=== PATIENT | male | born 1995 | race Caucasian/White ===

== ENCOUNTER 2024-06-07 16:07 | Inpatient (IN) ==
--- OUTSIDE RECORDS SUMMARY | 2024-06-07 16:14 | External Medical Summary ---
Author Name Unknown Address Unknown Organization [id number]:[facility] [place] [address] [place] [address] Laboratory Report Ordering Provider Test Date Status DMITRY GALVANN 06/02/2024 15:17:20 Final Observation Date Value Abnormality Reference (Units ) Status Chlamydia trachomatis rRNA [Presence] in Specimen by FLORENCE with probe detection 06/02/2024 15:17:20 Negative Negative Final No Chlamydia trachomatis det ected by inner layer scrubber tender-mediated nucleic acid amplification. Neisseria gonorrhoeae rRNA [ Presence] in Specimen by FLORENCE with probe detection 06/02/2024 15:17:20 Negative Negative Final No Neisseria gonorrhoeae det ected by inner layer scrubber tender-mediated nucleic acid amplification. Performing Location [facility] [place] [address] [place] [address]
--- OUTSIDE RECORDS SUMMARY | 2024-06-07 16:14 | External Medical Summary | Summary of Care ---
Author Name Unknown Organization [facility] Address [address] [place] [address] Phone [phone] Care Team Providers Care Cylinder Head Assembler Name Role Phone Andrea Romero Primary Care Provider [phone] Reason for Visit * Reason Onset Date Comments Advice 06/04/202406/06 Encounter Details Date Type Department Care Team ([facility] st Contact Info) Description 06/04/2024 Telephone [facility] [address] [place] [address] Andrea Romero CRNP [address] [place] [address] Advice (06/06) Allergies No known active allergiesdocumented as of this encounter (statuses as of 06/06/2024) Medications Albuterol Sulfate HFA 108 (90 Base) MCG/ACT Inhalation Aerosol SolutionIndicati ons:Acute cough Inhale 2 Puffs by mouth every 6 hours as needed for Wheezing. 18 g 3 Active Additional Information Patient not taking.Reported on 03/29/2024 Benzonatate 100 MG Oral Capsule (Tessalon Perlever)Indicatio ns:Upper respiratory tract infection, unspecified type Take 1 Capsule by mouth 3 times a day as needed for Cough. 20 Capsule 1 4 Active Cyclobenzaprine HCl 10 MG Oral Tablet (Flexeril) Take 1 Tablet by mouth 3 times a day as needed for Pain. 30 Tablet 4 Active Albuterol Sulfate HFA 108 (90 Base) MCG/ACT Inhalation Aerosol Solution Inhale 2 Puffs by mouth every 4 hours as needed for Cough. 18 g 5 Active Amoxicillin-Pot Clavulanate 875-125 MG Oral Tablet (Augmentin)Indic ations:Acute serous otitis media of left ear, recurrence not specified Take 1 Tablet by mouth in the morning and 1 Tablet before bedtime. Do all this for 10 days. 20 Tablet 5 06/13/19 25 Active Mupirocin 2 % External Ointment (Bactroban)Indic ations:Impetigo Apply topically to affected area 3 times a day for 10 days. 22 g 1 5 06/13/19 25 Active documented as of this encounter (statuses as of 06/06/2024) Active Problems Problem Noted Date Diagnosed Date Tobacco use disorder 05/10/2015 Respiratory symptoms 02/16/2006 Overview (12/12/2018): ICD-10 update of inactive term Chronic sinusitis 07/07/2005 Allergic rhinitis 07/07/2005 Undiagnosed cardiac murmurs documented as of this encounter (statuses as of 06/06/2024) Resolved Problems Problem Noted Date Diagnosed Date Resolved Date Paranoia 08/31/2021 07/27/2023 Obesity, pediatric, BMI 95th to 98th percentile for age 0306/03/2009 02/23/2022 Overview (06/03/2009): Per Obesity Taxonomy OBESITY, UNSPECIFIED 02/16/2006 010 Overview (06/03/2009): Per Obesity Taxonomy ADVANCE DIRECTIVE INFORMATION 01/05/2005 01/14/2024 Overview (01/05/2005): Not applicable (under age of 18) documented as of this encounter (statuses as of 06/06/2024) Immunizations Name Administration Dates Next Due DTP/HIB (Tetramune) 02/20/1996 DTaP Dipth/Tet/Acell Pertussis (Infanrix), Peds 02/12/2001,08/13/1997,06/26/1996,04/24,02/20/1996 HEP A - Hepatitis A (Ped/Ado le, 2-18 Yrs) 02/16/2006 HIB PRP-T, 4 Dose, PF, IM (H iberix, ActHib) 04/09/1997,06/26/1996,04/24/1996,02/19 Hepatitis A, Ped/Adol., 18 y ear and below, 2-Dose 08/19/2008 Hepatitis B, 0-19 yrs 09/23/1996,02/20/1996,12/10 IPV - Polio Virus Vaccine (Inact) 02/12/2001 MMR - Measles/Mumps/Rubella Vaccine 02/12/2001,0 04/09/1997 Meningococcal Conjugate Vacc ine (Menactra/Menveo) 07/03/2013,08/19/2008 OPV - Polio Virus Vaccine (Oral) 08/17/1997,04/12,02/20/1996 Pneumococcal Polysaccharide PPV23 (Pneumovax) 11/19/2015 Seasonal Influenza Vac., MDV , IM, 0.5 mL (Fluzone) 12/21/2013,12/04/2012,11/28/2011,02/16 Seasonal Influenza, PF, 6 M & above, IM , (FluLaval or Fluzone) 01/19/2022,12/31/2019 TB Melia Test 12/23/1996 TDAP (age 10 and older)(Boostrix) 02/16/2006 Varicella Vaccine (Chicken Pox) 08/19/2008,04/09 documented as of this encounter Social History Tobacco Use Types Packs/Day Years Used Date Smoking Tobacco: Every Day Cigarettes 1 9 Started: 06/23/2015 Smokeless Tobacco: Never Alcohol Use Standard Drinks/Week Comments No 0 (1 standard drink = 0.6 oz pur e alcohol) PHQ-2 Answer Date Recorded PHQ Adult Total Score 0 07/27/2023 Hunger Vital Sign Answer Date Recorded Within the past 12 months, y ou worried that your food would run out before you got the money to buy more. Never true 07/27/19 24 Within the past 12 months, t he food you bought just didn't last and you didn't have money to get more. Never true 07/27/2023 Childcare Answer Date Recorded Do you feel overwhelmed with taking care of a child, family member or friend? No 07/27/2023 Does your family need help f inding childcare? (Household - for ages 0-17 years) Not on file 07/27/2023 Clothing Answer Date Recorded Have you been unable to get clothing when it was really needed? No 07/27/2023 Is your family able to get c lothes or diapers when needed? (Household - for ages 0-17 years) Not on file 07/27/2023 Personal Safety Answer Date Recorded Do you feel unsafe or have concerns for your saf ety? No 07/27/2023 Do you have concerns for you r family's safety? (Household - for ages 0-17 years) Not on file 07/27/2023 Utilities Answer Date Recorded Do you have trouble paying y our heating, water, or electric bill? No 07/27/2023 Is your family able to pay t he heat, water, or electric bill? (Household - for ages 0-17 years) Not on file 07/27/2023 Does your family have access to good internet? (Household - for ages 0-17 years) Not on file 07/27/2023 Employment Status Answer Date Recorded Are you unemployed or without regular income? No 07/27/2023 Does the household have a re lar source of income? (Household - for ages 0-17 years) Not on file 07/27/2023 Social Connections Answer Date Recorded How often do you feel lonely or isolated from th ose around you? Never 07/27/2023 Financial Resource Strain Answer Date R ecorded Do you have any trouble payi ng for your medications, or do you think you might in the future? No 07/27/2023 Does your family have troubl e paying for medicine? (Household - for ages 0-17 years) Not on file 07/27/2023 Transportation Needs Answer Date Record ed READ ONLY Do you have troubl e getting a ride to medical visits or work? Never True 07/27/2023 Does your family have a hard time getting a ride to doctors visits? (Household - for ages 0-17 years) Not on file 07/27/2023 Has lack of transportation k ept you from medical appointments, meetings, work, or from getting things needed for daily living? Check all that apply. (Adult - for ages 18 years and over) Not on file 07/27/2023 Do you (or your family) have trouble finding or paying for a ride (transportation)? (Household - for ages 0-17 years) Not on file 07/27/2023 Housing Stability Answer Date Recorded Do you currently live in a s helter or have no steady place to sleep at night? No 07/27/2023 READ ONLY Do you think you a re at risk of becoming homeless? No 07/27/2023 Does your family worry about paying for your home or becoming homeless? (Household - for ages 0-17 years) Not on file 0 07/27/2023 Are you homeless or worried that you might be in the future? (Adult - for ages 18 years and over) Not on file Are you (or your family) leticia eless or worried that you might be in the future? (Household - for ages 0-17 years) Not on file Food Insecurity Answer Date Recorded Do you need food for this week? No 07/27/2023 Are you able to get enough f ood for your family? (Household - for ages 0-17 years) Not on file 07/27/2023 Does your family need food t his week? (Household - for ages 0-17 years) Not on file 07/27/2023 Do you always have enough fo od for your family? (Household - for ages 0-17 years) Not on file 07/27/2023 Food Insecurity Answer Date Recorded Within the past 12 months, y ou worried that your food would run out before you got the money to buy more. Never true 07/27/19 24 Within the past 12 months, t he food you bought just didn't last and you didn't have money to get more. Never true 07/27/2023 Do you need food for this week? No 07/27/2023 Sex and Gender Information Value Date Recorded Sex Assigned at Male 01/16/2023 12:42 PM EST Legal Sex Male 6:11 AM EST Gender Identity Male 01/16/2023 12:42 PM EST Sexual Orientation Choose not to disclose 2018 11:54 AM EDT documented as of this encounter Miscellaneous Notes * Telephone Encounter - Tammy Zamudio LPN - 06/06/2024 10:36 AM EDT T/C to pt at this time LVM to call clinic back at earliest convenience at [phone] * Telephone Encounter - Andrea Romero CRNP - 06/06/2024 9:31 AM EDT Needs appointment. If none available can go to CC. * Telephone Encounter - Erlinad Matias OSA - 06/04/2024 5:11 PM EDT Patient called and asked to talk to Andrea Romero. NEW. States that he is sweating from his nipple area on the right side. And he is having a very dry mouth even though he is drinking a lot of water.Also tooth pain. Please advise, thank you. documented in this encounter Plan of Treatment Health Maintenance Due Date Last Done Comments HIV Screening 12/19/2010 Hepatitis C Screening 12/19/2013 DTap/Tdap Vaccines (7 - Td or Tdap) 02/17/2016 02/16/2006, 02/12/2001, 08/13/1997, Additional history exists Pneumococcal Vaccine: Pediatrics (0 to 5 Years) and At-Risk Patients (6 to 18 Years and 19+ Years) (2 of 2 - PCV) 11/18/2016 11/19/2015 COVID-19 Vaccine (1 - season) 2023 Influenza Vaccine (FLU shot) (#1) 2023 01/19/2022, 12/31/2019, 12/21/2013, Additional history exists Depression Screening 07/26/2024 07/27/2023 Hepatitis B Vaccine Completed 09/23/1996, 02/20/1996, 1995 MENINGOCOCCAL (MENACTRA/MENVEO) Completed 07/03/2013, 08/19/2008 HPV (Gardasil) Vaccine Aged Out No lo nger eligible based on patient's age to complete this topic Meningitis B Vaccine (Bexsero/Trumemba) Aged Out No longer eligible based on patient's age to complete this topic documented as of this encounter Medical Devices Not on filedocumented as of this encounter Care Teams Cylinder Head Assembler Relationship Specialty Start Date End Date Andrea Romero CRNP [address] [place] [phone] PCP - General Nurse Practitioner 01/01/24 documented as of this encounter
--- OUTSIDE RECORDS SUMMARY | 2024-06-07 16:14 | External Medical Summary | Summary of Care ---
Author Name Unknown Organization [facility] Address [address] [place] [address] Phone [phone] Care Team Providers Care Seeing Eye Dog Trainer Name Role Phone Nick Andreage WOLFF Primary Care Provider Reason for Visit * Reason Onset Date Comments No Show 04/19/2024 [facility] No Show Auto mation Encounter Details Date Type Department Care Team ([facility] st Contact Info) Description 04/19/2024 Telephone [facility] [address] [place] [phone] Shelli Tello PA-C [address] [place] [phone] No Show ([place] No Show Automation) Allergies No known active allergiesdocumented as of this encounter (statuses as of 04/19/2024) Medications Albuterol Sulfate HFA 108 (90 Base) MCG/ACT Inhalation Aerosol SolutionIndicati ons:Acute cough Inhale 2 Puffs by mouth every 6 hours as needed for Wheezing. 18 g 3 Active Additional Information Patient not taking.Reported on 03/29/2024 Benzonatate 100 MG Oral Capsule (Tesdejuan Egan)Indicatio ns:Upper respiratory tract infection, unspecified type Take [...] needed for Cough. 18 g 5 Active documented as of this encounter (statuses as of 04/19/2024) Active Problems Problem Noted Date Diagnosed Date Tobacco use disorder 05/10/2015 Respiratory symptoms 02/16/2006 Overview (12/12/2018): ICD-10 update of inactive term Chronic sinusitis 07/07/2005 Allergic rhinitis 07/07/2005 Undiagnosed cardiac murmurs documented as of this encounter (statuses as of 04/19/2024) Resolved Problems Problem Noted Date Diagnosed Date Resolved Date Paranoia 08/31/2021 07/27/2023 Obesity, pediatric, BMI 95th to 98th percentile for age 0306/03/2009 02/23/2022 Overview (06/03/2009): Per Obesity Taxonomy OBESITY, UNSPECIFIED 02/16/2006 010 Overview (06/03/2009): Per Obesity Taxonomy ADVANCE DIRECTIVE INFORMATION 01/05/2005 01/14/2024 Overview (01/05/2005): Not applicable (under age of 18) documented as of this encounter (statuses as of 04/19/2024) Immunizations Name Administration Dates Next Due HEP A - Hepatitis A (Ped/Ado le, 2-18 Yrs) 02/16/2006 Hepatitis A, Ped/Adol., 18 y ear and below, 2-Dose 08/19/2008 Meningococcal Conjugate Vacc ine (Menactra/Menveo) 07/03/2013,08/19/2008 Pneumococcal Polysaccharide PPV23 (Pneumovax) 11/19/2015 Seasonal Influenza Vac., MDV , IM, 0.5 mL (Fluzone) 12/21/2013,12/04/2012,11/28/2011,02/16 Seasonal Influenza, PF, 6 M & above, IM , (FluLaval or Fluzone) 01/19/2022,12/31/2019 TDAP (age 10 and older)(Boostrix) 02/16/2006 Varicella Vaccine (Chicken Pox) 08/19/2008 documented as of this encounter Social History Tobacco Use Types Packs/Day Years Used Date Smoking Tobacco: Every Day Cigarettes 1 8.8 Started: 06/23/2015 Smokeless Tobacco: Never Alcohol Use [...] 07/27/2023 Does the household have a re gular source of income? (Household - for ages [...] encounter Miscellaneous Notes * Telephone Encounter - [facility], No Show - 04/19/2024 6:25 AM EST Dear Kadeem Vargas, Looks like you missed an appointment with SHELLI TELLO on 04/16/2024 at 02:20 PM. If you haven't already rescheduled, you have a couple of options: Reschedule in [employer] Community/scheduling Call us at [phone] Can't make a future appointment? Cancel and let someone else have your spot! It's easy to do via legalPAD or by calling us. Thanks for trusting [facility] with your care. We hope to see you back in our office soon. Sincerely, SHELLI TELLO documented in this encounter Plan of Treatment Health Maintenance Due Date Last Done Comments HIV Screening 12/19/2010 Hepatitis C Screening 12/19/2013 DTap/Tdap Vaccines (7 - Td or Tdap) 02/17/2016 02/16/2006, 02/12/2001, 08/13/1997, Additional history exists Pneumococcal Vaccine: Pediatrics (0 to 5 Years) and At-Risk Patients (6 to 18 Years and 19+ Years) (2 of 2 - PCV) 11/18/2016 11/19/2015 COVID-19 Vaccine (2023- season) 2023 Influenza Vaccine (FLU shot) (#1) 2023 01/19/2022, 12/31/2019, 12/21/2013, Additional history exists Depression Screening 07/26/2024 07/27/2023 Hepatitis B Vaccine Completed 09/23/1996, 02/20/1996, 1995 MENINGOCOCCAL (MENACTRA/MENVEO) Completed 07/03/2013, 08/19/2008 HPV (Gardasil) Vaccine Aged Out No lo nger eligible based on patient's age to complete this topic documented as of this encounter Medical Devices Not on filedocumented as of this encounter Additional Health Concerns Infection Onset Date Last Indicated Resolved Time Influenza (seasonal) 04/12/2024 04/12/2024 documented as of this encounter Care Teams Seeing Eye Dog Trainer Relationship Specialty Start Date End Date Andrea Romero CRNP [address] [place] [id number] PCP - General Nurse Practitioner 01/01/24 documented as of this encounter
--- OUTSIDE RECORDS SUMMARY | 2024-06-07 16:14 | External Medical Summary | Summary of Care ---
Author Name Unknown Organization [facility] Address [address] [place] [address] Phone [phone] Care Team Providers Care Computer Numerical Control Programmer Name Role Phone Andrea Romero Primary Care Provider [phone] Reason for Visit * Reason Onset Date Comments Advice 06/04/2024 Encounter Details Date Type Department Care Team ([facility] st Contact Info) Description 06/04/2024 Telephone [facility] [address] [place] [address] Andrea Romero CRNP [address] [place] [address] Advice Allergies No known active allergiesdocumented as of [...] No 07/27/2023 Does the [facility] have a [facility]? (Household - for ages [...] call clinic back at earliest convenience at [phone] * Telephone Encounter - Andrea Romero CRNP - 06/06/2024 9:31 AM EDT Needs appointment. If none available can go to CC. * Telephone Encounter - Erlinda Matias OSA - 06/04/2024 5:11 PM EDT [...] 2 - PCV) 11/18/2016 11/19/2015 COVID-19 Vaccine ( - season) 2023 Influenza Vaccine (FLU shot) [...] filedocumented as of this encounter Care Teams Computer Numerical Control Programmer Relationship Specialty Start Date End Date Andrea Romero CRNP [address] [place] [address] PCP - General Nurse Practitioner 01/01/24 documented as of this encounter
--- OUTSIDE RECORDS SUMMARY | 2024-06-07 16:14 | External Medical Summary ---
Author Name Unknown Address Unknown Organization K01:[facility] [place] [address] [place] [address] Laboratory Report Ordering Provider Test Date Status DMITRY GALVANN 06/02/2024 15:17:20 Final Observation Date Value Abnormality Reference (Units ) Status Trichomonas vaginalis rRNA [Presence] in Specimen by FLORENCE with probe detection 06/02/2024 15:17:20 Negative Negative Final No Trichomonas vaginalis det ected by excelsior machine tender mediated nucleic acid amplification. Performing Location [facility] [place] [address] [place] [address]
--- OUTSIDE RECORDS SUMMARY | 2024-06-07 16:14 | External Medical Summary ---
Author Name Unknown Address Unknown Organization K01:[facility] [place] - [address] [address] Laboratory Report Ordering Provider Test Date Status YUDELKA GALVAN 06/02/2024 15:17:20 Final Observation Date Value Abnormality Reference (Units ) Status Color of Urine by Auto 06/02/2024 15:17:20 Colorless Colorless, Light Yellow, Yellow, Dark Yellow Final Clarity, Urine 06/02/2024 15:17:20 Clear Clear Final Glucose [Mass/volume] in Urine by Automated test strip 06/02/2024 15:17:20 Negative Negative (mg/dL) Final Bilirubin.total [Presence] in Urine by Automated test strip 06/02/2024 15:17:20 Negative Negative Final Ketones [Mass/volume] in Urine by Automated test strip 06/02/2024 15:17:20 Negative Negative (mg/dL) Final Specific gravity, Urine 06/02/2024 15:17:20 1.003 1.003-1.030 Final Hemoglobin [Presence] in Urine by Automated test strip 06/02/2024 15:17:20 Negative Negative Final pH, Urine 06/02/2024 15:17:20 6.5 5.0-7.5 (Units) Final Protein [Mass/volume] in Urine by Automated test strip 06/02/2024 15:17:20 Negative Negative (mg/dL) Final Urobilinogen [Mass/volume] in Urine by Automated test strip 06/02/2024 15:17:20 Normal Normal (mg/dL) Final Nitrite [Presence] in Urine by Automated test strip 06/02/2024 15:17:20 Negative Negative Final Leukocyte esterase [Presence] in Urine by Automated test strip 06/02/2024 15:17:20 Negative Negative Final RBC, Urine 06/02/2024 15:17:20 0-2 0-2 (/HPF) Final WBC, Urine 06/02/2024 15:17:20 0-2 0-2 (/HPF) Final Bacteria [#/area] in Urine sediment by Microscopy high power field 06/02/2024 15:17:20 0-25 0-25 (/HPF) Final CULTURE, URINE - GUERO 06/02/2024 15:17:20 Final Culture not indicated by uri nalysis results\[id number]\ Performing Location [facility] [place] - [facility] [address] [facility] [address]
--- OUTSIDE RECORDS SUMMARY | 2024-06-07 16:14 | External Medical Summary | Summary of Care ---
Author Name Unknown Organization [facility] Address [address] [place] [address] Phone [phone] Care Team Providers Care Content Writer Name Role Phone Nick Andreage WOLFF Primary Care Provider [phone] Reason for Visit * Reason Onset Date Comments Test Results 06/03/2024 Encounter Details Date Type Department Care Team ([facility] Contact Info) Description 06/03/2024 Telephone [facility] [address] [place] [address] Jason Caputo PA-C [address] [place] [phone] Test Results Allergies No known active allergiesdocumented as of this encounter (statuses as of 06/04/2024) Medications Albuterol Sulfate HFA 108 (90 Base) [...] as of this encounter (statuses as of 06/04/2024) Active Problems Problem Noted Date Diagnosed Date Tobacco use disorder 05/10/2015 Respiratory symptoms 02/16/2006 Overview (12/12/2018): ICD-10 update of inactive term Chronic sinusitis 07/07/2005 Allergic rhinitis 07/07/2005 Undiagnosed cardiac murmurs documented as of this encounter (statuses as of 06/04/2024) Resolved Problems Problem Noted Date Diagnosed Date Resolved Date Paranoia 08/31/2021 07/27/2023 Obesity, pediatric, BMI 95th to 98th percentile for age 0306/03/2009 02/23/2022 Overview (06/03/2009): Per Obesity Taxonomy OBESITY, UNSPECIFIED 02/16/2006 010 Overview (06/03/2009): Per Obesity Taxonomy ADVANCE DIRECTIVE INFORMATION 01/05/2005 01/14/2024 Overview (01/05/2005): Not applicable (under age of 18) documented as of this encounter (statuses as of 06/04/2024) Immunizations Name Administration Dates Next Due HEP [...] encounter Miscellaneous Notes * Telephone Encounter - Yvonne Lozano LPN - 06/03/2024 5:09 PM EDT I identified pt by name and , verified by patient. Pt has been informed of below message and verbalized understanding. * Telephone Encounter - Jason Caputo PA-C - 06/03/2024 3:31 PM EDT Urine and STD tests came back negative. I advise follow up w/ PCP if symptoms continue documented in this encounter Plan of Treatment Health Maintenance Due Date Last Done Comments HIV Screening 12/19/2010 Hepatitis C Screening 12/19/2013 DTap/Tdap Vaccines (7 - Td or Tdap) 02/17/2016 02/16/2006, 02/12/2001, 08/13/1997, Additional history exists Pneumococcal Vaccine: Pediatrics (0 to 5 Years) and At-Risk Patients (6 to 18 Years and 19+ Years) (2 of 2 - PCV) 11/18/2016 11/19/2015 COVID-19 Vaccine (1 - 2023- season) 2023 Influenza Vaccine (FLU shot) (#1) [...] filedocumented as of this encounter Care Teams Content Writer Relationship Specialty Start Date End Date Andrea Romero CRNP [address] [place] [address] PCP - General Nurse Practitioner 01/01/24 documented as of this encounter
--- OUTSIDE RECORDS SUMMARY | 2024-06-07 16:14 | External Medical Summary | Summary of Care ---
Author Name Unknown Organization [facility] Address [address] [place] [address] Phone [phone] Care Team Providers Care Client Architect Name Role Phone Andrea Romero Primary Care Provider [phone] Reason for Visit * Reason Onset Date Comments Advice 06/04/202406/06 Encounter Details Date Type Department Care Team ([facility] st Contact Info) Description 06/04/2024 Telephone [facility] [address] [place] [address] Andrea Romero CRNP [address] [place] [address] Advice (06/06) Allergies No [...] call clinic back at earliest convenience at [phone] * Telephone Encounter - Andrea Romero CRNP [...] filedocumented as of this encounter Care Teams Client Architect Relationship Specialty Start Date End Date Andrea Romero CRNP [address] [place] [phone] PCP - General Nurse Practitioner 01/01/24 documented as of this encounter
--- OUTSIDE RECORDS SUMMARY | 2024-06-07 16:14 | External Medical Summary | Summary of Care ---
Author Name Unknown Organization [facility] Address [address] [place] [address] Phone [phone] Care Team Providers Care Monitoring Coordinator Name Role Phone Andrea Romero Primary Care Provider Reason for Visit * Reason Comments Ear Pain Bilateral ear pain Urinary Tract Infection Symptoms Pain in genital area Other Bump on head Headache Encounter Details Date Type Department Care Team (Latest Contact Info) Description 06/02/2024 3:00 PM EDT Convenient Care Visit [facility] [address] [place] [address] Jason Caputo PA-C [address] [place] [id number] UTI symptoms*; Impetigo; Acute serous otitis media of left ear, recurrence not specified; Dysuria Allergies No known active allergiesdocumented as of this encounter (statuses as of 06/03/2024) Medications Albuterol Sulfate HFA 108 (90 Base) MCG/ACT Inhalation Aerosol SolutionIndicati ons:Acute cough Inhale 2 Puffs by mouth every 6 hours as needed for Wheezing. 18 g 3 Active Additional Information Patient not taking.Reported on 03/29/2024 Benzonatate 100 MG Oral Capsule (Katey Egan)Indicatio ns:Upper respiratory tract infection, unspecified type [...] as of this encounter (statuses as of 06/03/2024) Active Problems Problem Noted Date Diagnosed Date Tobacco use disorder 05/10/2015 Respiratory symptoms 02/16/2006 Overview (12/12/2018): ICD-10 update of inactive term Chronic sinusitis 07/07/2005 Allergic rhinitis 07/07/2005 Undiagnosed cardiac murmurs documented as of this encounter (statuses as of 06/03/2024) Resolved Problems Problem Noted Date Diagnosed Date Resolved Date Paranoia 08/31/2021 07/27/2023 Obesity, pediatric, 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 to 98th percentile for age 0306/03/2009 02/23/2022 Overview (06/03/2009): Per Obesity Taxonomy OBESITY, UNSPECIFIED 02/16/2006 010 Overview (06/03/2009): Per Obesity Taxonomy ADVANCE DIRECTIVE INFORMATION 01/05/2005 01/14/2024 Overview (01/05/2005): Not applicable (under age of 18) documented as of this encounter (statuses as of 06/03/2024) Immunizations Name Administration Dates Next Due HEP [...] Date Smoking Tobacco: Every Day Cigarettes 1 8.9 Started: 06/23/2015 Smokeless Tobacco: Never Tobacco Cessation:Ready to Q uit: Not Asked; Counseling Given: Not Answered Alcohol Use Standard Drinks/Week Comments No 0 [...] money to buy more. Never true 07/27/19 Within the past 12 months, t he [...] AM EDT documented as of this encounter Last Filed Vital Signs Vital Sign Reading Time Taken Comments Blood Pressure 112/68 06/02/2024 3:01 PM EDT Pulse 97 06/02/2024 3:01 PM EDT Temperature 37.7 °C (99.9 °F) 06/02/2024 3:01 PM ED T Respiratory Rate 16 06/02/2024 3:01 PM EDT Oxygen Saturation 97% 06/02/2024 3:01 PM EDT Inhaled Oxygen Concentration - - Weight 83.6 kg (184 lb 6.4 oz) 06/02/2024 3:01 P M EDT Height 177.8 cm (5' 10") 06/02/2024 3:01 PM EDT Body Mass Index 26.46 06/02/2024 3:01 PM EDT documented in this encounter Patient Instructions * Patient Instructions* Jason Caputo PA-C - 06/02/2024 3:23 PM EDT Left ear infection, mild impetigo on scalp- augmentin should cover both Use bactroban on scalp Pain on urination has unclear cause- could be dehydration- will order testing and reach out w// results documented in this encounter Progress Notes * Jason Caputo PA-C - 06/02/2024 3:16 PM EDT Images from the original note were not included. History of Present Illness Kadeem Vargas is a 28 year old male that presents for Ear Pain (Bilateral ear pain), Urinary Tract Infection Symptoms (Pain in genital area), Other (Bump on head), and Headache 1 week of congestion, cough, ear pain- slight rash on top of head- NKI- been there a few dys- itchy. Also dysuria past few dys, no genital swellign or lesions- unsure of STI exp Ear Pain There is pain in both ears. This is a new problem. The current episode started in the past 7 days. The problem occurs constantly. The problem has been unchanged. There has been no fever. The pain is moderate. Associated symptoms include coughing, headaches and rhinorrhea. He has tried nothing for the symptoms. Urinary Tract Infection Symptoms Headache Physical Exam Vitals: 06/02/24 1501 Temp: 37.7 °C (99.9 °F) Pulse: 97 Resp: 16 SpO2: 97% BP: 112/68 BMI: 26.46 Physical Exam HENT: Head: Normocephalic and atraumatic. Right Ear: Ear canal normal. Left Ear: Ear canal normal. Ears: Comments: Effusions B TMS, injection L TM Nose: Congestion and rhinorrhea present. Mouth/Throat: Mouth: Mucous membranes are moist. Pharynx: Oropharynx is clear. No posterior oropharyngeal erythema. Eyes: Conjunctiva/sclera: Conjunctivae normal. Cardiovascular: Rate and Rhythm: Normal rate and regular rhythm. Heart sounds: Normal heart sounds. Pulmonary: Effort: Pulmonary effort is normal. Breath sounds: Normal breath sounds. Abdominal: General: Abdomen is flat. Bowel sounds are normal. There is no distension. Palpations: Abdomen is soft. Tenderness: There is no abdominal tenderness. There is no right CVA tenderness or left CVA tenderness. Genitourinary: Penis: Normal. Testes: Normal. Comments: Testes descended- no rashes lesions externally Lymphadenopathy: Cervical: No cervical adenopathy. Skin: Comments: Top of head has a nickel size area of erythema, crusting- mild ttp- midline- single lesion- not dermatomal I have reviewed the following results: UA neg here Assessment and Plan UTI symptoms (Primary) - URINALYSIS, POINT OF CARE (ENTER/EDIT) - URINALYSIS, REFLEX TO CULTURE (NOT FOR NEUTROPENIC PATIENTS); Future; Expected date: 06/03/2024 - CHLAMYDIA TRACHOMATIS AND NEISSERIA GONORRHOEAE, AMPLIFIED PROBE; Future; Expected date: 06/03/2024 - TRICHOMONAS VAGINALIS, AMPLIFIED PROBE; Future; Expected date: 06/03/2024 - URINALYSIS, REFLEX TO CULTURE (NOT FOR NEUTROPENIC PATIENTS) - CHLAMYDIA TRACHOMATIS AND NEISSERIA GONORRHOEAE, AMPLIFIED PROBE - TRICHOMONAS VAGINALIS, AMPLIFIED PROBE Impetigo - Mupirocin 2 % External Ointment (Bactroban); Apply topically to affected area 3 times a day for 10 days. Acute serous otitis media of left ear, recurrence not specified - Amoxicillin-Pot Clavulanate 875-125 MG Oral Tablet (Augmentin); Take 1 Tablet by mouth in the morning and 1 Tablet before bedtime. Do all this for 10 days. Dysuria Follow Up: Return if symptoms worsen or fail to improve. Left ear infection, mild impetigo on scalp- augmentin should cover both Use bactroban on scalp Pain on urination has unclear cause- could be dehydration- will order testing and reach out w// results Wrap-Up Follow Up: Return if symptoms worsen or fail to improve. Time: I spent a total of 10-19 minutes (exact time 15 mins) on the date of service in preparation, delivery, and documentation of the care provided to Kadeem Vargas excluding any time spent in the performance of separately billed services. documented in this encounter Nursing Notes * Thomas Miles CMA - 06/02/2024 3:04 PM EDT Kadeem Vargas is a 28 year old male who presents to walk-in clinic today complaining of Chief Complaint Patient presents with Ear Pain Bilateral ear pain Urinary Tract Infection Symptoms Pain in genital area Other Bump on head Headache Onset/duration: X1 week. OTC treatments tried:Tylenol Effectiveness: NONE Patient is accompanied by no one for today's visit. documented in this encounter Plan of Treatment Pending Results Name Type Priority Associated Diagnoses Date /Time CHLAMYDIA TRACHOMATIS AND NEISSERIA GONORRHOEAE, AMPLIFIED PROBE Lab Routine UTI symptoms 06/02/2024 3:17 PM EDT TRICHOMONAS VAGINALIS, AMPLIFIED PROBE Lab Routine UTI symptoms 06/02/2024 3:17 PM EDT Scheduled Orders Name Type Priority Associated Diagnoses Orde r Schedule CHLAMYDIA TRACHOMATIS AND NEISSERIA GONORRHOEAE, AMPLIFIED PROBE Lab Routine UTI symptoms Expected: 06/03/2024, Expires: 06/02/2025 TRICHOMONAS VAGINALIS, AMPLIFIED PROBE Lab Routine UTI symptoms Expected: 06/03/2024, Expires: 06/02/2025 Health Maintenance Due Date Last Done Comments [...] Not on filedocumented as of this encounter Procedures Procedure Name Priority Date/Time Associated Diagnosis Comments URINALYSIS, REFLEX TO CULTURE Routine 06/02/2024 3:17 PM EDT UTI symptoms URINALYSIS, REFLEX TO CULTURE (CUP ONLY) Routine 06/02/2024 3:17 PM EDT UTI symptoms URINALYSIS, REFLEX TO CULTURE (NOT FOR NEUTROPENIC PATIENTS) Routine 06/02/2024 3:17 PM EDT UTI symptoms URINALYSIS, POINT OF CARE (ENTER/EDIT) Routine 06/02/2024 3:09 PM EDT UTI symptoms documented in this encounter Results * URINALYSIS, REFLEX TO CULTURE (06/02/2024 3:17 PM EDT) Color, Urine Colorless Colorless, Light Yellow, Yellow, Dark Yellow 06/03/2024 12:28 AM EDT [facility] Clarity, Urine Clear Clear 06/03/2024 12:28 AM EDT [facility] Glucose, Urine Negative Negative mg/dL 06/03/2024 12:28 AM EDT [facility] Bilirubin, Urine Negative Negative 06/03/2024 12:28 AM EDT [facility] Ketone, Urine Negative Negative mg/dL 06/03/2024 12:28 AM EDT [facility] Specific [place], Urine 1.003 1.003 - 1.030 06/03/2024 12:28 AM EDT LABORATORY C Blood, Urine Negative Negative 06/03/2024 12:28 AM EDT LABORATORY C pH, Urine 6.5 5.0 - 7.5 Units 06/03/2024 12:28 AM EDT [facility] Protein, Urine Negative Negative mg/dL 06/03/2024 12:28 AM EDT LABORATORY C Urobilinogen, Urine Normal Normal mg/dL 06/03/2024 12:28 AM EDT [facility] Nitrite, Urine Negative Negative 06/03/2024 12:28 AM EDT [facility] Esterase, Urine Negative Negative 06/03/2024 12:28 AM EDT [facility] RBC, Urine 0-2 0 - 2 /HPF 06/03/2024 12:28 AM EDT [facility] WBC, Urine 0-2 0 - 2 /HPF 06/03/2024 12:28 AM EDT [facility] Bacteria, Urine 0-25 0 - 25 /HPF 06/03/2024 12:28 AM EDT [facility] Culture, Urine 06/03/2024 12:28 AM EDT [facility] Comment:Culture not indicate d by urinalysis results Urine Urine specimen obtained by clean catch procedure / Unknown Non-blood Collection / Unknown 06/02/2024 3:17 PM EDT 06/02/2024 3:17 PM EDT Jason Caputo PA-C LAB URINE ORDERABLES Fin al Result Performing Organization Address City/[facility]/ZIP Co de Phone Number LABORATORY [place] [address] [place] [address] * URINALYSIS, REFLEX TO CULTURE (CUP ONLY) (06/02/2024 3:17 PM EDT) Urinalysis, Reflex to Culture Specimen Specimen collected and received 06/02/2024 5:02 PM EDT [facility] Urine Urine specimen obtained by clean catch procedure / Unknown Non-blood Collection / Unknown 06/02/2024 3:17 PM EDT 06/02/2024 3:17 PM EDT Jason Caputo PA-C LAB URINE ORDERABLES Fin al Result Performing Organization Address City/[facility]/ZIP Co de Phone Number LABORATORY [facility] [address] [place] [address] * URINALYSIS, POINT OF CARE (ENTER/EDIT) (06/02/2024 3:09 PM EDT) Color, Urine Light Yellow Yellow or Light Yellow Clarity, Urine Clear Clear Glucose, Urine Negative Negative mg/dL Bilirubin, Urine Negative Negative Ketone, Urine Negative Negative mg/dL Specific [place], Urine 1.005 1.003 - 1.030 Blood, Urine Negative Negative pH, Urine 6.5 5.0 - 7.5 units Protein, Urine Negative Negative mg/dL Urobilinogen, Urine 0.2 0.2 - 1.0 mg/dL Nitrite, Urine Negative Negative Esterase, Urine Negative Negative Urine 06/02/2024 3:09 PM EDT Jason Caputo PA-C LAB POINT OF CARE TEST E NTER/EDIT ORDERABLES Final Result documented in this encounter Visit Diagnoses Diagnosis UTI symptoms- Primary Other symptoms involving urinary system Impetigo Acute serous otitis media of left ear, recurrence not specified Dysuria documented in this encounter Care Teams Monitoring Coordinator Relationship Specialty Start Date End Date Andrea Romero CRNP [address] [place] [address] PCP - General Nurse Practitioner 01/01/24 documented as of this encounter
--- OUTSIDE RECORDS SUMMARY | 2024-06-07 16:15 | External Medical Summary | Summary of Care ---
Author Name Unknown Organization [facility] Address [address] [place] [address] Phone [phone] Care Team Providers Care Tutor Coordinator Name Role Phone Andrea Romero Primary Care Provider [phone] Reason for Visit * Reason Comments Cough Cold Symptoms Congestion Short of Breath Encounter Details Date Type Department Care Team (Latest Contact Info) Description 03/29/2024 7:30 PM EST [facility] [address] [place] [address] Suyapa Hart CRNP [address] [place] [address] Acute bilateral otitis media* Allergies No known active allergiesdocumented as of this encounter (statuses as of 03/29/2024) Medications Albuterol Sulfate HFA 108 (90 Base) MCG/ACT Inhalation Aerosol SolutionIndicati ons:Acute cough Inhale 2 Puffs by mouth every 6 hours as needed for Wheezing. 18 g 3 Active Additional Information Patient not taking.Reported on 03/29/2024 Benzonatate 100 MG Oral Capsule (Tessalabelardo Egan)Indicatio ns:Upper respiratory tract infection, unspecified type Take 1 Capsule by mouth 3 times a day as needed for Cough. 20 Capsule 1 4 Active Cyclobenzaprine HCl 10 MG Oral Tablet (Flexeril) Take 1 Tablet by mouth 3 times a day as needed for Pain. 30 Tablet 4 Active Amoxicillin-Pot Clavulanate 875-125 MG Oral Tablet (Augmentin)Indic ations:Acute bilateral otitis media Take 1 Tablet by mouth in the morning and 1 Tablet before bedtime. Do all this for 10 days. 20 Tablet 5 04/08/19 25 Active documented as of this encounter (statuses as of 03/29/2024) Active Problems Problem Noted Date Diagnosed Date Tobacco use disorder 05/10/2015 Respiratory symptoms 02/16/2006 Overview (12/12/2018): ICD-10 update of inactive term Chronic sinusitis 07/07/2005 Allergic rhinitis 07/07/2005 Undiagnosed cardiac murmurs documented as of this encounter (statuses as of 03/29/2024) Resolved Problems Problem Noted Date Diagnosed Date Resolved Date Paranoia 08/31/2021 07/27/2023 Obesity, pediatric, BMI 95th to 98th percentile for age 0306/03/2009 02/23/2022 Overview (06/03/2009): Per Obesity Taxonomy OBESITY, UNSPECIFIED 02/16/2006 010 Overview (06/03/2009): Per Obesity Taxonomy ADVANCE DIRECTIVE INFORMATION 01/05/2005 01/14/2024 Overview (01/05/2005): Not applicable (under age of 18) documented as of this encounter (statuses as of 03/29/2024) Immunizations Name Administration Dates Next Due HEP [...] 1 8.8 Started: 06/23/2015 Smokeless Tobacco: Never Tobacco Cessation:Ready to Q uit: No; Counseling Given: No Alcohol Use Standard Drinks/Week Comments No 0 [...] ages 0-17 years) Not on file 07/27/2023 Sex and Gender Information Value Date Recorded Sex Assigned at Male 01/16/2023 12:42 PM EST Legal Sex Male 6:11 AM EST Gender Identity Male 01/16/2023 12:42 PM EST Sexual Orientation Choose not to disclose 2018 11:54 AM EDT documented as of this encounter Last Filed Vital Signs Vital Sign Reading Time Taken Comments Blood Pressure 120/66 03/29/2024 4:42 PM EST Pulse 87 03/29/2024 4:42 PM EST Temperature 36.8 °C (98.3 °F) 03/29/2024 4:42 PM ES T Respiratory Rate 16 03/29/2024 4:42 PM EST Oxygen Saturation 97% 03/29/2024 4:42 PM EST Inhaled Oxygen Concentration - - Weight 87.5 kg (193 lb) 03/29/2024 4:42 PM EST Height 167.6 cm (5' 6") 03/29/2024 4:42 PM EST Body Mass Index 31.15 03/29/2024 4:42 PM EST documented in this encounter Patient Instructions * Patient Instructions* Suyapa Hart CRNP - 03/29/2024 4:57 PM EST Reassurance given. Viral illnesses can last 10-14 days before the symptoms resolve. Treatment is supportive. Rest Increase fluids. OK to take Tylenol or ibuprofen for any aches, pains, fever. Follow directions on package. OK to take over the counter pseudophedrine as needed for congestion. Advised patient this will needto be picked up at the pharmacy counter. OK to use nasal saline 2 spray in each nostril 3-4 times daily as needed. OK to use over the counter Claritin (loratidine) for allergies. Follow directions on package. OK to use over the counter Mucinex DM to help with cough. Follow directions on package. To ER if symptoms worsen including productive cough, or shortness of breath. Rest Increase fluids. Warm compresses x 10 min as needed. OK to take over the counter Tylenol or ibuprofen as needed. Take the antibiotic twice a day for 10 days documented in this encounter Progress Notes * Suyapa Hart CRNP - 03/29/2024 4:45 PM EST Convenient Care Basic Exam Kadeem Vargas is a 28 year old year old male who presents for evaluation of: ear pain, for a week, sore throat, dry cough, NOT SOB, no other complaints Associated Symptoms: Admits to: no other complaints Denies: no other complaints REVIEW OF SYSTEMS: See HPI for pertinent positives and negatives. Patient denies addtional complaints. PAST MEDICAL HISTORY: Past Medical History: Diagnosis Date Other symptoms involving respiratory system and chest Undiagnosed cardiac murmurs Past Surgical History: Procedure Laterality Date DENTAL SURGERY PROCEDURE NEC Dental Surgery Procedure Social History Tobacco Use Smoking status: Every Day Current packs/day: 1.00 Average packs/day: 1 pack/day for 8.8 years (8.8 ttl pk-yrs) Types: Cigarettes Start date: 06/23/2015 Smokeless tobacco: Never Substance Use Topics Alcohol use: No Vaping/E-Cigarette Use Vaping/E-Cigarette Use Never User Vaping/E-Cigarette Substances Vaping/E-Cigarette Devices Patient Active Problem List Diagnosis Undiagnosed cardiac murmurs Chronic sinusitis Allergic rhinitis Respiratory symptoms Tobacco use disorder Review of patient's allergies indicates: No Known Allergies Current Outpatient Medications Medication Sig Dispense Refill Benzonatate 100 MG Oral Capsule (Tessalon Perles) Take 1 Capsule by mouth 3 times a day as needed for Cough. 20 Capsule 1 Cyclobenzaprine HCl 10 MG Oral Tablet (Flexeril) Take 1 Tablet by mouth 3 times a day as needed forPain. 30 Tablet 0 Albuterol Sulfate HFA 108 (90 Base) MCG/ACT Inhalation Aerosol Solution Inhale 2 Puffs by mouth every 6 hours as needed for Wheezing. (Patient not taking: Reported on 07/27/2023) 18 g 0 No current facility-administered medications for this visit. Nursing Notes and Vital Signs reviewed. PHYSICAL EXAM: VITALS: BP 120/66 | Pulse 87 | Temp 36.8 °C (98.3 °F) (Tympanic) | Resp 16 | Ht 1.676 m (5' 6") |Wt 87.5 kg (193 lb) | SpO2 97% | BMI 31.15 kg/m² | BSA 2.02 m² GENERAL: alert, healthy, no distress, well nourished, and well developed HEAD: Normocephalic, No masses, lesions, tenderness or abnormalities EARS: External ears normal, Canals clear, loss of landmarks in both ears, no change in hearing. No draiange NOSE: no mucosal erythema, no mucosal edema, no purulent discharge OROPHARYNX: no exudate, no erythema, lips, buccal mucosa, and tongue normal, and mucous membranes are moist NECK: supple, small benign anterior cervical nodes bilaterally HEART: regular rate & rhythm LUNGS: normal respiratory rate and rhythm, lungs clear to auscultation Assessment: Acute bilateral otitis media (Primary) - Amoxicillin-Pot Clavulanate 875-125 MG Oral Tablet (Augmentin); Take 1 Tablet by mouth in the morning and 1 Tablet before bedtime. Do all this for 10 days. [place] [address] [facility] [id number] documented in this encounter Nursing Notes * Zoë Davidson CMA - 03/29/2024 4:44 PM EST Kadeem Vargas is a 28 year old male who presents to walk-in clinic today complaining of Chief Complaint Patient presents with Cough Cold Symptoms Congestion Short of Breath Brief history:Has sinus pressure, BL ears feel blocked, unproductive cough, chest congestion and increased shortness of breath Onset/duration: over 1 week . OTC treatments tried:cough drops Flonase Tylenol Effectiveness: No relief Patient is accompanied by self for today's visit. documented in this encounter [...] Not on filedocumented as of this encounter Visit Diagnoses Diagnosis Acute bilateral otitis media- Primary Unspecified otitis media documented in this encounter Care Teams Tutor Coordinator Relationship Specialty Start Date End Date Andrea Romero CRNP [address] [place] [id number] PCP - General Nurse Practitioner 01/01/24 documented as of this encounter
--- OUTSIDE RECORDS SUMMARY | 2024-06-07 16:15 | External Medical Summary | Summary of Care ---
Author Name Unknown Organization [facility] Address [address] [place] [address] Phone [phone] Care Team Providers Care Clinical Material Handler Name Role Phone Andrea Romero Primary Care Provider [phone] Reason for Visit * Reason Comments Acute Pt c/o headache and sinus issues. X 1 week. Flonase OTC with some relief. Encounter Details Date Type Department Care Team ([facility] st Contact Info) Description 01/08/2024 5:40 PM EDT Office Visit [facility] [address] [place] [address] Margaret Whitmore CRNP [address] [place] [address] Upper respiratory tract infection, unspecified type*; Acute serous otitis media, recurrence not specified, unspecified laterality; Pain, dental Allergies No known active allergiesdocumented as of this encounter (statuses as of 01/08/2024) Medications Medication Sig Dispensed Refills Start Date End Date Status Lurasidone HCl 60 MG Oral Tablet (Latuda) TAKE 1 TABLET BY MOUTH ONCE A DAY AFTER A MEAL 07/23/2022 Active Fluticasone Propionate 50 MCG/ACT Nasal Suspension (Flonase)Indication s:Acute rhinosinusitis Administer 2 Sprays into each nostril in the morning. 18 mL 08/01/2022 Active Additional Information Patient not taking.Reported on 07/27/2023 Albuterol Sulfate HFA 108 (90 Base) MCG/ACT Inhalation Aerosol SolutionIndications :Acute cough Inhale 2 Puffs by mouth every 6 hours as needed for Wheezing. 18 g 01/16/2023 Active Additional Information Patient not taking.Reported on 07/27/2023 Azithromycin 250 MG Oral Tablet (Zithromax Z-Benton)Indications:B ronchitis, complicated Take two tablets by mouth on first day, then 1 tablet daily until gone 6 Tablet 11/01/2023 Active Additional Information Patient not taking.Reported on 01/08/2024 Benzonatate 100 MG Oral Capsule (Tessalon Perles)Indications: Upper respiratory tract infection, unspecified type Take 1 Capsule by mouth 3 times a day as needed for Cough. 20 Capsule 1 01/08/2024 Active Amoxicillin 500 MG Oral Capsule (Amoxil)Indications :Acute serous otitis media, recurrence not specified, unspecified laterality Take 1 Capsule by mouth in the morning and 1 Capsule before bedtime. Do all this for 10 days. 20 Capsule 01/08/2024 Active Chlorhexidine Gluconate 0.12 % Mouth/Throat Solution (Periogard)Indicati ons:Pain, dental Swish and spit 15 mL in the morning and 15 mL before bedtime. 473 mL 01/08/2024 Active Benzonatate 100 MG Oral Capsule (Tessalon Perles)Indications: Bronchitis, complicated Take 1 Capsule by mouth 3 times a day as needed for Cough. 20 Capsule 1 11/01/2023 Discontinu ed(Refill) documented as of this encounter (statuses as of 01/08/2024) Active Problems Problem Noted Date Diagnosed Date Tobacco use disorder 05/10/2015 Respiratory symptoms 02/16/2006 Overview: ICD-10 update of inactive term Chronic sinusitis 07/07/2005 Allergic rhinitis 07/07/2005 ADVANCE DIRECTIVE INFORMATION 01/05/2005 Overview: Not applicable (under age of 18) Undiagnosed cardiac murmurs documented as of this encounter (statuses as of 01/08/2024) Resolved Problems Problem Noted Date Diagnosed Date Resolved Date Paranoia 08/31/2021 07/27/2023 Obesity, pediatric, BMI 95th to 98th percentile for age 0306/03/2009 02/23/2022 Overview: Per Obesity Taxonomy OBESITY, UNSPECIFIED 02/16/2006 010 Overview: Per Obesity Taxonomy documented as of this encounter (statuses as of 01/08/2024) Immunizations Name Administration Dates Next Due HEP [...] Date Smoking Tobacco: Every Day Cigarettes 1 8.5 Started: 06/23/2015 Smokeless Tobacco: Never Alcohol Use [...] Assigned at Male 01/16/2023 12:42 PM EST Gender Identity Male 01/16/2023 12:42 PM EST Sexual Orientation Choose not to disclose 2018 11:54 AM EDT Job Start Date Occupation Industry Not on file Not on file Not on file documented as of this encounter Last Filed Vital Signs Vital Sign Reading Time Taken Comments Blood Pressure 126/56 01/08/2024 5:39 PM EDT Pulse 88 01/08/2024 5:39 PM EDT Temperature 37.4 °C (99.3 °F) 01/08/2024 5:39 PM ED T Respiratory Rate 16 01/08/2024 5:39 PM EDT Oxygen Saturation 98% 01/08/2024 5:39 PM EDT Inhaled Oxygen Concentration - - Weight 82.8 kg (182 lb 9.6 oz) 01/08/2024 5:39 P M EDT Height - - Body Mass Index 26.2 11/01/2023 11:34 AM EDT documented in this encounter Progress Notes * Margaret Whitmore CRNP - 01/08/2024 5:50 PM EDT Images from the original note were not included. History of Present Illness Kadeem Vargas is a 28 year old male that presents for Acute (Pt c/o headache and sinus issues. X 1 week. Flonase OTC with some relief. ) Kadeem presents to the clinic for one week of cough, headache and bilateral ear pain. He has been using nasal spray and OTC medication without relief. He reports that his cough is nonproductive and he hasn't had a fever. Review of Systems Constitutional: Negative for appetite change, chills, fatigue and fever. HENT: Positive for ear pain. Respiratory: Positive for cough. Gastrointestinal: Negative for diarrhea, nausea and vomiting. Genitourinary: Negative for difficulty urinating. Neurological: Positive for headaches. Physical Exam BP 126/56 | Pulse 88 | Temp 37.4 °C (99.3 °F) (Tympanic) | Resp 16 | Wt 82.8 kg (182 lb 9.6 oz) |SpO2 98% | BMI 26.20 kg/m² | BSA 2.02 m² Physical Exam Vitals and nursing note reviewed. Constitutional: Appearance: Normal appearance. HENT: Head: Normocephalic and atraumatic. Right Ear: External ear normal. Left Ear: External ear normal. Tenderness present. A middle ear effusion is present. Nose: Nose normal. Mouth/Throat: Mouth: Mucous membranes are moist. Dentition: Dental tenderness and dental caries present. Pharynx: Oropharynx is clear. Uvula midline. Eyes: Pupils: Pupils are equal, round, and reactive to light. Cardiovascular: Rate and Rhythm: Normal rate and regular rhythm. Pulses: Normal pulses. Heart sounds: Normal heart sounds. Pulmonary: Effort: Pulmonary effort is normal. Breath sounds: Normal breath sounds. Skin: Capillary Refill: Capillary refill takes less than 2 seconds. Neurological: General: No focal deficit present. Mental Status: He is alert and oriented to person, place, and time. I have reviewed most recent labs None Assessment and Plan Upper respiratory tract infection, unspecified type (Primary) - Benzonatate 100 MG Oral Capsule (Tessalon Perles); Take 1 Capsule by mouth 3 times a day as needed for Cough. Acute serous otitis media, recurrence not specified, unspecified laterality - Amoxicillin 500 MG Oral Capsule (Amoxil); Take 1 Capsule by mouth in the morning and 1 Capsule before bedtime. Do all this for 10 days. Pain, dental - Chlorhexidine Gluconate 0.12 % Mouth/Throat Solution (Periogard); Swish and spit 15 mL in the morning and 15 mL before bedtime. Wrap-Up Time: I spent a total of 20-29 minutes (exact time 20 mins) on the date of service in preparation, delivery, and documentation of the care provided to Kadeem Vargas excluding any time spent in the performance of separately billed services. documented in this encounter Nursing Notes * Charline Romo LPN - 01/08/2024 5:38 PM EDT Chief Complaint Patient presents with Acute Pt c/o headache and sinus issues. X 1 week. Flonase OTC with some relief. documented in this encounter Plan of Treatment Health Maintenance Due Date Last Done Comments HIV Screening 12/19/2010 Hepatitis C Screening 12/19/2013 DTap/Tdap Vaccines (7 - Td or Tdap) 02/17/2016 02/16/2006, 02/12/2001, 08/13/1997, Additional history exists Pneumococcal Vaccine: Pediatrics (0 to 5 Years) and At-Risk Patients (6 to 64 Years) (2 of 2 - PCV) 11/18/2016 [...] as of this encounter Visit Diagnoses Diagnosis Upper respiratory tract infection, unspecified type- Primary Acute serous otitis media, recurrence not specified, unspecified laterality Pain, dental Unspecified disorder of the teeth and supporting structures documented in this encounter Care Teams Clinical Material Handler Relationship Specialty Start Date End Date Andrea Romero CRNP [address] [place] [address] PCP - General Nurse Practitioner 01/01/24 documented as of this encounter"
--- OUTSIDE RECORDS SUMMARY | 2024-06-07 16:15 | External Medical Summary | Summary of Care ---
Author Name Unknown Organization [facility] Address [address] [place] [address] Phone [phone] Care Team Providers Care Materials Intern Name Role Phone Andrea Romero Primary Care Provider [phone] Reason for Visit * Reason Comments Emergency Department Follow-Up [facility] 5 Encounter Details Date Type Department Care Team ([facility] st Contact Info) Description 04/18/2024 11:00 AM EST Office Visit [facility] [address] [place] [address] Andrea Romero CRNP [address] [place] [id number] Nasal congestion* Allergies No known active allergiesdocumented as of this encounter (statuses as of 04/18/2024) Medications Albuterol Sulfate HFA 108 (90 Base) MCG/ACT Inhalation Aerosol SolutionIndicat ions:Acute cough Inhale 2 Puffs by mouth every 6 hours as needed for Wheezing. 18 g 01/17/20 23 Active Additional Information Patient not taking.Reported on 03/29/2024 Benzonatate 100 MG Oral Capsule (Tesdejuan Egan)Indicati ons:Upper respiratory tract infection, unspecified type Take 1 Capsule by mouth 3 times a day as needed for Cough. 20 Capsule 1 01/08/20 24 Active Cyclobenzaprine HCl 10 MG Oral Tablet (Flexeril) Take 1 Tablet by mouth 3 times a day as needed for Pain. 30 Tablet 02/12/20 24 Active Albuterol Sulfate HFA 108 (90 Base) MCG/ACT Inhalation Aerosol Solution Inhale 2 Puffs by mouth every 4 hours as needed for Cough. 18 g 04/12/19 25 Active Amoxicillin 500 MG Oral Capsule (Amoxil)Indicat ions:Acute serous otitis media, recurrence not specified, unspecified laterality Take 1 Capsule by mouth in the morning and 1 Capsule before bedtime. Do all this for 10 days. 20 Capsule 01/08/20 24 025 Discontinued Amoxicillin-Pot Clavulanate 875-125 MG Oral Tablet (Augmentin)Deanna cations:Acute bilateral otitis media Take 1 Tablet by mouth in the morning and 1 Tablet before bedtime. Do all this for 10 days. 20 Tablet 03/29/19 25 025 Discontinued documented as of this encounter (statuses as of 04/18/2024) Active Problems Problem Noted Date Diagnosed Date Tobacco use disorder 05/10/2015 Respiratory symptoms 02/16/2006 Overview (12/12/2018): ICD-10 update of inactive term Chronic sinusitis 07/07/2005 Allergic rhinitis 07/07/2005 Undiagnosed cardiac murmurs documented as of this encounter (statuses as of 04/18/2024) Resolved Problems Problem Noted Date Diagnosed Date Resolved Date Paranoia 08/31/2021 07/27/2023 Obesity, pediatric, BMI 95th to 98th percentile for age 0306/03/2009 02/23/2022 Overview (06/03/2009): Per Obesity Taxonomy OBESITY, UNSPECIFIED 02/16/2006 010 Overview (06/03/2009): Per Obesity Taxonomy ADVANCE DIRECTIVE INFORMATION 01/05/2005 01/14/2024 Overview (01/05/2005): Not applicable (under age of 18) documented as of this encounter (statuses as of 04/18/2024) Immunizations Name Administration Dates Next Due HEP [...] Sign Reading Time Taken Comments Blood Pressure 118/72 04/18/2024 11:02 AM EST Pulse 94 04/18/2024 11:02 AM EST Temperature 37.1 °C (98.8 °F) 04/18/2024 11:[address] Respiratory Rate 18 04/18/2024 11:02 AM EST Oxygen Saturation 98% 04/18/2024 11:02 AM EST Inhaled Oxygen Concentration - - Weight 85 kg (187 lb 8 oz) 04/18/2024 11:[address] Height 167.6 cm (5' 5.98") 04/18/2024 11:[address] Body Mass Index 30.28 04/18/2024 11:02 AM EST documented in this encounter Progress Notes * Andrea Romero CRNP - 04/18/2024 11:05 AM EST Images from the original note were not included. History of Present Illness Chief Complaint Patient presents with Emergency Department Follow-Up [facility] 04/12/24 Brief Clinical History Mr. Vargas is a 28 year old male last seen in [facility] on 02/14/2024 by Andrea Romero He has a h/o the following chronic conditions indicated on the problem list: Chronic Conditions None The patient presents today for an ER discharge follow up. On 03/29/2024 the patient was diagnosed with acute bilateral otitis media and prescribed Augmentin twice a day for 10 days. He did not take it as prescribed and discontinued it prior to finishing thedose. States he still has a few tablets at home. Discouraged him from finishing it since he did nottake it as prescribed On 04/12/2024 he was seen at the emergency department in [place] and diagnosed with influenza A. He still has some residual symptoms of cough and congestion but states his symptoms are improving. Reviewed last labs Latest Reference Range & Units 04/12/24 03:30 SARS-CoV-2 (COVID-19) Result Negative Negative Influenza A PCR Result Negative Positive ! Influenza B PCR Result Negative Negative INFLUENZA A/B RSV SARS-COV2,PCR Rpt ! RSV PCR Result Negative Negative Review of Systems Constitutional: Negative. Negative for chills and fever. HENT: Positive for congestion and rhinorrhea. Eyes: Negative. Respiratory: Positive for cough. Negative for shortness of breath and wheezing. Cardiovascular: Negative. Negative for chest pain and palpitations. Gastrointestinal: Negative. Negative for abdominal distention, nausea and vomiting. Genitourinary: Negative. Musculoskeletal: Negative. Skin: Negative. Neurological: Positive for headaches. Physical Exam BP 118/72 | Pulse 94 | Temp 98.8 °F (37.1 °C) (Tympanic) | Resp 18 | Ht 5' 5.98" (1.676 m) | Wt 187 lb 8 oz (85 kg) | SpO2 98% | BMI 30.28 kg/m² | BSA 1.99 m² Physical Exam Vitals reviewed. Constitutional: Appearance: Normal appearance. He is normal weight. HENT: Head: Normocephalic. Right Ear: Tympanic membrane, ear canal and external ear normal. Left Ear: Tympanic membrane, ear canal and external ear normal. Ears: Comments: Mild redness to ear canals. Nose: Congestion and rhinorrhea present. Mouth/Throat: Pharynx: Oropharynx is clear. Eyes: Conjunctiva/sclera: Conjunctivae normal. Pupils: Pupils are equal, round, and reactive to light. Cardiovascular: Rate and Rhythm: Normal rate and regular rhythm. Pulses: Normal pulses. Heart sounds: Normal heart sounds. Pulmonary: Effort: Pulmonary effort is normal. Breath sounds: Normal breath sounds. Abdominal: General: Bowel sounds are normal. Palpations: Abdomen is soft. Skin: General: Skin is warm and dry. Capillary Refill: Capillary refill takes less than 2 seconds. Neurological: Mental Status: He is alert and oriented to person, place, and time. Assessment and Plan Nasal congestion (Primary) - Can use honey with tea and cough lozenges for cough prn. Salt water gargles for sore throat. Guaifenesin and flonase for congestion. Excellent hydration. Ibuprofen and tylenol for fever and pain. Wrap-Up Pt is to follow up as needed. Pt is to notify us of any concerning or worsening symptoms. Pt expresses understanding and satisfaction with plan. Time: I spent a total of 10-19 minutes (exact time 18 mins) on the date of service in preparation, delivery, and documentation of the care provided to Kadeem Vargas excluding any time spent in the performance of separately billed services. [place] documented in this encounter Nursing Notes * Anita Araujo CCMA - 04/18/2024 10:59 AM EST Chief Complaint Patient presents with Emergency Department Follow-Up [facility] 04/12/24 Pt is here today for ED f/u. Pt went in due to cold sxs. He was on abx for ear infection but wasn'ttaking how prescribed. Pt d/c use of meds. Has not had to use inhaler either. Pt says he feels a little better, ear is still hurting and phlegm is yellow. Was using flonase, but d/c due to nose bleeds. Patient has been verbally educated on the need or importance of Flu Vaccine, Pneumococcal Vaccine, and Tdap Vaccine and has declined topic(s). documented in this encounter Plan of Treatment [...] as of this encounter Visit Diagnoses Diagnosis Nasal congestion- Primary Other diseases of nasal cavity and sinuses documented in this encounter Additional Health Concerns Infection Onset Date Last Indicated Resolved Time Influenza (seasonal) 04/12/2024 04/12/2024 documented as of this encounter Care Teams Materials Intern Relationship Specialty Start Date End Date Andrea Romero CRNP [address] [place] [address] [place] [id number] PCP - General Nurse Practitioner 01/01/24 documented as of this encounter
--- OUTSIDE RECORDS SUMMARY | 2024-06-07 16:15 | External Medical Summary | Summary of Care ---
Author Name Unknown Organization [facility] [address] [place] [address] Phone [phone] Care Team Providers Care Hedis Specialist Name Role Phone Andrea Romero Primary Care Provider [phone] Reason for Visit * Reason Comments Back Pain * Auth/Cert Specialty Diagnoses / Procedures Referred By Lindsay t Referred To Contact [facility] [address] [place] [address] Phone: tel:[phone] [facility] Emergency Department ([facility]) [address] [place] [address] Phone: tel: fax: Referral ID Status Reason Start Date Expiration Date Visits Re quested Visits Authorized [id number] Encounter Details Date Type Department Care Team ([facility] st Contact Info) Description 02/12/2024 6:07 PM EST - 02/12/2024 10:03 PM EST Emergency [facility] Emergency Department ([facility]) [address] [place] [address] Christopher Schwarz MD [address], [place] [id number] Acute low back pain, unspecified back pain laterality, unspecified whether sciatica present (Primary Dx); Bilateral leg pain Discharge Disposition: Home - Self Care Allergies No known active allergiesdocumented as of this encounter (statuses as of 02/13/2024) Medications Tereseidone HCl 60 MG Oral Tablet (Latuda) TAKE 1 TABLET BY MOUTH ONCE A DAY AFTER A MEAL 07/24/19 Active Fluticasone Propionate 50 MCG/ACT Nasal Suspension (Flonase)Indicatio ns:Acute rhinosinusitis Administer 2 Sprays into each nostril in the morning. 18 mL 08/02/19 Active Additional Information Patient not taking.Reported on 07/27/2023 Albuterol Sulfate HFA 108 (90 Base) MCG/ACT Inhalation Aerosol SolutionIndication s:Acute cough Inhale 2 Puffs by mouth every 6 hours as needed for Wheezing. 18 g 01/17/20 Active Additional Information Patient not taking.Reported on 07/27/2023 Azithromycin 250 MG Oral Tablet (Zithromax Z-Benton)Indications: Bronchitis, complicated Take two tablets by mouth on first day, then 1 tablet daily until gone 6 Tablet 11/01/2023 11:51 AM EDT 11/01/19 Active Additional Information Patient not taking.Reported on 01/08/2024 Benzonatate 100 MG Oral Capsule (Tessalon Perles)Indications :Upper respiratory tract infection, unspecified type Take 1 Capsule by mouth 3 times a day as needed for Cough. 20 Capsule 1 01/08/20 Active Chlorhexidine Gluconate 0.12 % Mouth/Throat Solution (Periogard)Indicat ions:Pain, dental Swish and spit 15 mL in the morning and 15 mL before bedtime. 473 mL 01/08/20 Active Cyclobenzaprine HCl 10 MG Oral Tablet (Flexeril) Take 1 Tablet by mouth 3 times a day as needed for Pain. 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 0306/03/2009 02/23/2022 Overview (06/03/2009): Per Obesity Taxonomy OBESITY, UNSPECIFIED 02/16/2006 010 Overview (06/03/2009): Per Obesity Taxonomy ADVANCE DIRECTIVE INFORMATION 01/05/2005 01/14/2024 Overview (01/05/2005): Not applicable (under age of 18) documented as of this encounter (statuses as of 02/13/2024) Immunizations Name Administration Dates Next Due HEP [...] Date Smoking Tobacco: Every Day Cigarettes 1 8.6 Started: 06/23/2015 Smokeless Tobacco: Never Alcohol Use [...] Sign Reading Time Taken Comments Blood Pressure 102/73 02/12/2024 9:00 PM EST Pulse 70 02/12/2024 9:00 PM EST Temperature 36.8 °C (98.2 °F) 02/12/2024 6:01 PM ES T Respiratory Rate 20 02/12/2024 9:00 PM EST Oxygen Saturation 100% 02/12/2024 6:01 PM EST Inhaled Oxygen Concentration - - Weight 81.6 kg (180 lb) 02/12/2024 6:01 PM EST Height 167.6 cm (5' 6") 02/12/2024 6:01 PM EST Body Mass Index 29.05 02/12/2024 6:01 PM EST documented in this encounter Discharge Instructions * Discharge Instructions* Christopher Schwarz MD - 02/12/2024 9:49 PM EST The ER doctor thinks that the pain in your legs is probably from your back. No driving, heavy lifting, using machines or alcohol if taking Flexeril/cyclobenzaprine To your medical provider this week to discuss referral to physical therapy, you may need MRI of your back if physical therapy fails. Back to the ER if any warning signs such as trouble controlling your urination or bowel movements, or if you have any symmetric problems in your legs or lower body, such as both sides being numb, both sides tingling, both sides having pain, or especially if both sides are weak at the same time, you need to come back to the ER right away to get rechecked to see if you need anything done sooner. documented in this encounter ED Notes * Christopher Schwarz MD - 02/12/2024 6:15 PM EST HISTORY OF PRESENT ILLNESS Kadeem Vargas is a 28 year old male who presents to the ED for evaluation of Back Pain. The patient was seen at 02/12/241814. Pt says that he is having L lower back pain that started today while he was at work. Says that he turned around quick and heard and felt a crack in his back. Says that he is now having increased pain. Denies pain/tingling in BLE. Denies taking anything for pain. Denies loss of bowel or bladder. 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 No difficulty with control of urination notes difficulty with control of bowel movements The pain is more of a tightness feeling on both legs to a degree variable in intensity. Back Pain Review of Systems Musculoskeletal: Positive for back pain. The patient's allergies, past history, and medications were reviewed. PHYSICAL EXAM Initial Vitals (see all): BP 125/69 | Pulse 93 | Resp 20 | Temp 98.2 | O2 100 %, Room Air, None | Weight 81.65 kg | Height 167.6 cm | BMI 29.05 kg/m2 Initial Pain Assessment (see all): 8 (severe pain)/10, Aching, location: L lower back ([facility] Adult Scale 0-10) Physical Exam Vitals and nursing note reviewed. HENT: Head: Normocephalic. Right Ear: External ear normal. Left Ear: External ear normal. Mouth/Throat: Pharynx: Oropharynx is clear. Eyes: Extraocular Movements: Extraocular movements intact. Neck: Trachea: No tracheal deviation. Cardiovascular: Rate and Rhythm: Normal rate. Pulmonary: Effort: Pulmonary effort is normal. Breath sounds: Normal breath sounds. Abdominal: Palpations: Abdomen is soft. Tenderness: There is no abdominal tenderness. Musculoskeletal: General: No deformity. Comments: Tenderness L4-L5 S1 midline and bilateral paraspinal muscles at that level. Skin: Findings: No rash. Neurological: Mental Status: He is alert. GCS: GCS eye subscore is 4. GCS verbal subscore is 5. GCS motor subscore is 6. Sensory: No sensory deficit. Motor: No weakness. Deep Tendon Reflexes: Reflex Scores: Patellar reflexes are 2+ on the right side and 2+ on the left side. Achilles reflexes are 2+ on the right side and 2+ on the left side. Comments: GCS 15 Normal motor Normal sensory Normal reflexes bilateral patella bilateral Achilles Psychiatric: Behavior: Behavior is cooperative. PROCEDURES AND TREATMENTS ED Orders | ED Results MEDICAL DECISION MAKING Nursing notes and vital signs were reviewed. ED Course as of 02/12/242342Feb 12, [id number] I reviewed EKG which was done because patient had a nonspecific mentioned of heart murmur in his past records which he said he was unaware of, I do not hear any heart murmur when I did my own auscultation, EKG done out of an abundance of caution regarding status of heart prior to starting cyclobenzaprine [RO] 2120 Lumbar x-ray IMPRESSION: No acute findings. [RO] 212 Patient reports he is feeling a lot better [RO] ED Course User Index [RO] Christopher Schwarz MD Young adult male with nontraumatic acute onset lumbar pain, having sensations in his legs however neurologic function below the waist is intact including control of urination and control bowel movements. No evidence of spinal cord compression at this time. He did get adequate control symptoms with Flexeril which is potentially going to give him over confidence and the thought to lift more than heshould, we did speak at length at bedside about the importance of not lifting heavy weights after Flexeril and preferably only taking Flexeril prior to resting. He will also pursue physical therapy order from his primary care. Unlikely to be pyelonephritis or appendicitis or epidural abscess or spine fracture Amount and/or Complexity of Data Reviewed Radiology: ordered. ECG/medicine tests: ordered. Risk OTC drugs. Prescription drug management. Clinical Impressions Acute low back pain, unspecified back pain laterality, unspecified whether sciatica present Bilateral leg pain Disposition Discharged. The patient's condition at disposition was: stable. Discharge Medications Disp Refills Start End Cyclobenzaprine HCl 10 MG Oral Tablet (Flexeril) 30 Tablet 0 02/12/2024 -- Sig - Route: Take 1 Tablet by mouth 3 times a day as needed for Pain. - Oral Class: ePrescribing Renewals Renewal requests to authorizing provider (Christopher Schwarz MD) <b>prohibited</b> Christopher Schwarz * Georgia Jones RN - 02/12/2024 6:02 PM EST Pt says that he is having L lower back pain that started today while he was at work. Says that he turned around quick and heard and felt a crack in his back. Says that he is now having increased pain. Denies pain/tingling in BLE. Denies taking anything for pain. Denies loss of bowel or bladder. Didambulate into triage room without difficulty. documented in this encounter Miscellaneous Notes * Pt Handout (on AVS) - Christopher Schwarz MD - 02/12/2024 9:50 PM EST Images from the original note were not included. [id number] General Neck and Back Pain Both neck and back pain are usually caused by injury to the muscles or ligaments of the spine. Sometimes the disks that separate each bone of the spine may cause pain by pressing on a nearby nerve. Back and neck pain may appear after a sudden twisting or bending force (such as in a car accident), or sometimes after a simple awkward movement. In either case, muscle spasm is often present and adds to the pain. Acute neck and back pain usually gets better in 1 to 2 weeks. Pain related to disk disease, arthritis in the spinal joints, or narrowing of the spinal canal (spinal stenosis) can become chronic and last for months or years. Back and neck pain are common problems. Most people feel better in 1 or 2 weeks, and most of the rest in 1 to 2 months. Most people can stay active. People have and describe pain differently. · Pain can be sharp, stabbing, shooting, aching, cramping, or burning. · Movement, standing, bending, lifting, sitting, or walking may worsen the pain. · Pain can be limited to 1 spot or area, or it can be more generalized. · Pain can spread upward, downward, to the front, or go down your arms or legs. · Muscle spasm may occur. Most of the time, mechanical problems with the muscles or spine cause the pain. It's usually causedby an injury, whether known or not, to the muscles or ligaments. Pain without an injury is not common. But it can sometimes be caused by a health problem such as kidney stones or an infection. Pain is usually related to physical activity such as sports, exercise, work, or normal activity. Sometimesit can occur without an identifiable cause. This can happen simply by stretching or moving wrong, without noting pain at the time. Other causes include: · Overexertion, lifting, pushing, pulling incorrectly or too aggressively. · Sudden twisting, bending or stretching from an accident (car or fall), or accidental movement. · Poor posture · Poor conditioning, lack of regular exercise · Spinal disc disease or arthritis · Stress · , or illness like appendicitis, bladder or kidney infection, pelvic infections Home care · For neck pain: Use a comfortable pillow that supports the head and keeps the spine in a neutral position. The position of the head should not be tilted forward or backward. · When in bed, try to find a comfortable position. A firm mattress is best. Try lying flat on yourback with pillows under your knees. You can also try lying on your side with your knees bent up toward your chest and a pillow between your knees. · At first, don't try to stretch out the sore spots. If there's a strain, it's not like the good soreness you get after exercising without an injury. In this case, stretching may make it worse. · Don't sit for long periods, as in long car rides or other travel. This puts more stress on the low back than standing or walking. · During the first 24 to 72 hours after an injury, apply an ice pack to the painful area for 20 minutes and then remove it for 20 minutes over a period of 60 to 90 minutes or several times a day. · You can alternate ice and heat therapies. Talk with your healthcare provider about the best treatment for your back or neck pain. As a safety measure, don't use a heating pad at bedtime. Sleeping with a heating pad can lead to skin cedeno or tissue damage. · Therapeutic massage can help relax the back and neck muscles without stretching them. · Be aware of safe lifting methods. Don't lift anything over 15 pounds until all the pain is gone. Medicines Talk to your healthcare provider before using medicine, especially if you have other health problems or are taking other medicines. · You may use wzwy-nue-jrzcptl medicine to control pain, unless another pain medicine was prescribed. Talk with your provider first if you have chronic conditions like diabetes, liver or kidney disease, stomach ulcers, gastrointestinal bleeding, or are taking blood thinner medicines. · Be careful if you're given pain medicines, narcotics, or medicine for muscle spasm. They can cause drowsiness. It can affect your coordination, reflexes, and judgment. Don't drive or operate heavymachiSpotMe Fitnessy. Follow-up care Follow up with your healthcare provider as advised. You may need physical therapy or more tests. If X-rays were taken, you'll be told of any new findings that may affect your care. Call 911 Call 911 if any of these occur: · Trouble breathing · Confusion · Very drowsy or trouble waking up · Fainting or loss of consciousness · Very fast or very slow heart rate · Loss of bowel or bladder control When to get medical advice Call your healthcare provider right away if any of these occur: · Pain gets worse or spreads into your arms or legs · Weakness, numbness, or pain in 1 or both arms or legs · You have changes in bowel or bladder function · Numbness in the groin area · Trouble walking · Fever of 100.4ºF (38ºC) or higher, or as advised by your provider Last Reviewed Date: 2021 00:00:00 © [employer]. All rights reserved. This information is not intended as a substitute for professional medical care. Always follow your healthcare professional's instructions. * ED Sheet Metal Engineer Note - Shea Cao RN - 02/12/2024 6:49 PM EST Patient presents to the ED with back pain. Patient states that he is having constant lower back pain that started while he was working. Patient reports that he was twisting and moving something at work when he felt a "pop". Patient states that pain got worse this evening. Patient states that movingand twisting makes pain worse. Patient denies pain radiating anywhere, any numbness/tingling, loss of bowel or bladder, or any trouble ambulating. Patient was able to ambulate from room to bathroom with a steady gait. Upon assessment patient has unlabored breathing and equal respirations. Patient is Aox4. Patient has +sensation, +5ROM, and +pulses in all extremities. EKG done at bedside reading NSR. Patient states that he has a ride home. documented in this encounter Plan of Treatment Health Maintenance Due Date Last Done Comments HIV Screening 12/19/2010 Hepatitis C Screening 12/19/2013 DTap/Tdap Vaccines (7 - Td or Tdap) 02/17/2016 02/16/2006, 02/12/2001, 08/13/1997, Additional history exists Pneumococcal Vaccine: Pediatrics (0 to 5 Years) and At-Risk Patients (6 to 64 Years) (2 of 2 - PCV) 11/18/2016 11/19/2015 COVID-19 Vaccine ( - 2023- season) 2023 Influenza Vaccine (FLU [...] Procedure Name Priority Date/Time Associated Diagnosis Comments XR L SPINE AP AND LATERAL STAT 02/12/2024 6:55 PM EST documented in this encounter Results * XR L SPINE 2-3 VIEWS (02/12/2024 6:55 PM EST) Anatomical Region Laterality Modality Vertebra, Lspine Digital Radiogr aphy 02/12/2024 6:48 PM EST Impressions 02/12/2024 8:27 PM EST IMPRESSION: No acute findings. THIS DOCUMENT HAS BEEN ELECTRONICALLY SIGNED BY JAMEEL BROCK MD Narrative 02/12/2024 8:27 PM EST PROCEDURE INFORMATION: Exam: XR Lumbosacral Spine Exam date and time: 02/12/2024 6:48 PM Age: 28 years old Clinical indication: Low back pain TECHNIQUE: Imaging protocol: Radiologic exam of the lumbosacral spine. Views: 2 or 3 views. COMPARISON: No relevant prior studies available. FINDINGS: Bones/joints: No acute fracture. Normal vertebral body heights and alignment. Disc spaces are maintained. Soft tissues: Unremarkable. Procedure Note Jameel Brock MD - 02/12/2024 PROCEDURE INFORMATION: Exam: XR Lumbosacral Spine Exam date and time: 02/12/2024 6:48 PM Age: 28 years old Clinical indication: Low back pain TECHNIQUE: Imaging protocol: Radiologic exam of the lumbosacral spine. Views: 2 or 3 views. COMPARISON: No relevant prior studies available. FINDINGS: Bones/joints: No acute fracture. Normal vertebral body heights andalignment. Disc spaces are maintained. Soft tissues: Unremarkable. IMPRESSION IMPRESSION: No acute findings. THIS DOCUMENT HAS BEEN ELECTRONICALLY SIGNED BY JAMEEL BROCK MD Christopher Schwarz MD RADIOLOGY ([facility]) Final Result documented in this encounter Visit Diagnoses Diagnosis Acute low back pain, unspecified back pain laterality, unspecified whether sciatica present- Primary Bilateral leg pain Pain in limb documented in this encounter Administered Medications Inactive Administered Medications - up to 3 most recent administrations Medication Order MAR Action Action Date Dose Rate Site Acetaminophen (Tylenol) tab 650 mg 650 mg, Oral, ONCE, On Sun02/12/24 at 1914, For 1 dose, Maximum of 4 grams (4000 mg) per day. Given 02/12/2024 6:43 PM EST 650 mg cyclobenzaprine (Flexeril) tab 10 mg 10 mg, Oral, ONCE, On Sun02/12/24 at 1914, For 1 dose Given 02/12/2024 6:43 PM EST 10 mg oxyCODONE (Oxy IR) tab 5 mg 5 mg, Oral, ONCE, On Sun02/12/24 at 1914, For 1 dose Given 02/12/2024 6:45 PM EST 5 mg documented in this encounter Active and Recently Administered Medications Times are shown in EST. Scheduled Medication Order 02/10/2024 02/11/2024 02/12/2024 Acetaminophen (Tylenol) tab 650 mg (COMPLETED) 650 mg, Oral, ONCE, On Sun02/12/24 at 1914, For 1 dose, Maximum of 4 grams (4000 mg) per day. 1842 (Given - Provid er: Shea Cao RN) cyclobenzaprine (Flexeril) tab 10 mg (COMPLETED) 10 mg, Oral, ONCE, On Sun02/12/24 at 1914, For 1 dose 1842 (Given - Provid er: Shea Cao RN) oxyCODONE (Oxy IR) tab 5 mg (COMPLETED) 5 mg, Oral, ONCE, On Sun02/12/24 at 1914, For 1 dose 1845 (Given - Provid er: Shea Cao RN) documented in this encounter Care Teams Hedis Specialist Relationship Specialty Start Date End Date Andrea Romero CRNP [address] [place] [address] PCP - General Nurse Practitioner 01/01/24 documented as of this encounter
--- OUTSIDE RECORDS SUMMARY | 2024-06-07 16:15 | External Medical Summary ---
Author Name Unknown Address Unknown Organization K1F:[facility] - [address] [place] [id number] Laboratory Report Ordering Provider Test Date Status ANA CRISTINA CALLAHAN 04/12/2024 03:30:53 Final Observation Date Value Abnormality Reference (Units ) Status SARS Coronavirus 2 04/12/2024 03:30:53 Negative N egative Final No SARS-CoV2 Coronavirus RNA detected by PCR (amplified probe).
This express test was developed and its performance characteristics determined by [employer] [facility]. It has not been cleared or approved by the U.S. Food and Drug Administration (FDA). FDA does not require this test to go thru premarket FDA review. This test is used for clinical purposes. It should not be regarded as investigational or for research. This laboratory is certified under the Clinical Laboratory Improvement Amendments (CLIA) as qualified to perform high complexity clinical laboratory testing.

This test is a nucleic acid amplification test (NAAT), a reverse transcriptase polymerase chain reaction (RT-PCR) test, or a Centers for Disease Control-acceptable equivalent. The test is performed in a high complexity Clinical Laboratory Improvement Amendments-(CLIA) certified laboratory. The test is acceptable for SARS-CoV-2 diagnosis, surveillance, and travel within the [place] and to most countries. Please check with local testing authorities about requirements before travel.

The validation of bronchial specimens, tracheal aspirates, and sputum for this assay was developed and performance characteristics determined by [facility]. The validation of alternate specimen types has not been cleared or approved by the U.S. Food and Drug Administration (FDA). It has been determined that such clearance is not necessary. Influenza virus A RNA [Prese nce] in Specimen by [facility] with probe detection 04/12/2024 03:30:53 Positive Abnormal Negative Final Influenza A RNA detected by PCR (amplified probe). Test results reported to [facility]. Influenza virus B RNA [Prese nce] in Specimen by [facility] with probe detection 04/12/2024 03:30:53 Negative Negative Final No Influenza B RNA detected by PCR (amplified probe) Respiratory syncytial virus RNA [Identifier] in Specimen by [facility] with probe detection 04/12/2024 03:30:53 Negative Negative Final No Respiratory Syncytial Vir us RNA detected by PCR (amplified probe) Performing Location [facility] [address] [place] [address]
--- OUTSIDE RECORDS SUMMARY | 2024-06-07 16:15 | External Medical Summary | Summary of Care ---
Author Name Unknown Organization [facility] [address] [place] [address] Phone [phone] Care Team Providers Care Waste Oil Pumper Name Role Phone Andrea Romero Primary Care Provider [phone] Reason for Visit * Reason Comments Cold Symptoms * Auth/Cert Specialty Diagnoses / Procedures Referred By Lindsay t Referred To Contact [facility] [address] [place] [address] Phone: [phone] [facility] Emergency Department ([facility]) [address] [place] [address] Phone: tel: fax: Referral ID Status Reason Start Date Expiration Date Visits Re quested Visits Authorized [id number] Encounter Details Date Type Department Care Team ([facility] st Contact Info) Description 04/12/2024 2:27 AM EST - 04/12/2024 4:48 AM EST Emergency [facility] Emergency Department ([facility]) [address] [place] [address] [phone] Christopher Schwarz MD [address], [place] [id number] Influenza A (Primary Dx) Discharge Disposition: Home - Self Care Allergies No known active allergiesdocumented as of this encounter (statuses as of 04/12/2024) Medications Albuterol Sulfate HFA 108 (90 Base) [...] as of this encounter (statuses as of 04/12/2024) Active Problems Problem Noted Date Diagnosed Date Tobacco use disorder 05/10/2015 Respiratory symptoms 02/16/2006 Overview (12/12/2018): ICD-10 update of inactive term Chronic sinusitis 07/07/2005 Allergic rhinitis 07/07/2005 Undiagnosed cardiac murmurs documented as of this encounter (statuses as of 04/12/2024) Resolved Problems Problem Noted Date Diagnosed Date Resolved Date Paranoia 08/31/2021 07/27/2023 Obesity, pediatric, BMI 95th to 98th percentile for age 0306/03/2009 02/23/2022 Overview (06/03/2009): Per Obesity Taxonomy OBESITY, UNSPECIFIED 02/16/2006 010 Overview (06/03/2009): Per Obesity Taxonomy ADVANCE DIRECTIVE INFORMATION 01/05/2005 01/14/2024 Overview (01/05/2005): Not applicable (under age of 18) documented as of this encounter (statuses as of 04/12/2024) Immunizations Name Administration Dates Next Due HEP [...] Sign Reading Time Taken Comments Blood Pressure 114/69 04/12/2024 4:45 AM EST Pulse 95 04/12/2024 4:45 AM EST Temperature 36.6 °C (97.8 °F) 04/12/2024 4:45 AM ES T Respiratory Rate 20 04/12/2024 4:45 AM EST Oxygen Saturation 94% 04/12/2024 4:45 AM EST Inhaled Oxygen Concentration - - Weight 88.1 kg (194 lb 4.8 oz) 04/12/2024 2:31 A M EST Height - - Body Mass Index 31.36 03/29/2024 4:42 PM EST documented in this encounter Discharge Instructions * Discharge Instructions* Christopher Schwarz MD - 04/12/2024 4:36 AM EST Tylenol as needed as directed on package, this seems to be helping your symptoms. Tylenol no more than 4000 mg in any 24 hour period from all sources combined. 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 Pt currently on abx for bilateral ear infx. Pt reports using tylenol and mucinex DM. Pt reports fever 102.5f earlier today around 1999. documented in this encounter Miscellaneous Notes * ED Mine Captain Note - Cesar Paez RN - 04/12/2024 4:48 AM EST Pt verbalized discharge instructions. Pt ambulated out of ED with steady gait. FLACC 0. * Pt Handout (on AVS) - Christopher Schwarz MD - 04/12/2024 4:37 AM EST Images from the original note were not included. [id number] Influenza (Adult) Updated for the 5205-5741 flu season Influenza is also called the flu. It's a viral illness that affects the air passages of your nose, sinuses, throat, and lungs. It's more serious than the common cold. The flu can easily be passed from one person to another. It is very contagious. It may be spread through the air by coughing and sneezing. It can also be spread by touching the sick person and then touching your own eyes, nose, or mouth. The flu starts 1 to 4 days after you are exposed to the flu virus. Symptoms usually last for about 3 days, but it can take 1 to 2 weeks to fully recover. You usually don?t need to take antibiotics unless you are at high risk for or have a complication from a bacterial infection. This might be an ear or sinus infection or pneumonia. Flu symptoms may be mild or severe. They can include extreme tiredness (wanting to stay in bed all day), chills, fevers, muscle aches, soreness with eye movement, headache, and a dry, hacking cough. Antiviral medicine for the flu is available by prescription. If you start taking it within 48 hours, it may help reduce how long your symptoms last and how severe they are. Your provider may do a test to find out if you have influenza and which strain you have. Home care Follow these guidelines when caring for yourself at home: · Stay away from cigarette smoke, whether it's yours or other people?s. · Acetaminophen or ibuprofen will help ease your fever, muscle aches, and headache. Don?t give aspirin to anyone younger than 18 who has the flu. This can cause a serious condition called Gela syndrome. · Nausea, loose stools, and loss of appetite are common with the flu. Eat light meals. Drink 6 to 8 glasses of liquids every day. Good choices are water, sport drinks, soft drinks without caffeine, juices, tea, and soup. Extra fluids will also help loosen secretions in your nose and lungs. · Zvyz-hiy-pabipfl cold medicines will not make the flu go away faster. But the medicines may helpwith coughing, sore throat, and congestion in your nose and sinuses. Don?t use a decongestant if you have high blood pressure. · Stay home until your fever has been gone for at least 24 hours without using medicine to reduce fever. · Drink enough fluids so that you do not become dehydrated. · Take warm, steamy showers to help soothe your cough. · If you have a sore throat, gargling with warm salty water, sucking on an ice cube, drinking hot water with honey and freshly squeezed lemon juice can help. Follow-up care Follow up with your healthcare provider, or as advised, if you're not getting better over the next week. If you're age 50 or older, talk with your provider about getting a pneumococcal vaccine. You shouldalso get vaccinated against pneumococcal pneumoniae at other ages if you have a weak immune system,chronic asthma, COPD (chronic obstructive pulmonary disorder), or certain other conditions. With very few exceptions, all adults should get a flu vaccine every fall. November and December are generally good times to get vaccinated. Ask your provider about this. When to get medical advice Call your healthcare provider right away if you have the flu and any of these occur: · Cough with lots of colored mucus (sputum) or blood in your mucus · Chest pain, shortness of breath, wheezing, or trouble breathing · Severe headache, or face, neck, or ear pain · New rash with fever · Fever of 100.4°F (38°C) or higher, or as advised by your provider · Confusion, behavior change, or seizure · Severe weakness or dizziness · You get a new fever or cough after getting better for a few days Also call your provider if you have flu symptoms and have a weakened immune system or are taking medicines that can weaken your immune system. These include steroids and certain anti-inflammatory medicines. Last Reviewed Date: 2023 00:00:00 © 9138-8612 [employer]. All rights reserved. This information is not intended as a substitute for professional medical care. Always follow your healthcare professional's instructions. * ED Mine Captain Note - Cesar Paez RN - 04/12/2024 2:43 AM EST Pt reports symptoms started with Ear infx last week. Pt reports 2-3 days left on amoxicillin regimen. Pt denies n/v/d/c, abd pain, urinary or bowel issues. 7/10 H/A, 2/10 chest soreness from coughing documented in this encounter Plan of Treatment Upcoming Encounters Date Type Department Care Team (Late st Contact Info) Description 04/14/2024 4:00 PM EST Office Visit [facility] [address] [place] [phone] Andrea Romero CRNP [address] [place] [phone] Health Maintenance Due Date Last Done Comments HIV Screening 12/19/2010 Hepatitis C Screening 12/19/2013 DTap/Tdap Vaccines (7 - Td or Tdap) 02/17/2016 02/16/2006, 02/12/2001, 08/13/1997, Additional history exists Pneumococcal Vaccine: Pediatrics (0 to 5 Years) and At-Risk Patients (6 to 18 Years and 19+ Years) (2 of 2 - PCV) 11/18/2016 11/19/2015 COVID-19 Vaccine ( season) 2023 Influenza Vaccine (FLU shot) (#1) [...] Name Priority Date/Time Associated Diagnosis Comments XR CHEST 1 VIEW STAT 04/12/2024 3:49 AM EST INFLUENZA A/B RSV SARS-COV2,PCR STAT 04/12/2024 3:30 AM EST documented in this encounter Results * XR CHEST 1 VIEW (04/12/2024 3:49 AM EST) Anatomical Region Laterality Modality Chest Digital Radiogra phy 04/12/2024 3:44 AM EST Impressions 04/12/2024 6:18 AM EST IMPRESSION: No acute findings. THIS DOCUMENT HAS BEEN ELECTRONICALLY SIGNED BY ADRIAN NEWTON MD Narrative 04/12/2024 6:18 AM EST PROCEDURE INFORMATION: Exam: XR Chest Exam date and time: 04/12/2024 3:44 AM Age: 28 years old Clinical indication: Other: Ongoing cold symptoms; Additional info: Chest pain, cough, fever, tachycardia TECHNIQUE: Imaging protocol: Radiologic exam of the chest. Views: 1 view. COMPARISON: DX ([id number], CHEST, CXR AP GRID [facility]) 05/31/2021 8:59 PM FINDINGS: Lungs: Unremarkable. No consolidation. Pleural spaces: Unremarkable. No pleural effusion. No pneumothorax. Heart/Mediastinum: Unremarkable. No cardiomegaly. Bones/joints: Unremarkable. Procedure Note Adrian Newton MD - 04/12/2024 PROCEDURE INFORMATION: Exam: XR Chest Exam date and time: 04/12/2024 3:44 AM Age: 28 years old Clinical indication: Other: Ongoing cold symptoms; Additional info: Chestpain, cough, fever, tachycardia TECHNIQUE: Imaging protocol: Radiologic exam of the chest. Views: 1 view. COMPARISON: DX ([id number], CHEST, CXR AP GRID [facility]) 05/31/2021 8:59 PM FINDINGS: Lungs: Unremarkable. No consolidation. Pleural spaces: Unremarkable. No pleural effusion. No pneumothorax. Heart/Mediastinum: Unremarkable. No cardiomegaly. Bones/joints: Unremarkable. IMPRESSION IMPRESSION: No acute findings. THIS DOCUMENT HAS BEEN ELECTRONICALLY SIGNED BY ADRIAN NEWTON MD Christopher Schwarz MD RADIOLOGY ([facility]) Final Result * (ABNORMAL) INFLUENZA A/B RSV SARS-COV2,PCR (04/12/2024 3:30 AM EST) Pathologist [facility] SARS-CoV-2 (COVID-19) Result Negative Negative 04/12/2024 4:34 AM EST [facility] Comment: No SARS-CoV2 Coronavirus RNA detected by PCR (amplified probe). This express test was developed and its performance characteristics determined by [facility]. It has not been cleared or approved [...] (RT-PCR) test, or a Centers for Disease Control- acceptable equivalent. The test is performed in a high complexity Clinical Laboratory Improvement Amendments-(CLIA) certified laboratory. The test is acceptable for SARS-CoV-2 diagnosis, surveillance, and travel within the [place] and to most countries. Please check with local testing authorities about requirements before travel. The validation of bronchial specimens, tracheal aspirates, and sputum for this assay was developed and performance characteristics determined by [facility]. The validation of alternate specimen types has not been cleared or approved by the U.S. Food and Drug Administration (FDA). It has been determined that such clearance is not necessary. Influenza A PCR Result Positive(A) Negative 04/12/2024 4:34 AM EST [facility] Comment: Influenza A RNA detected by PCR (amplified probe). Test results reported to [facility]. Influenza B PCR Result Negative Negative 04/12/2024 4:34 AM EST [facility] Comment:No Influenza B RNA d etected by PCR (amplified probe) RSV PCR Result Negative Negative 04/12/2024 4:34 AM EST [facility] Comment:No Respiratory Syncy tial Virus RNA detected by PCR (amplified probe) Upper Respiratory Mid-turbinate nasal swab / Unknown Non-blood Collection / Unknown 04/12/2024 3:30 AM EST 04/12/2024 3:36 AM EST Sherrie Lorenzo PA-C LAB MICRO - GENERAL ORDERABLES Final Result LABORATORY [address] [address] documented in this encounter Visit Diagnoses Diagnosis Influenza A- Primary Influenza with other respiratory manifestations documented in this encounter Administered Medications Inactive Administered Medications - up to 3 most recent administrations Medication Order MAR Action Action Date Dose Rate Site Acetaminophen (Tylenol) tab 650 mg 650 mg, Oral, ONCE, On 04/12/24 at 0400, For 1 dose, Maximum of 4 grams (4000 mg) per day. Given 04/12/2024 3:30 AM EST 650 mg oseltamivir (Tamiflu) cap 75 mg 75 mg, Oral, BID (.AM/PM), First dose on 04/12/24 at 0445, Last dose on Sun04/16/24 at 2100, For 5 days Given 04/12/2024 4:43 AM EST 75 mg documented in this encounter Active and Recently Administered Medications Times are shown in EST. Scheduled Medication Order 04/10/2024 04/11/2024 04/12/2024 Acetaminophen (Tylenol) tab 650 mg (COMPLETED) 650 mg, Oral, ONCE, On 04/12/24 at 0400, For 1 dose, Maximum of 4 grams (4000 mg) per day. 0330 (Given - Provid er: Cesar Paez RN) oseltamivir (Tamiflu) cap 75 mg 75 mg, Oral, BID (.AM/PM), First dose on 04/12/24 at 0445, Last dose on Sun04/16/24 at 2100, For 5 days 0443 (Given - Provid er: Cesar Paez RN) documented in this encounter Additional Health Concerns Infection Onset Date Last Indicated Resolved Time Influenza (seasonal) 04/12/2024 04/12/2024 documented as of this encounter Care Teams Waste Oil Pumper Relationship Specialty Start Date End Date Andrea Romero CRNP [address] [place] [phone] PCP - General Nurse Practitioner 01/01/24 documented as of this encounter
--- OUTSIDE RECORDS SUMMARY | 2024-06-07 16:15 | External Medical Summary | Summary of Care ---
Author Name Unknown Organization [facility] Address [address] [place] [address] Phone [phone] Care Team Providers Care Regional Loss Prevention Manager Name Role Phone Andrea Romero Primary Care Provider [phone] Reason for Visit * Reason Onset Date Comments Advice 02/13/2024 Encounter Details Date Type Department Care Team ([facility] Contact Info) Description 02/13/2024 Telephone [facility] [address] [place] [address] Andrea Romero CRNP [address] [place] [address] Advice Allergies No known active allergiesdocumented as of this encounter (statuses as of 02/13/2024) Medications Lurasidone HCl 60 MG Oral Tablet (Latuda) [...] 6 Tablet 11/01/2023 11:51 AM EDT 11/01/19 24 Active Additional Information Patient not taking.Reported on 01/08/2024 Benzonatate 100 MG Oral Capsule (Jessicamarkusabelardo Julisa)Indications :Upper respiratory tract infection, unspecified type Take 1 Capsule by mouth 3 times a day as needed for Cough. 20 Capsule 1 01/08/20 24 Active Chlorhexidine Gluconate 0.12 % Mouth/Throat Solution (Periogard)Indicat ions:Pain, dental Swish and spit 15 mL in the morning and 15 mL before bedtime. 473 mL 01/08/20 24 Active Cyclobenzaprine HCl 10 MG [...] encounter Miscellaneous Notes * Telephone Encounter - Mirela Dorsey LPN - 02/13/2024 11:35 AM EST Appt schedule for ER follow up. Patient states work is denying workers comp. Patient very hard to understand but I informed him it may still need to be billed through workers comp. There is workers comp insurance information in chart from ER visit. * Telephone Encounter - Amena Hayden OSA - 02/13/2024 10:18 AM EST An order was requested for this patient. Name of Requesting Provider: Patient Order Requested: MRI Diagnosis/Reason for Request: Pt got injured at work and when at the hospital, they only did an xray What location AND department does the patient wish to have their order completed at? In [place] Fax Number, if applicable: n/a If the caller is not a current patient, please advise the patient to call their current PCP to havethe order's prior to being seen in our office. The patient was informed that our providers would not order anything (medication, labs, etc.) prior to being seen. documented in this encounter Plan of Treatment Upcoming Encounters Date Type Department Care Team (Late st Contact Info) Description 02/14/2024 3:20 PM EST Office Visit [facility] [address] [place] [phone] Andrea Romero CRNP [address] [place] [address] Health Maintenance Due Date Last Done Comments [...] filedocumented as of this encounter Care Teams Regional Loss Prevention Manager Relationship Specialty Start Date End Date Andrea Romero CRNP [address] [place] [address] PCP - General Nurse Practitioner 01/01/24 documented as of this encounter
--- OUTSIDE RECORDS SUMMARY | 2024-06-07 16:15 | External Medical Summary | Summary of Care ---
Author Name Unknown Organization [facility] Address [address] [place] [address] Phone [phone] Care Team Providers Care Supervisor Winding Department Name Role Phone Andrea Romero Primary Care Provider [phone] Reason for Visit * Reason Comments Emergency Department Follow-Up [facility] Encounter Details Date Type Department Care Team ([facility] st Contact Info) Description 02/14/2024 3:20 PM EST Office Visit [facility] [address] [place] [address] Andrea Romero CRNP [address] [place] [address] Spasm of muscle of lower back* Allergies No known active allergiesdocumented as of this encounter (statuses as of 02/14/2024) Medications Albuterol Sulfate HFA 108 (90 Base) MCG/ACT Inhalation Aerosol SolutionIndicatio ns:Acute cough Inhale 2 Puffs by mouth every 6 hours as needed for Wheezing. 18 g 023 Active Additional Information Patient not taking.Reported on 02/14/2024 Benzonatate 100 MG Oral Capsule (Tessalabelardo Egan)Indication s:Upper respiratory tract infection, unspecified type Take 1 Capsule by mouth 3 times a day as needed for Cough. 20 Capsule 1 024 Active Cyclobenzaprine HCl 10 MG Oral Tablet (Flexeril) Take 1 Tablet by mouth 3 times a day as needed for Pain. 30 Tablet 024 Active Lurasidone HCl 60 MG Oral Tablet (Latuda) TAKE 1 TABLET BY MOUTH ONCE A DAY AFTER A MEAL 023 2023 Discontinued Fluticasone Propionate 50 MCG/ACT Nasal Suspension (Flonase)Indicati ons:Acute rhinosinusitis Administer 2 Sprays into each nostril in the morning. 18 mL 023 2023 Discontinued predniSONE 20 MG Oral Tablet (Deltasone)Indica tions:Bronchitis, complicated Take 2 Tablets by mouth in the morning for 5 days. 10 Tablet 4 11:51 AM EDT 024 2023 Discontinued Azithromycin 250 MG Oral Tablet (Zithromax Z-Benton)Indications :Bronchitis, complicated Take two tablets by mouth on first day, then 1 tablet daily until gone 6 Tablet 4 11:51 AM EDT 024 2023 Discontinued Chlorhexidine Gluconate 0.12 % Mouth/Throat Solution (Periogard)Indica tions:Pain, dental Swish and spit 15 mL in the morning and 15 mL before bedtime. 473 mL 024 2023 Discontinued documented as of this encounter (statuses as of 02/14/2024) Active Problems Problem Noted Date Diagnosed Date Tobacco use disorder 05/10/2015 Respiratory symptoms 02/16/2006 Overview (12/12/2018): ICD-10 update of inactive term Chronic sinusitis 07/07/2005 Allergic rhinitis 07/07/2005 Undiagnosed cardiac murmurs documented as of this encounter (statuses as of 02/14/2024) Resolved Problems Problem Noted Date Diagnosed Date Resolved Date Paranoia 08/31/2021 07/27/2023 Obesity, pediatric, BMI 95th to 98th percentile for age 0306/03/2009 02/23/2022 Overview (06/03/2009): Per Obesity Taxonomy OBESITY, UNSPECIFIED 02/16/2006 010 Overview (06/03/2009): Per Obesity Taxonomy ADVANCE DIRECTIVE INFORMATION 01/05/2005 01/14/2024 Overview (01/05/2005): Not applicable (under age of 18) documented as of this encounter (statuses as of 02/14/2024) Immunizations Name Administration Dates Next Due HEP [...] 1 8.6 Started: 06/23/2015 Smokeless Tobacco: Never Tobacco Cessation:Ready [...] Sign Reading Time Taken Comments Blood Pressure 106/64 02/14/2024 3:48 PM EST Pulse 93 02/14/2024 3:48 PM EST Temperature 37.3 °C (99.2 °F) 02/14/2024 3:48 PM ES T Respiratory Rate 18 02/14/2024 3:48 PM EST Oxygen Saturation 98% 02/14/2024 3:48 PM EST Inhaled Oxygen Concentration - - Weight 85.1 kg (187 lb 9.6 oz) 02/14/2024 3:48 P M EST Height 167.6 cm (5' 5.98") 02/14/2024 3:48 PM ES T Body Mass Index 30.29 02/14/2024 3:48 PM EST documented in this encounter Patient Instructions * Patient Instructions* Andrea Romero CRNP - 02/14/2024 4:00 PM EST Images from the original note were not included. You can take up to 600mg ibuprofen (Motrin) three times daily with food. Do not take both of these at the same time. You should also take up to 1000mg acetaminophen (Tylenol) every 8 hours as needed too for pain relief. Taking Tylenol with ibuprofen is safe, because they are processed differently by the body. Hot baths, ice, heating pad are also great options. Voltaren (Diclofenac) gel is also available over the counter without a prescription for about $10, and lidocaine 4% patches are about $1 each without a prescription. These can all be helpful. Stretching can be incredibly powerful to help with sore muscles, and there are LOTS of great videoson youtube for guided stretching for free. Dr. Hernandez physical therapy. documented in this encounter Progress Notes * Andrea Romero CRNP - 02/14/2024 3:52 PM EST Images from the original note were not included. History of Present Illness Chief Complaint Patient presents with Emergency Department Follow-Up [facility] 02/12/24 Brief Clinical History Mr. Vargas is a 28 year old male last seen in [facility] on 01/08/2024 by Margaret Hawley He has a h/o the following chronic conditions indicated on the problem list: Chronic Conditions None Back Pain This is a new problem. Episode onset: 2 days ago. The problem is unchanged. The pain is present in the lumbar spine. The quality of the pain is described as cramping. The pain does not radiate. The pain is at a severity of 5/10. The pain is moderate. The symptoms are aggravated by standing and twisting. Pertinent negatives include no bladder incontinence, bowel incontinence, chest pain, dysuria, fever, headaches, leg pain, paresis, paresthesias, pelvic pain, perianal numbness, tingling or weakness. He has tried muscle relaxant and NSAIDs for the symptoms. The treatment provided mild relief. Review of Systems Constitutional: Negative. Negative for fever. HENT: Negative. Eyes: Negative. Respiratory: Negative. Cardiovascular: Negative. Negative for chest pain. Gastrointestinal: Negative. Negative for bowel incontinence. Genitourinary: Negative. Negative for bladder incontinence, dysuria and pelvic pain. Musculoskeletal: Positive for back pain. Skin: Negative. Neurological: Negative for tingling, weakness, headaches and paresthesias. Physical Exam BP 106/64 | Pulse 93 | Temp 99.2 °F (37.3 °C) (Tympanic) | Resp 18 | Ht 5' 5.98" (1.676 m) | Wt 187 lb 9.6 oz (85.1 kg) | SpO2 98% | BMI 30.29 kg/m² | BSA 1.99 m² Physical Exam Vitals reviewed. Constitutional: Appearance: Normal appearance. He is normal weight. HENT: Head: Normocephalic. Right Ear: Tympanic membrane, ear canal and external ear normal. Left Ear: Tympanic membrane, ear canal and external ear normal. Nose: Nose normal. Mouth/Throat: Pharynx: Oropharynx is clear. Eyes: Pupils: Pupils are equal, round, and reactive to light. Cardiovascular: Rate and Rhythm: Normal rate and regular rhythm. Pulses: Normal pulses. Heart sounds: Normal heart sounds. Pulmonary: Effort: Pulmonary effort is normal. Breath sounds: Normal breath sounds. Abdominal: General: Bowel sounds are normal. Palpations: Abdomen is soft. Musculoskeletal: General: Tenderness present. Normal range of motion. Cervical back: Normal range of motion. Skin: General: Skin is warm and dry. Capillary Refill: Capillary refill takes less than 2 seconds. Neurological: Mental Status: He is alert and oriented to person, place, and time. Assessment and Plan Spasm of muscle of lower back (Primary) - Encouraged bid stretching for 15 minutes, heat, ibuprofen with food. Muscle relaxants warranted at this time. Still has at home. OTC pain medication dosing provided. Formal physical therapy if not improved. - Continue taking flexeril as needed. Wrap-Up Pt is to follow up as needed. Pt is to notify us of any concerning or worsening symptoms. Pt expresses understanding and satisfaction with plan. Time: I spent a total of 20-29 minutes (exact time 20 mins) on the date of service in preparation, delivery, and documentation of the care provided to Kadeem Vargas excluding any time spent in the performance of separately billed services. NEW Munoz documented in this encounter Nursing Notes * Anita Araujo CCMA - 02/14/2024 3:46 PM EST Chief Complaint Patient presents with Emergency Department Follow-Up [facility] 02/12/24 Kadeem Vargas is a 28 year old male who presents to clinic today for a ED F/U. Patient went into the ED on 02/11 c/o lower back pain. Patient is still having the pain today. He said that the Flexeril is not working. Pt was undecided about flu shot but declined other vaccines. documented in this encounter Plan of Treatment [...] as of this encounter Visit Diagnoses Diagnosis Spasm of muscle of lower back- Primary documented in this encounter Care Teams Supervisor Winding Department Relationship Specialty Start Date End Date Andrea Romero CRNP [address] [place] [id number] PCP - General Nurse Practitioner 01/01/24 documented as of this encounter
--- OUTSIDE RECORDS SUMMARY | 2024-06-07 16:15 | External Medical Summary | Summary of Care ---
Author Name Unknown Organization [facility] Address [address] [place] [address] Phone [phone] Care Team Providers Care Human Resource Intern Name Role Phone Khoi Sterling Primary Care Provider [phone] Reason for Visit * Reason Onset Date Comments No Show 04/17/2024 [facility] No Show Auto mation Encounter Details Date Type Department Care Team ([facility] st Contact Info) Description 04/17/2024 [facility] [address] [place] [address] Khoi Sterling CRNP [address] [place] [address] No Show ([place] No Show Automation) Allergies No known active allergiesdocumented as of this encounter (statuses as of 04/17/2024) Medications Albuterol Sulfate HFA 108 (90 Base) [...] hours as needed for Cough. 18 g Active documented as of this encounter (statuses as of 04/17/2024) Active Problems Problem Noted Date Diagnosed Date Tobacco use disorder 05/10/2015 Respiratory symptoms 02/16/2006 Overview (12/12/2018): ICD-10 update of inactive term Chronic sinusitis 07/07/2005 Allergic rhinitis 07/07/2005 Undiagnosed cardiac murmurs documented as of this encounter (statuses as of 04/17/2024) Resolved Problems Problem Noted Date Diagnosed Date Resolved Date Paranoia 08/31/2021 07/27/2023 Obesity, pediatric, BMI 95th to 98th percentile for age 0306/03/2009 02/23/2022 Overview (06/03/2009): Per Obesity Taxonomy OBESITY, UNSPECIFIED 02/16/2006 010 Overview (06/03/2009): Per Obesity Taxonomy ADVANCE DIRECTIVE INFORMATION 01/05/2005 01/14/2024 Overview (01/05/2005): Not applicable (under age of 18) documented as of this encounter (statuses as of 04/17/2024) Immunizations Name Administration Dates Next Due HEP [...] encounter Miscellaneous Notes * Telephone Encounter - [place], No Show - 04/17/2024 7:18 AM EST Dear Kadeem Vargas, Looks like you missed an appointment with KHOI STERLING on 04/14/2024 at 04:00 PM. If you haven't already rescheduled, you have a couple of options: Reschedule in [employer]/scheduling Call us at [phone] Can't make a future appointment? Cancel and let someone else have your spot! It's easy to do via [employer] or by calling us. Thanks for trusting [facility] with your care. We hope to see you back in our office soon. Sincerely, KHOI STERLING documented in this encounter Plan of Treatment Upcoming Encounters Date Type Department Care Team (Late st Contact Info) Description 04/18/2024 11:00 AM EST [facility] [address] [place] [address] Khoi Sterling CRNP [address] [place] [address] Health Maintenance Due Date Last Done Comments [...] documented as of this encounter Care Teams Human Resource Intern Relationship Specialty Start Date End Date Khoi Sterling CRNP [address] [place] [address] PCP - General Nurse Practitioner 01/01/24 documented as of this encounter
--- NOTE | 2024-06-07 16:37 | Emergency Department Note ---
Impression & Plan Suicide attempt by multiple drug overdose, Drug overdose ED Provider Note NAME: PETER ROSALES AGE: 28 SEX: M : 1995 ARRIVES VIA: Walk-In INFORMANT: Patient ED PROVIDER(S): Humble Westbrook DO CHIEF COMPLAINT: Suicidal attempt HPI: Patient is a 28-year-old male who presents ER with a past medical history of schizophrenia or suicide attempt. He took 2 tabs of Flexeril 10 mg in order to kill himself. He also took 200 mg of Benzonate in combination with this. He denies any aspirin and does not need to taking 2 tabs of Tylenol earlier today but not to kill himself. He notes that he hears voices in his head. He denies any headache or change in vision. No chest pain or shortness of breath. No nausea, vomiting, or diarrhea. ADDITIONAL HISTORY OBTAINED: Additional history is obtained from his brother who is present at bedside and notes that he brought him in due to the suicide attempt. Chronic Medical/Social Conditions Affecting Care: Per HPI PAST MEDICAL HISTORY:See Below PAST SURGICAL HISTORY:See Below FAMILY HISTORY:See Below SOCIAL HISTORY:See Below HOME MEDICATIONS:See Below ALLERGIES:See Below VITALS:See Below PHYSICAL EXAMINATION: GENERAL: Sitting up in bed, alert, well appearing, well nourished, no distress, non-toxic EYE EXAM: normal conjunctiva. PERRL and EOM's grossly intact. OROPHARYNX: mucous membranes are moist NECK: supple, no nuchal rigidity, no adenopathy, non-tender LUNGS: Clear to auscultation. Normal chest wall mechanics HEART: no murmurs, S1 normal and S2 normal ABDOMEN: abdomen soft, non-tender, normo-active bowel sounds, no masses, no rebound or guarding. UPPER EXTREMITIES: upper extremities are grossly normal. LOWER EXTREMITIES: No pitting edema. NEURO EXAM: Normal sensorium, cranial nerves II-XII grossly intact, normal speech, no gross weakness of arms, no gross weakness of legs. MEDICAL DECISION MAKING: Patient is a 28-year-old male who presents to the ER for the above-stated complaint. IV was established and blood work was obtained. Labs showed no significant leukocytosis or anemia. BMP along with LFTs, bilirubin, and TSH unremarkable. UA was clean. Alcohol was negative. COVID was negative. EKG was unremarkable. Patient was discussed with [place] poison control and they recommended a 6 to 8-hour observation. I spoke with the brother who is present at bedside and provided additional history and notes that he did not take anything after 2:00. So he is medically cleared around 8:00. Referrals were made after discussion with our psychiatric managed care analyst. [address] by brother. Referral was made to 3 S. patient was accepted and admitted on a 201. Consults/Care Managements Discussions: Per [facility] Triage Nursing notes reviewed. Limited review of prior medical records performed Vital Signs: reviewed and remarkable for HTN adn tachy Differential diagnosis: Mood disorder, infection, hypoglycemia, electrolyte abnormalities, cardiac sources, intracerebral event, toxicologic, trauma, neurologic, as well as other pathologies. ER treatment provided: See below Diagnostics interpreted by me include EKG and cardiac monitoring as listed below: -Cardiac Monitoring: An order was placed for continuous cardiac monitoring. The monitor shows a rate of 101 with sinus rhythm. -ECG: Sinus rhythm rate of 90 Normal axis No PVCs QTc 411 -Laboratory studies:Interpreted by me as stated above in MDM and shown below. Imaging studies: Xrays: As interpreted by me:none CTs show: none Procedures:none Critical Care: None Past Med/Surg History Problem List (Updated 06/07/24 @ 21:31 by Humble Westbrook DO) Drug overdose (Acute) Suicide attempt by multiple drug overdose (Acute) Social History Smoking Status: Current every day smoker Tobacco Type: Cigarettes Preferred Language: Palauan Feels Safe at Home: Yes Gender Identity: Male Allergies Allergies Allergy/AdvReac Type Severity Reaction Status Date / Time No Known Allergies Allergy Unverified 06/07/24 17:11 Home Meds Home Medications Medication Instructions Recorded Confirmed amoxicillin 875 mg-potassium 1 tab PO BID 06/07/24 06/07/24 clavulanate 125 mg tablet mupirocin 2 % topical ointment 1 applic topical TID 06/07/24 06/07/24 Results & Data (ED) Vital Signs Vital Signs - 24 hr 06/07/24 16:09 06/07/24 16:48 06/07/24 18:38 Temperature 36.5 C Temperature Source Skin Pulse Rate 109 H Pulse Rate [Left Finger] 86 Respiratory Rate 16 20 Respiratory Effort / Characteristics Non-Labored Spontaneous Respiratory Depth Normal Respiratory Pattern Regular Blood Pressure 142/69 H Blood Pressure [Left Arm] 131/78 Blood Pressure Mean 93 Blood Pressure Mean [Left Arm] 95 Blood Pressure Position [Left Arm] Sitting Pulse Oximetry 98 98 Oxygen Delivery Method Room Air Room Air Room Air Sepsis Recent Fever Within 48 Hours No Sepsis New/Unexplained Change in Mental Status N/A Sepsis Action Taken by Nursing No Action Required 06/07/24 20:32 Temperature Temperature Source Pulse Rate Pulse Rate [Left Finger] 85 Respiratory Rate 20 Respiratory Effort / Characteristics Respiratory Depth Respiratory Pattern Blood Pressure Blood Pressure [Left Arm] 110/66 Blood Pressure Mean Blood Pressure Mean [Left Arm] 80 Blood Pressure Position [Left Arm] Sitting Pulse Oximetry 95 Oxygen Delivery Method Room Air Sepsis Recent Fever Within 48 Hours Sepsis New/Unexplained Change in Mental Status Sepsis Action Taken by Nursing Laboratory Data 06/07/24 16:40 06/07/24 16:40 Lab Results 06/07/24 06/07/24 06/07/24 Range/Units 16:30 16:40 16:41 WBC 9.79 (4.8-10.8) K/ul RBC 4.94 (4.70-6.10) M/uL Hgb 15.3 (14.0-18.0) g/dl Hct 44.5 (42.0-52.0) % MCV 90.1 (80.0-100.0) fL MCH 31.0 (25.0-34.0) pg MCHC 34.4 (32.0-36.0) g/dL RDW Std Deviation 41.6 (36.4-46.3) fL RDW Coeff of Harper 12.6 (11.5-14.5) % Plt Count 268 (130-400) K/uL MPV 9.2 L (9.4-12.4) fL Immature Gran % (Auto) 0.3 % Neut % (Auto) 64.0 % Lymph % (Auto) 28.1 % Coffee % (Auto) 5.9 % Eos % (Auto) 0.9 % Baso % (Auto) 0.8 % Neut # (Auto) 6.26 (1.40-6.50) K/uL Lymph # (Auto) 2.75 (1.20-3.40) K/uL Coffee # (Auto) 0.58 (0.11-0.59) K/uL Eos # (Auto) 0.09 (0.00-0.50) K/uL Baso # (Auto) 0.08 (0.00-0.20) K/uL Immature Gran # (Auto) 0.03 (0.01-0.20) K/uL Sodium 138 (136-145) mmol/L Potassium 3.5 (3.5-5.1) mmol/L Chloride 104 (98-107) mmol/L Carbon Dioxide 25 (21-32) mmol/L Anion Gap 9 (3-11) BUN 8 (6-23) mg/dl Creatinine 0.98 (0.6-1.4) mg/dl Est Cr Clr Drug Dosing 125.7 ml/min eGFR 107.72 BUN/Creatinine Ratio 8.2 L (10-20) Glucose 99 (70-99(Fasting)) mg/dl Calcium 9.8 (8.6-10.3) mg/dl Total Bilirubin 0.5 (0.2-1.0) mg/dl AST 19 (13-39) U/L ALT 24 (7-52) U/L Alkaline Phosphatase 57 (34-104) U/L Total Protein 7.9 (6.0-8.3) gm/dl Albumin 4.8 (3.4-5.0) gm/dl Globulin 3.1 (2.5-4.0) gm/dl Albumin/Globulin Ratio 1.5 (0.9-2) TSH 1.639 (0.300-4.500) uIu/ml Urine Color Yellow Urine Appearance Clear (Clear) Urine pH 6.0 (4.5-7.5) Ur Specific [place] 1.026 (1.000-1.030) Urine Protein Trace H (Negative) Urine Glucose (UA) Negative (Negative) Urine Ketones Trace H (Negative) Urine Blood Negative (Negative) Urine Nitrite Negative (Negative) Urine Bilirubin Negative (Negative) Urine Urobilinogen Negative (Negative) Ur Leukocyte Esterase Negative (Negative) Urine WBC (Auto) 0-5 (0-5) /hpf Urine RBC (Auto) 3-5 H (0-2) /hpf U Hyaline Cast (Auto) 0-2 (0-2) /lpf U Epithel Cells (Auto) 0-2 (0-2) /hpf Urine Bacteria (Auto) None Seen (None Seen) Salicylates < 3.0 L (3.0-30) mg/dl Urine Opiates Screen Neg (Neg) Ur Methadone, Qual Neg (Neg) Urine Fentanyl Screen Neg (Neg) Acetaminophen < 3 L (10-30) ug/ml Urine Barbiturates Neg (Neg) Ur Phencyclidine (PCP) Neg (Neg) U Amphetamin/Meth Scrn Neg (Neg) MDMA (Ecstasy) Screen Neg (Neg) U Benzodiazepines Scrn Neg (Neg) Ur Cocaine Metabolite Neg (Neg) U Marijuana (THC) Screen Neg (Neg) Ethyl Alcohol mg/dL < 10.0 (<10.0) mg/dl SARS-CoV-2, RNA, NAAT NEGATIVE (NEGATIVE) Administered Medications Nicotine (Nicotine 14 Mg/24 Hr Patch) 1 patch TD QAM DOMINIK Stop: 07/07/24 18:59 Last Admin: 06/07/24 18:53 Dose: 1 patch Documented By: ARIANA Discharge Plan Visit Data Chief Complaint: Overdose (Accidental) Stated Complaint: POSSIBLE ACCIDENTAL OVERDOSE ED Provider: Humble Westbrook Discharge Problem: Suicide attempt by multiple drug overdose, Drug overdose Forms Stand Alone Forms: My [facility] Prescriptions Prescriptions: No Action amoxicillin-pot clavulanate 875-125 mg tablet 1 tab PO BID mupirocin 2 % ointment 1 applic TOPICAL TID Rx Instructions: pt reports he applied to head for itchiness Referrals Referrals: PCP,NO [Primary Care Provider] - Discharge Problem: Suicide attempt by multiple drug overdose Qualifiers: Encounter type: initial encounter Qualified Code(s): T50.912A - Poisoning by multiple unspecified drugs, medicaments and biological substances, intentional self-harm, initial encounter Drug overdose Qualifiers: Encounter type: initial encounter Injury intent: undetermined intent Qualified Code(s): T50.904A - Poisoning by unspecified drugs, medicaments and biological substances, undetermined, initial encounter
[2024-06-07 17:00] LABS: Basophils # (auto) 0.08 K/uL (0.00-0.20); Basophils % (auto) 0.8 %; Eosinophils # (auto) 0.09 K/uL (0.00-0.50); Eosinophils % (auto) 0.9 %; Hematocrit (blood only) 44.5 % (42.0-52.0); Hemoglobin 15.3 g/dl (14.0-18.0); Immature Granulocytes # (auto) 0.03 K/uL (0.01-0.20); Immature Granulocytes % (auto) 0.3 %; Lymphocytes # (auto) 2.75 K/uL (1.20-3.40); Lymphocytes % (auto) 28.1 %; Mean Corpuscular Hgb Conc 34.4 g/dL (32.0-36.0); Mean Corpuscular Volume 90.1 fL (80.0-100.0); Mean Platelet Volume 9.2 fL (9.4-12.4); Monocytes # (auto) 0.58 K/uL (0.11-0.59); Monocytes % (auto) 5.9 %; Neutrophils # (auto) 6.26 K/uL (1.40-6.50); Platelet Count 268 K/uL (130-400); RDW Coefficient of Variation 12.6 % (11.5-14.5); RDW Standard Deviation 41.6 fL (36.4-46.3); Red Blood Count 4.94 M/uL (4.70-6.10); White Blood Count 9.79 K/ul (4.8-10.8)
[2024-06-07 17:09] LABS: Appearance Urine Clear (Clear); Bacteria Urine Automated None Seen (None Seen); Bilirubin Urine Negative (Negative); Blood Urine Negative (Negative); Cast Urine Automated 0-2 /lpf (0-2); Color Urine Yellow; Epithelial Cell Urine Auto 0-2 /hpf (0-2); Glucose Urine UA Negative (Negative); Ketones Urine Trace (Negative); Leukocyte Esterase Urine Negative (Negative); Nitrite Urine Negative (Negative); Protein Urine Trace (Negative); Specific Gravity Urine 1.026 (1.000-1.030); Urobilinogen Urine Negative (Negative); WBC Urine Automated 0-5 /hpf (0-5)
[2024-06-07 17:16] LABS: Albumin Globulin Ratio 1.5 (0.9-2); Albumin Level 4.8 gm/dl (3.4-5.0); BUN Creatinine Ratio 8.2 (10-20); Bilirubin,Total 0.5 mg/dl (0.2-1.0); Calcium 9.8 mg/dl (8.6-10.3); Creatinine Clr Calc Pharmacy 125.7 ml/min; Globulin 3.1 gm/dl (2.5-4.0); Potassium 3.5 mmol/L (3.5-5.1); Total Protein 7.9 gm/dl (6.0-8.3)
[2024-06-07 17:24] LABS: Acetaminophen < 3 ug/ml (10-30); Salicylate < 3.0 mg/dl (3.0-30)
[2024-06-07 17:32] LABS: Thyroid Stimulating Hormone 1.639 uIu/ml (0.300-4.500)
[2024-06-07 17:43] LABS: Amphetamines+Metham, Urine Neg (Neg); Barbiturates, Urine Neg (Neg); Benzodiazepine, Urine Neg (Neg); Cocaine, Urine Neg (Neg); Fentanyl, Urine Neg (Neg); MDMA (Ecstacy), Urine Neg (Neg); Marijuana, Urine Neg (Neg); Methadone, Urine Neg (Neg); Opiate, Urine Neg (Neg); Phencyclidine, Urine Neg (Neg)
[2024-06-07] MEDS: NICOTINE 14 MG/24 HR PATCH TD SCH (18:53)
[2024-06-07] MEDS ORDERED: ALUMINUM/MAGNESIUM SUSP 30 ML UDC PO PRN (22:31)
[2024-06-07] MEDS ORDERED: BISMUTH SUBSALICYLATE 262 MG CHEW PO PRN (22:31)
[2024-06-07] MEDS ORDERED: SODIUM CHLORIDE 0.65% NA SOLN 45 ML (OCEAN) PRN (22:31)
[2024-06-07] MEDS: OLANZapine 5 MG TABLET PO ONE (22:41)
[2024-06-07] MEDS: HALOPERIDOL LACTATE 5 MG/ML 1 ML VIAL IM STA (23:42)
[2024-06-07] MEDS: diphenhydrAMINE 50 MG/ML VIAL IM STA (23:42)
[2024-06-07] MEDS: LORazepam 2 MG/1 ML VIAL IM STA (23:42)
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
[2024-06-08] MEDS ORDERED: diphenhydrAMINE 50 MG/ML VIAL IM PRN (09:14)
[2024-06-08] MEDS ORDERED: HALOPERIDOL LACTATE 5 MG/ML 1 ML VIAL IM PRN (09:14)
[2024-06-08] MEDS ORDERED: LORazepam 2 MG/1 ML VIAL IM PRN (09:14)
--- NOTE | 2024-06-08 13:49 | Electrocardiogram Report ---
Test Reason : Blood Pressure : */* mmHG Vent. Rate : 90 BPM Atrial Rate : 90 BPM P-R Int : 140 ms QRS Dur : 90 ms QT Int : 336 ms P-R-T Axes : 53 18 44 degrees QTcB Int : 411 ms Normal sinus rhythm Normal ECG No previous ECGs available Confirmed by Jo-Ann Sofia (Ryan) on 06/08/2024 1:48:42 PM Referred By: REFERRED SELF Confirmed By: Jo-Ann Sofia
[2024-06-08] MEDS: NICOTINE 21 MG/24 HR TDSY TD SCH (17:29)
[2024-06-08] MEDS: NICOTINE POLACRILEX 2 MG GUM MT PRN (18:09)
[2024-06-08] MEDS: ARIPiprazole 5 MG TAB PO PRN (18:16)
[2024-06-08] MEDS: ACETAMINOPHEN 325 MG TAB PO PRN (19:18)
[2024-06-08] MEDS: LORazepam 1 MG TAB PO PRN (20:42)
[2024-06-09] MEDS: haloperidoL 5 MG TAB PO PRN ×2 (06:03→16:47)
--- NOTE | 2024-06-09 08:56 | Psychiatric Progress Note ---
Date of Service June 09, 2024 Impression / Recommendations Impression PETER ROSALES is a 28-year-old man who currently lives in [place], has a history of schizophrenia, and was admitted on 06/07/24 22:27 on a 201 voluntary but then switched to 302 involuntary commitment for psychosis and aggression and suicide attempt via polypharmacy ingestion. 302 commitment completed due to recent suicide attempt with ongoing psychosis and aggression and his inability to participate in any type of safety planning, he requires inpatient psychiatric hospitalization for safety and stabilization. Diagnostically consistent with unspecified psychosis with differential including schizophrenia vs schizoaffective disorder given psychomotor agitation and reports of recent poor sleep and suicide attempt vs MDD with psychotic features vs substance-induced or withdrawal (but unlikely as UDS negative and he denied any recent use except nicotine). Unclear what factors lead to his dismissal from his previous outpatient psychiatric provider. A: Did not sleep well overnight and increased paranoia about someone using his toilet and toward nurses. He did accept haldol po prn which seemed to help but with significant sedation today. Unclear if this is due to haldol versus from recent poor sleep. Given potential for side effect will start scheduled risperidone to address acute psychosis. Will attempt labwork in a few days when he less paranoid, he remains unable to tolerate prolonged discussion about medications/risks/benefits nor participate with AIMS assessment. MNPR-acute aggression and significant psychosis with paranoia Overall, I spent a total of 40 minutes on this case including meeting with the patient, reviewing the chart, nursing report, multidisciplinary team meeting, orders, and documentation. (1) Suicide attempt by multiple drug overdose: (2) Unspecified psychosis not due to a substance or known physiological condition: (3) Schizophrenia: Plan 06/09/2024: -Discontinue abilify -Start risperidone 1mg BID -Continue haldol 5mg BID prn po for psychosis/paranoia 06/08/2024: The patient was admitted to the [facility] ([facility] inpatient mental health unit) on q15 min checks (behavioral with suicide precautions) for safety. The patient will participate in group, recreational, and milieu therapies and will be offered additional individual and family sessions as clinically appropriate. -Start abilify 5mg daily po tomorrow -For behavioral emergency: IM Benadryl 50mg, IM haldol 5mg and IM ativan 2mg BID prn for aggression -Work on ensuring he has additional outpatient services-confirming new intake for case management and new outpatient psychiatry Inventory Assets Strengths: supportive relationships, trusts brother Needs: safety and stabilization, medication adjustment, additional coping skills, increased outpatient services Suicide Risk Level Suicide Risk Level: High-Moderate (q15 min suicide checks) (s/p suicide attempt and ongoing psychosis with paranoia but no evidence for self-harming behavior, denies SI and able to make needs know, no current evidence to suggest he's having or responding to command hallucinations) Risk Factors Assessment Male: Yes : Yes Do You Have Access To A Gun?: No (brother removing from home, will need to confirm this was done) Health Problems: No Mental Health Diagnoses: Yes Substance Use Disorders: No Previous Attempt: Yes (leading to admission) Previous Psychiatric Hospitalization: Yes Protective Factors Assessment Employed: Yes Stable Relationships: Yes Supportive Family: Yes Interval History Identifying Information PETER ROSALES is a 28-year-old man who currently lives in [place], has a history of schizophrenia, and was admitted on 06/07/24 22:27 on a 201 voluntary but then switched to 302 involuntary commitment for psychosis and aggression and suicide attempt via polypharmacy ingestion. Chief Complaint "I want to feel awake during the day". Review of Systems Sleep Information Total Hours of Sleep: 3 Meal Information Percent Meal Consumed - Breakfast: 0 Percent Meal Consumed - Lunch: 0 Percent Meal Consumed - Dinner: 50 Nutrition Comment: sleeping Subjective Subjective Patient was seen & assessed and interval progress reviewed with treatment team. Slept for three hours. Awake at 6am thought someone was urinating in his toilet, paranoid, got prn haldol po. He was also paranoid about his paper with his family's phone numbers when nursing found it in the group room. Mid-morning he is lying in bed, participates briefly in interview but very tired . Today reports auditory hallucinations ('voices') have worsened over past few months, won't speak to what the voices are saying. Denies SI currently, but acknowledges attempt on Sunday. Experiencing fatigue and grogginess, attributes to taking haldol this morning. Reports memory issues for past two days, can't provide any explanation of recent events or why he became so agitated on Sunday morning. Previously on Latuda 60mg but he reports muscle twitches as side effect. He denies ever being on abilify despite medication reconciliation from prior to admission listing this as recent script. Denies prior use of Abilify, risperidone, Risperdal, or Zyprexa. First time on Haldol is this admission, but he reports it's causing fatigue. He agreed to try risperidone, prefers a medication with fewer side effects. Physical Exam Psychiatric Orientation: alert, oriented to person and + guarded Apperance: + disheveled Eye Contact: + fair eye contact Motor Behavior: no abnormal motor movements Speech: + abnormal rate/rhythm/volume of speech (brief) Affect: + flat affect Mood: + irritable mood Thought Process: + thought blocking Thought Content: + paranoid Suicidal Thoughts: denies suicidal thoughts Hallucinations: + auditory hallucinations Cognition: remote memory grossly intact; + recent memory not intact Insight: + poor insight Judgment: + limited judgement Vital Signs (Past 24 Hours) Last Vital Signs Temp 36.9 C 06/09/24 06:23 Pulse 98 H 06/09/24 06:23 Resp 18 06/09/24 06:23 BP 105/68 06/09/24 06:23 Pulse Ox 95 06/07/24 22:43 O2 Del Method Room Air 06/07/24 22:43 Results & Data ([facility]) Current Inpatient Medications Current Inpatient Medications: Current Inpatient Medications Acetaminophen (Acetaminophen 325 Mg Tab) 650 mg PO Q4H PRN PRN Reason: Headache or Minor Fever Stop: 07/07/24 22:30 Last Admin: 06/08/24 19:18 Dose: 650 mg Al Hydrox/Mg Hydrox/Simethicone (Aluminum/Magnesium Susp 30 Ml Udc) 30 ml PO Q4H PRN PRN Reason: GI Upset Stop: 07/07/24 22:30 Aripiprazole (Aripiprazole 5 Mg Tab) 5 mg PO QAM DOMINIK Stop: 07/09/24 08:59 Aripiprazole (Aripiprazole 5 Mg Tab) 5 mg PO DAILY PRN PRN Reason: psychosis Stop: 07/09/24 08:59 Last Admin: 06/08/24 18:16 Dose: 5 mg Bismuth Subsalicylate (Bismuth Subsalicylate 262 Mg Chew) 2 tab PO Q30M PRN PRN Reason: Loose Stool/Diarrhea Stop: 07/07/24 22:30 Diphenhydramine HCl (Diphenhydramine 50 Mg/Ml Vial) 50 mg IM BID PRN PRN Reason: aggression Stop: 07/08/24 09:13 Haloperidol (Haloperidol 5 Mg Tab) 5 mg PO BID PRN PRN Reason: Agitation Stop: 07/08/24 02:36 Last Admin: 06/09/24 06:03 Dose: 5 mg Haloperidol Lactate (Haloperidol Lactate 5 Mg/Ml 1 Ml Vial) 5 mg IM BID PRN PRN Reason: aggression Stop: 07/08/24 09:13 Hydroxyzine HCl (Hydroxyzine Hcl 25 Mg Tab) 50 mg PO HSZ PRN PRN Reason: Insomnia Stop: 07/07/24 22:30 Hydroxyzine HCl (Hydroxyzine Hcl 25 Mg Tab) 25 mg PO Q4H PRN PRN Reason: Anxiety Stop: 07/07/24 22:30 Lorazepam (Lorazepam 1 Mg Tab) 1 mg PO BID PRN PRN Reason: Agitation Stop: 07/08/24 02:34 Last Admin: 06/08/24 20:42 Dose: 1 mg Lorazepam (Lorazepam 2 Mg/1 Ml Vial) 2 mg IM BID PRN PRN Reason: aggression Stop: 07/08/24 09:13 Magnesium Hydroxide (Magnesium Hydroxide Susp 30 Ml Udc) 30 ml PO DAILY PRN PRN Reason: Constipation Stop: 07/07/24 22:30 Miscellaneous (Remove Nicoderm Patch) 1 each N/A DAILY@0859 ON [facility] OF [facility] Stop: 07/08/24 08:58 Last Admin: 06/08/24 17:29 Dose: Not Given Nicotine (Nicotine 21 Mg/24 Hr Tdsy) 1 patch TD QAM ON [facility] OF [facility] Stop: 07/08/24 08:59 Last Admin: 06/08/24 18:09 Dose: 1 patch Nicotine Polacrilex (Nicotine Polacrilex 2 Mg Gum) 2 piece MT PRN PRN PRN Reason: Nicotine Withdrawal Symptoms Stop: 07/07/24 21:42 Last Admin: 06/09/24 04:48 Dose: 2 piece Sodium Chloride (Sodium Chloride 0.65% Na Soln 45 Ml ([place])) 1 - 2 sprays NA PRN PRN PRN Reason: Nasal Dryness/Congestion Stop: 07/07/24 22:30 Mental Health & Subst Abuse Tx Therapist Name of Therapist: n/a Drying Room Attendant Name of Drying Room Attendant: n/a Post Discharge Appointments Primary Care Physician Name Of Family Doctor/PCP: No PCP (1) Suicide attempt by multiple drug overdose Encounter type: initial encounter Qualified Code(s): T50.912A - Poisoning by multiple unspecified drugs, medicaments and biological substances, intentional self-harm, initial encounter
[2024-06-09] MEDS: ARIPiprazole 5 MG TAB PO SCH (09:27)
[2024-06-09] MEDS: AMOXICILLIN/CLAVULANATE 875 MG TAB PO SCH (11:01)
[2024-06-09] MEDS: MUPIROCIN 2% OINT 22 GM TUBE TOP SCH (15:02)
[2024-06-09] MEDS: risperiDONE 1 MG TABLET PO SCH (20:45)
[2024-06-09] MEDS: LORazepam 1 MG TAB PO PRN (23:46)
--- NOTE | 2024-06-10 09:10 | Psychiatric Progress Note ---
Date of Service June 10, 2024 Impression / Recommendations Impression PETER ROSALES is a 28-year-old man who currently lives in [place], has a history of schizophrenia, and was admitted on 06/07/24 22:27 on a 201 voluntary but then switched to 302 involuntary commitment for psychosis and aggression and suicide attempt via polypharmacy ingestion. 302 commitment completed due to recent suicide attempt with ongoing psychosis and aggression and his inability to participate in any type of safety planning, he requires inpatient psychiatric hospitalization for safety and stabilization. Diagnostically consistent with unspecified psychosis with differential including schizophrenia vs schizoaffective disorder given psychomotor agitation and reports of recent poor sleep and suicide attempt vs MDD with psychotic features vs substance-induced or withdrawal (but unlikely as UDS negative and he denied any recent use except nicotine). Unclear what factors lead to his dismissal from his previous outpatient psychiatric provider. A: Slept a little more but still <6 hours, napping during the day today. Seems to be tolerating risperidone well so far. Slightly less paranoid today. Tolerated brief discussion about antipsychotic medication. Reviewed side effects including but not limited to: movement (TD, NMS), cardiac (QTc prolongation), and metabolic (stroke, insulin resistance) and necessity for fasting lipid and glucose labwork and AIMS done with score of 0. He agrees to labwork in the morning. Plan to file for 303 commitment given ongoing significant disorganization, thought blocking, and paranoia. MNPR-recent acute aggression and significant psychosis with paranoia Overall, I spent a total of 35 minutes on this case including meeting with the patient, reviewing the chart, nursing report, multidisciplinary team meeting, orders, and documentation. (1) Schizophrenia: (2) Suicide attempt by multiple drug overdose: (3) Unspecified psychosis not due to a substance or known physiological condition: Plan 06/10/2024: -Continue current medications and tx plan 06/09/2024: -Discontinue abilify -Start risperidone 1mg BID -Continue haldol 5mg BID prn po for psychosis/paranoia 06/08/2024: The patient was admitted to the [facility] ([facility]) on q15 min checks (behavioral with suicide precautions) for safety. The patient will participate in group, recreational, and milieu therapies and wi ll be offered additional individual and family sessions as clinically appropriate. -Start abilify 5mg daily po tomorrow -For behavioral emergency: IM Benadryl 50mg, IM haldol 5mg and IM ativan 2mg BID prn for aggression -Work on ensuring he has additional outpatient services-confirming new intake for case management and new outpatient psychiatry Inventory Assets Strengths: supportive relationships, trusts brother Needs: safety and stabilization, medication adjustment, additional coping skills, increased outpatient services Suicide Risk Level Suicide Risk Level: Moderate (q15 min suicide checks) (s/p suicide attempt and ongoing psychosis with paranoia but no evidence for self-harming behavior, denies SI and able to make needs know, no current evidence to suggest he's having or responding to command hallucinations) Risk Factors Assessment Male: Yes : Yes Do You Have Access To A Gun?: No (brother removing from home, will need to confirm this was done) Health Problems: No Mental Health Diagnoses: Yes Substance Use Disorders: No Previous Attempt: Yes (leading to admission) Previous Psychiatric Hospitalization: Yes Protective Factors Assessment Employed: Yes Stable Relationships: Yes Supportive Family: Yes Interval History Identifying Information PETER ROSALES is a 28-year-old man who currently lives in [place], has a history of schizophrenia, and was admitted on 06/07/24 22:27 on a 201 voluntary but then switched to 302 involuntary commitment for psychosis and aggression and suicide attempt via polypharmacy ingestion. Chief Complaint "Pretty sleepy". Review of Systems Sleep Information Total Hours of Sleep: 5.5 Meal Information Percent Meal Consumed - Breakfast: 100 Percent Meal Consumed - Lunch: 25 Percent Meal Consumed - Dinner: 100 Nutrition Comment: sleeping Subjective Subjective Patient was seen & assessed and interval progress reviewed with nursing and social work. Got a prn dose of haldol yesterday afternoon after he was banging the phone. Disorganized showering yesterday, he was hitting the call kim and couldn't figure out how to turn off the water. More paranoid with HS medications. Today largely isolative to his room but out for meals and interacting briefly with peers during lunch. Today reports feeling "pretty sleepy". No evidence of any other side effects to risperidone. He reports willingness to continue this and willingness to have labwork tomorrow morning. Physical Exam Psychiatric Orientation: alert, oriented to person and + guarded Apperance: + disheveled Eye Contact: + fair eye contact Motor Behavior: no abnormal motor movements Speech: + abnormal rate/rhythm/volume of speech (brief) Affect: + flat affect Mood: + irritable mood Thought Process: + thought blocking Thought Content: + paranoid Suicidal Thoughts: denies suicidal thoughts Hallucinations: + auditory hallucinations Cognition: recent memory grossly intact and remote memory grossly intact; + attention not intact Insight: + poor insight Judgment: + limited judgement Vital Signs (Past 24 Hours) Last Vital Signs Temp 36.8 C 06/10/24 06:47 Pulse 81 06/10/24 06:47 Resp 16 06/10/24 06:47 BP 91/60 L 06/10/24 06:47 Pulse Ox 95 06/07/24 22:43 O2 Del Method Room Air 06/07/24 22:43 Results & Data ([facility]) Current Inpatient Medications Current Inpatient Medications: Current Inpatient Medications Acetaminophen (Acetaminophen 325 Mg Tab) 650 mg PO Q4H PRN PRN Reason: Headache or Minor Fever Stop: 07/07/24 22:30 Last Admin: 06/08/24 19:18 Dose: 650 mg Al Hydrox/Mg Hydrox/Simethicone (Aluminum/Magnesium Susp 30 Ml Udc) 30 ml PO Q4H PRN PRN Reason: GI Upset Stop: 07/07/24 22:30 Amoxicillin/Clavulanate Potassium (Amoxicillin/Clavulanate 875 Mg Tab) 1 tab PO BID DOMINIK; Protocol Stop: 06/16/24 10:59 Last Admin: 06/09/24 20:45 Dose: 1 tab Bismuth Subsalicylate (Bismuth Subsalicylate 262 Mg Chew) 2 tab PO Q30M PRN PRN Reason: Loose Stool/Diarrhea Stop: 07/07/24 22:30 Diphenhydramine HCl (Diphenhydramine 50 Mg/Ml Vial) 50 mg IM BID PRN PRN Reason: aggression Stop: 07/08/24 09:13 Haloperidol (Haloperidol 5 Mg Tab) 5 mg PO BID PRN PRN Reason: Agitation/psychosis/paranoia Stop: 07/08/24 02:36 Last Admin: 06/09/24 16:47 Dose: 5 mg Haloperidol Lactate (Haloperidol Lactate 5 Mg/Ml 1 Ml Vial) 5 mg IM BID PRN PRN Reason: aggression Stop: 07/08/24 09:13 Hydroxyzine HCl (Hydroxyzine Hcl 25 Mg Tab) 50 mg PO HSZ PRN PRN Reason: Insomnia Stop: 07/07/24 22:30 Hydroxyzine HCl (Hydroxyzine Hcl 25 Mg Tab) 25 mg PO Q4H PRN PRN Reason: Anxiety Stop: 07/07/24 22:30 Lorazepam (Lorazepam 2 Mg/1 Ml Vial) 2 mg IM BID PRN PRN Reason: aggression Stop: 07/08/24 09:13 Lorazepam (Lorazepam 1 Mg Tab) 1 mg PO BID PRN PRN Reason: Agitation/restlessness Stop: 07/08/24 02:34 Last Admin: 06/09/24 23:46 Dose: 1 mg Magnesium Hydroxide (Magnesium Hydroxide Susp 30 Ml Udc) 30 ml PO DAILY PRN PRN Reason: Constipation Stop: 07/07/24 22:30 Miscellaneous (Remove Nicoderm Patch) 1 each N/A DAILY@0859 [facility] Stop: 07/08/24 08:58 Last Admin: 06/09/24 09:27 Dose: 1 each Mupirocin (Mupirocin 2% Oint 22 Gm Tube) 1 appln TOP TID [facility] Stop: 07/09/24 13:59 Last Admin: 06/09/24 20:45 Dose: 1 appln Nicotine (Nicotine 21 Mg/24 Hr Tdsy) 1 patch TD QAM [facility] Stop: 07/08/24 08:59 Last Admin: 06/09/24 09:27 Dose: 1 patch Nicotine Polacrilex (Nicotine Polacrilex 2 Mg Gum) 2 piece MT PRN PRN PRN Reason: Nicotine Withdrawal Symptoms Stop: 07/07/24 21:42 Last Admin: 06/09/24 20:55 Dose: 2 piece Risperidone (Risperidone 1 Mg Tablet) 1 mg PO BID [facility] Stop: 07/09/24 20:59 Last Admin: 06/09/24 20:45 Dose: 1 mg Sodium Chloride (Sodium Chloride 0.65% Na Soln 45 Ml ([place])) 1 - 2 sprays NA PRN PRN PRN Reason: Nasal Dryness/Congestion Stop: 07/07/24 22:30 Mental Health & Subst Abuse Tx Therapist Name of Therapist: n/a Fire Adjuster Name of Fire Adjuster: n/a Post Discharge Appointments Primary Care Physician Name Of Family Doctor/PCP: No PCP (2) Suicide attempt by multiple drug overdose Encounter type: initial encounter Qualified Code(s): T50.912A - Poisoning by multiple unspecified drugs, medicaments and biological substances, intentional self-harm, initial encounter
[2024-06-10] MEDS ORDERED: POLYETHYLENE (MIRALAX) 17 GM PACK PO PRN (19:53)
[2024-06-10] MEDS: DOCUSATE SODIUM 100 MG CAP PO SCH (20:01)
[2024-06-11 08:05] LABS: Chol HDL Ratio 3.3 (0-5)
--- NOTE | 2024-06-11 09:08 | Psychiatric Progress Note ---
Date of Service June 11, 2024 Impression / Recommendations Impression PETER ROSALES is a 28-year-old man who currently lives in [place], has a history of schizophrenia, and was admitted on 06/07/24 22:27 on a 201 voluntary but then switched to 302 involuntary commitment for psychosis and aggression and suicide attempt via polypharmacy ingestion. 302 commitment completed due to recent suicide attempt with ongoing psychosis and aggression and his inability to participate in any type of safety planning, he requires inpatient psychiatric hospitalization for safety and stabilization. Diagnostically consistent with unspecified psychosis with differential including schizophrenia vs schizoaffective disorder given psychomotor agitation and reports of recent poor sleep and suicide attempt vs MDD with psychotic features vs substance-induced or withdrawal (but unlikely as UDS negative and he denied any recent use except nicotine). Unclear what factors lead to his dismissal from his previous outpatient psychiatric provider. A: Ongoing paranoia and psychosis. Focused on bathroom habits and smells from his bathroom. Tolerating risperidone and less sedation today. Completed paperwork for 303 commitment, hearing schedule for tomorrow. Labwork reviewed and notable for low Vit D, normal HbA1c and fasting lipid panel. MNPR-recent acute aggression and significant psychosis with paranoia Overall, I spent a total of 55 minutes on this case including meeting with the patient, reviewing the chart, nursing report, multidisciplinary team meeting, orders, and documentation and completing 303 commitment paperwork. (1) Schizophrenia: (2) Suicide attempt by multiple drug overdose: (3) Unspecified psychosis not due to a substance or known physiological condition: Plan 06/11/2024: -Risperidone 0.5mg TID prn for psychosis/paranoia 06/10/2024: -Continue current medications and tx plan 06/09/2024: -Discontinue abilify -Start risperidone 1mg BID -Continue haldol 5mg BID prn po for psychosis/paranoia 06/08/2024: The patient was [facility] ([facility] inpatient mental health unit) on q15 min checks (behavioral with suicide precautions) for safety. The patient will participate in group, recreational, and milieu therapies and will be offered additional individual and family sessions as clinically appropriate. -Start abilify 5mg daily po tomorrow -For behavioral emergency: IM Benadryl 50mg, IM haldol 5mg and IM ativan 2mg BID prn for aggression -Work on ensuring he has additional outpatient services-confirming new intake for case management and new outpatient psychiatry Inventory Assets Strengths: supportive relationships, trusts brother Needs: safety and stabilization, medication adjustment, additional coping skills, increased outpatient services Suicide Risk Level Suicide Risk Level: Moderate (q15 min suicide checks) (s/p suicide attempt and ongoing psychosis with paranoia but no evidence for self-harming behavior, denies SI and able to make needs know, no current evidence to suggest he's having or responding to command hallucinations) Risk Factors Assessment Male: Yes : Yes Do You Have Access To A Gun?: No (brother removing from home, will need to confirm this was done) Health Problems: No Mental Health Diagnoses: Yes Substance Use Disorders: No Previous Attempt: Yes (leading to admission) Previous Psychiatric Hospitalization: Yes Protective Factors Assessment Employed: Yes Stable Relationships: Yes Supportive Family: Yes Interval History Identifying Information PETER ROSALES is a 28-year-old man who currently lives in [place], has a history of schizophrenia, and was admitted on 06/07/24 22:27 on a 201 voluntary but then switched to 302 involuntary commitment for psychosis and aggression and suicide attempt via polypharmacy ingestion. Chief Complaint "sort of ok". Review of Systems Sleep Information Total Hours of Sleep: 6 Meal Information Percent Meal Consumed - Breakfast: 100 Percent Meal Consumed - Lunch: 100 Percent Meal Consumed - Dinner: 100 Nutrition Comment: sleeping Subjective Subjective Patient was seen & assessed and interval progress reviewed with treatment team. Attended one group and rated his mood as "half normal". Had visitors. Played the keyboard last evening. Had prn haldol and ativan last evening. Today focused on "something really smelly" coming from his bathroom. Also focused on not having had a bowel movement in a few days. Received prn medications for constipation. Discussed plan for 303 commitment hearing tomorrow, he states that he doesn't want to participate. Physical Exam Psychiatric Orientation: alert, oriented to person and + guarded Apperance: + disheveled Eye Contact: + fair eye contact Motor Behavior: no abnormal motor movements Speech: + abnormal rate/rhythm/volume of speech (brief) Affect: + flat affect Mood: + irritable mood Thought Process: + thought blocking Thought Content: + paranoid Suicidal Thoughts: denies suicidal thoughts Hallucinations: + auditory hallucinations Cognition: recent memory grossly intact and remote memory grossly intact; + attention not intact Insight: + poor insight Judgment: + limited judgement Vital Signs (Past 24 Hours) Last Vital Signs Temp 36.9 C 06/11/24 06:00 Pulse 106 H 06/11/24 06:00 Resp 16 06/10/24 06:47 BP 113/74 06/11/24 06:00 Pulse Ox 95 06/07/24 22:43 O2 Del Method Room Air 06/11/24 06:00 Results & Data ([facility]) Laboratory Results Laboratory Results - last 24 hr 06/11/24 07:29 Estimat Average Glucose Pending Hemoglobin A1c Pending Triglycerides 98 Cholesterol 130 LDL Cholesterol, Calc 70 VLDL Cholesterol, Calc 20 HDL Cholesterol 40 Cholesterol/HDL Ratio 3.3 25-OH Vitamin D Total 10.1 L Current Inpatient Medications Current Inpatient Medications: Current Inpatient Medications Acetaminophen (Acetaminophen 325 Mg Tab) 650 mg PO Q4H PRN PRN Reason: Headache or Minor Fever Stop: 07/07/24 22:30 Last Admin: 06/08/24 19:18 Dose: 650 mg Al Hydrox/Mg Hydrox/Simethicone (Aluminum/Magnesium Susp 30 Ml Udc) 30 ml PO Q4H PRN PRN Reason: GI Upset Stop: 07/07/24 22:30 Amoxicillin/Clavulanate Potassium (Amoxicillin/Clavulanate 875 Mg Tab) 1 tab PO BID DOMINIK; Protocol Stop: 06/16/24 10:59 Last Admin: 06/10/24 21:09 Dose: 1 tab Bismuth Subsalicylate (Bismuth Subsalicylate 262 Mg Chew) 2 tab PO Q30M PRN PRN Reason: Loose Stool/Diarrhea Stop: 07/07/24 22:30 Diphenhydramine HCl (Diphenhydramine 50 Mg/Ml Vial) 50 mg IM BID PRN PRN Reason: aggression Stop: 07/08/24 09:13 Docusate Sodium (Docusate Sodium 100 Mg Cap) 100 mg PO BID DOMINIK Stop: 07/10/24 20:59 Last Admin: 06/10/24 20:01 Dose: 100 mg Haloperidol (Haloperidol 5 Mg Tab) 5 mg PO BID PRN PRN Reason: Agitation/psychosis/paranoia Stop: 07/08/24 02:36 Last Admin: 06/10/24 21:35 Dose: 5 mg Haloperidol Lactate (Haloperidol Lactate 5 Mg/Ml 1 Ml Vial) 5 mg IM BID PRN PRN Reason: aggression Stop: 07/08/24 09:13 Hydroxyzine HCl (Hydroxyzine Hcl 25 Mg Tab) 50 mg PO HSZ PRN PRN Reason: Insomnia Stop: 07/07/24 22:30 Hydroxyzine HCl (Hydroxyzine Hcl 25 Mg Tab) 25 mg PO Q4H PRN PRN Reason: Anxiety Stop: 07/07/24 22:30 Lorazepam (Lorazepam 2 Mg/1 Ml Vial) 2 mg IM BID PRN PRN Reason: aggression Stop: 07/08/24 09:13 Lorazepam (Lorazepam 1 Mg Tab) 1 mg PO BID PRN PRN Reason: Agitation/restlessness Stop: 07/08/24 02:34 Last Admin: 06/10/24 21:35 Dose: 1 mg Magnesium Hydroxide (Magnesium Hydroxide Susp 30 Ml Udc) 30 ml PO DAILY PRN PRN Reason: Constipation Stop: 07/07/24 22:30 Miscellaneous (Remove Nicoderm Patch) 1 each N/A DAILY@0859 [facility] Stop: 07/08/24 08:58 Last Admin: 06/10/24 09:49 Dose: 1 each Mupirocin (Mupirocin 2% Oint 22 Gm Tube) 1 appln TOP TID [facility] Stop: 07/09/24 13:59 Last Admin: 06/10/24 21:09 Dose: 1 appln Nicotine (Nicotine 21 Mg/24 Hr Tdsy) 1 patch TD QAM [facility] Stop: 07/08/24 08:59 Last Admin: 06/10/24 09:51 Dose: 1 patch Nicotine Polacrilex (Nicotine Polacrilex 2 Mg Gum) 2 piece MT PRN PRN PRN Reason: Nicotine Withdrawal Symptoms Stop: 07/07/24 21:42 Last Admin: 06/10/24 19:58 Dose: 2 piece Polyethylene Glycol (Polyethylene (Miralax) 17 Gm Pack) 17 gm PO DAILY PRN PRN Reason: Constipation Stop: 07/10/24 19:52 Risperidone (Risperidone 1 Mg Tablet) 1 mg PO BID [facility] Stop: 07/09/24 20:59 Last Admin: 06/10/24 21:09 Dose: 1 mg Sodium Chloride (Sodium Chloride 0.65% Na Soln 45 Ml ([place])) 1 - 2 sprays NA PRN PRN PRN Reason: Nasal Dryness/Congestion Stop: 07/07/24 22:30 Mental Health & Subst Abuse Tx Therapist Name of Therapist: n/a Cartography Professor Name of Cartography Professor: n/a Post Discharge Appointments Primary Care Physician Name Of Family Doctor/PCP: No PCP (2) Suicide attempt by multiple drug overdose Encounter type: initial encounter Qualified Code(s): T50.912A - Poisoning by multiple unspecified drugs, medicaments and biological substances, intentional self-harm, initial encounter
[2024-06-11 10:06] LABS: Estimated Average Glucose 103 mg/dl; Hemoglobin A1C 5.2 % (4.5-5.6)
[2024-06-11] MEDS ORDERED: haloperidoL 5 MG TAB PO PRN (12:21)
[2024-06-11] MEDS ORDERED: risperiDONE 0.25 MG TAB PO SCH (14:00)
[2024-06-11] MEDS: MAGNESIUM HYDROXIDE SUSP 30 ML UDC PO PRN (15:20)
[2024-06-11] MEDS: risperiDONE 0.25 MG TAB PO PRN (17:51)
--- NOTE | 2024-06-12 09:04 | Psychiatric Progress Note ---
Date of Service June 12, 2024 Impression / Recommendations Impression PETER ROSALES is a 28-year-old man who currently lives in [place], has a history of schizophrenia, and was admitted on 06/07/24 22:27 on a 201 voluntary but then switched to 302 involuntary commitment for psychosis and aggression and suicide attempt via polypharmacy ingestion. 302 commitment completed due to recent suicide attempt with ongoing psychosis and aggression and his inability to participate in any type of safety planning, he requires inpatient psychiatric hospitalization for safety and stabilization. Diagnostically consistent with unspecified psychosis with differential including schizophrenia vs schizoaffective disorder given psychomotor agitation and reports of recent poor sleep and suicide attempt vs MDD with psychotic features vs substance-induced or withdrawal (but unlikely as UDS negative and he denied any recent use except nicotine). Unclear what factors lead to his dismissal from his previous outpatient psychiatric provider. A: Ongoing paranoia and psychosis with thought blocking. Today less fixated on the bathroom and reports he did have a bowel movement. He slept better last night though still reports feeling tired this morning. Will adjust risperidone so he gets more of the dose at HS and lower the morning dose to see if this lessens his fatigue. 303 commitment granted MNPR-recent acute aggression and significant psychosis with paranoia Overall, I spent a total of 60 minutes on this case including meeting with the patient, reviewing the chart, nursing report, multidisciplinary team meeting, orders, and documentation and participating in 303 hearing. (1) Schizophrenia: (2) Suicide attempt by multiple drug overdose: (3) Unspecified psychosis not due to a substance or known physiological condition: Plan 06/12/2024: -Adjust risperidone timing to 0.5mg qAM and 1.5mg HS and continue with risperidone prn. 06/11/2024: -Risperidone 0.5mg TID prn for psychosis/paranoia 06/10/2024: -Continue current medications and tx plan 06/09/2024: -Discontinue abilify -Start risperidone 1mg BID -Continue haldol 5mg BID prn po for psychosis/paranoia 06/08/2024: The patient was admitted to the [facility] ([facility]) on q15 min checks (behavioral with suicide precautions) for safety. The patient will participate in group, recreational, and milieu therapies and will be offered additional individual and family sessions as clinically appropriate. -Start abilify 5mg daily po tomorrow -For behavioral emergency: IM Benadryl 50mg, IM haldol 5mg and IM ativan 2mg BID prn for aggression -Work on ensuring he has additional outpatient services-confirming new intake for case management and new outpatient psychiatry Inventory Assets Strengths: supportive relationships, trusts brother Needs: safety and stabilization, medication adjustment, additional coping skills, inc reased outpatient services Suicide Risk Level Suicide Risk Level: Moderate (q15 min suicide checks) (s/p suicide attempt and ongoing psychosis with paranoia but no evidence for self-harming behavior, denies SI and able to make needs know, no current evidence to suggest he's having or responding to command hallucinations) Risk Factors Assessment Male: Yes : Yes Do You Have Access To A Gun?: No (brother removing from home, will need to confirm this was done) Health Problems: No Mental Health Diagnoses: Yes Substance Use Disorders: No Previous Attempt: Yes (leading to admission) Previous Psychiatric Hospitalization: Yes Protective Factors Assessment Employed: Yes Stable Relationships: Yes Supportive Family: Yes Interval History Identifying Information PETER ROSALES is a 28-year-old man who currently lives in [place], has a history of schizophrenia, and was admitted on 06/07/24 22:27 on a 201 voluntary but then switched to 302 involuntary commitment for psychosis and aggression and suicide attempt via polypharmacy ingestion. Chief Complaint "Alright". Review of Systems Sleep Information Total Hours of Sleep: 8 Meal Information Percent Meal Consumed - Breakfast: 100 Percent Meal Consumed - Lunch: 50 Percent Meal Consumed - Dinner: 100 Nutrition Comment: sleeping Subjective Subjective Patient was seen & assessed and interval progress reviewed with nursing and social work. Required a lot of reassurance from nurses. Reported racing thoughts and was disorganized. At 5pm got prn risperidone and ativan. Tried to attend group but couldn't tolerate it and left. Today he reports his mood is "alright". He's lying in bed, states he feels tired and that "something is going on in my mind, I can't focus". He's not sure if his bathroom still smells. Blood pressure a little low this morning, he denies symptoms related to this. He doesn't want to participate in [employer]. Physical Exam Psychiatric Orientation: alert, oriented to person and + guarded Apperance: + disheveled Eye Contact: + fair eye contact Motor Behavior: no abnormal motor movements Speech: + abnormal rate/rhythm/volume of speech (brief) Affect: + flat affect Mood: + irritable mood Thought Process: + thought blocking Thought Content: + paranoid Suicidal Thoughts: denies suicidal thoughts Hallucinations: + auditory hallucinations Cognition: recent memory grossly intact and remote memory grossly intact; + attention not intact Insight: + poor insight Judgment: + limited judgement Vital Signs (Past 24 Hours) Last Vital Signs Temp 36.9 C 06/11/24 06:00 Pulse 101 H 06/12/24 06:54 Resp 16 06/10/24 06:47 BP 98/67 L 06/12/24 06:55 Pulse Ox 95 06/07/24 22:43 O2 Del Method Room Air 06/11/24 06:00 Results & Data ([facility]) Laboratory Results Laboratory Results - last 24 hr 06/11/24 07:29 Estimat Average Glucose 103 Hemoglobin A1c 5.2 Current Inpatient Medications Current Inpatient Medications: Current Inpatient Medications Acetaminophen (Acetaminophen 325 Mg Tab) 650 mg PO Q4H PRN PRN Reason: Headache or Minor Fever Stop: 07/07/24 22:30 Last Admin: 06/08/24 19:18 Dose: 650 mg Al Hydrox/Mg Hydrox/Simethicone (Aluminum/Magnesium Susp 30 Ml Udc) 30 ml PO Q4H PRN PRN Reason: GI Upset Stop: 07/07/24 22:30 Amoxicillin/Clavulanate Potassium (Amoxicillin/Clavulanate 875 Mg Tab) 1 tab PO BID DOMINIK; Protocol Stop: 06/16/24 10:59 Last Admin: 06/11/24 20:39 Dose: 1 tab Bismuth Subsalicylate (Bismuth Subsalicylate 262 Mg Chew) 2 tab PO Q30M PRN PRN Reason: Loose Stool/Diarrhea Stop: 07/07/24 22:30 Diphenhydramine HCl (Diphenhydramine 50 Mg/Ml Vial) 50 mg IM BID PRN PRN Reason: aggression Stop: 07/08/24 09:13 Docusate Sodium (Docusate Sodium 100 Mg Cap) 100 mg PO BID DOMINIK Stop: 07/10/24 20:59 Last Admin: 06/11/24 20:42 Dose: 100 mg Haloperidol (Haloperidol 5 Mg Tab) 5 mg PO BID PRN PRN Reason: Agitation Stop: 07/08/24 02:36 Haloperidol Lactate (Haloperidol Lactate 5 Mg/Ml 1 Ml Vial) 5 mg IM BID PRN PRN Reason: aggression Stop: 07/08/24 09:13 Hydroxyzine HCl (Hydroxyzine Hcl 25 Mg Tab) 50 mg PO HSZ PRN PRN Reason: Insomnia Stop: 07/07/24 22:30 Hydroxyzine HCl (Hydroxyzine Hcl 25 Mg Tab) 25 mg PO Q4H PRN PRN Reason: Anxiety Stop: 07/07/24 22:30 Lorazepam (Lorazepam 2 Mg/1 Ml Vial) 2 mg IM BID PRN PRN Reason: aggression Stop: 07/08/24 09:13 Lorazepam (Lorazepam 1 Mg Tab) 1 mg PO BID PRN PRN Reason: Agitation/restlessness Stop: 07/08/24 02:34 Last Admin: 06/11/24 17:51 Dose: 1 mg Magnesium Hydroxide (Magnesium Hydroxide Susp 30 Ml Udc) 30 ml PO DAILY PRN PRN Reason: Constipation Stop: 07/07/24 22:30 Last Admin: 06/11/24 15:20 Dose: 30 ml Miscellaneous (Remove Nicoderm Patch) 1 each N/A DAILY@0859 [facility] Stop: 07/08/24 08:58 Last Admin: 06/11/24 09:13 Dose: 1 each Mupirocin (Mupirocin 2% Oint 22 Gm Tube) 1 appln TOP TID [facility] Stop: 07/09/24 13:59 Last Admin: 06/11/24 20:39 Dose: 1 appln Nicotine (Nicotine 21 Mg/24 Hr Tdsy) 1 patch TD QAM [facility] Stop: 07/08/24 08:59 Last Admin: 06/11/24 09:14 Dose: 1 patch Nicotine Polacrilex (Nicotine Polacrilex 2 Mg Gum) 2 piece MT PRN PRN PRN Reason: Nicotine Withdrawal Symptoms Stop: 07/07/24 21:42 Last Admin: 06/10/24 19:58 Dose: 2 piece Polyethylene Glycol (Polyethylene (Miralax) 17 Gm Pack) 17 gm PO DAILY PRN PRN Reason: Constipation Stop: 07/10/24 19:52 Risperidone (Risperidone 1 Mg Tablet) 1 mg PO BID [facility] Stop: 07/09/24 20:59 Last Admin: 06/11/24 20:39 Dose: 1 mg Risperidone (Risperidone 0.25 Mg Tab) 0.5 mg PO TID PRN PRN Reason: psychosis/paranoia Stop: 07/11/24 13:59 Last Admin: 06/11/24 17:51 Dose: 0.5 mg Sodium Chloride (Sodium Chloride 0.65% Na Soln 45 Ml ([place])) 1 - 2 sprays NA PRN PRN PRN Reason: Nasal Dryness/Congestion Stop: 07/07/24 22:30 Vitamin D (Cholecalciferol 125 Mcg (5,000 Units) Tab) 125 mcg PO QAM [facility] Stop: 07/12/24 08:59 Mental Health & Subst Abuse Tx Therapist Name of Therapist: n/a Lifeguard Name of Lifeguard: n/a Post Discharge Appointments Primary Care Physician Name Of Family Doctor/PCP: No PCP (2) Suicide attempt by multiple drug overdose Encounter type: initial encounter Qualified Code(s): T50.912A - Poisoning by multiple unspecified drugs, medicaments and biological substances, intentional self-harm, initial encounter
[2024-06-12] MEDS: CHOLECALCIFEROL 125 MCG (5,000 UNITS) TAB PO SCH (09:44)
[2024-06-12] MEDS: hydrOXYzine HCl 25 MG TAB PO PRN (17:43)
[2024-06-12] MEDS: risperiDONE 0.5 MG TABLET PO SCH (21:49)
[2024-06-13] MEDS: risperiDONE 0.5 MG TABLET PO SCH (09:00)
--- NOTE | 2024-06-13 09:25 | Psychiatric Progress Note ---
Date of Service June 13, 2024 Impression / Recommendations Impression PETER ROSALES is a 28-year-old man who currently lives in [place], has a history of schizophrenia, and was admitted on 06/07/24 22:27 on a 201 voluntary but then switched to 302 involuntary commitment for psychosis and aggression and suicide attempt via polypharmacy ingestion. 302 commitment completed due to recent suicide attempt with ongoing psychosis and aggression and his inability to participate in any type of safety planning, he requires inpatient psychiatric hospitalization for safety and stabilization. Now on 303 commitment which expires 07/02/2024. Diagnostically consistent with unspecified psychosis with differential including schizophrenia vs schizoaffective disorder given psychomotor agitation and reports of recent poor sleep and suicide attempt vs MDD with psychotic features vs substance-induced or withdrawal (but unlikely as UDS negative and he denied any recent use except nicotine). Unclear what factors lead to his dismissal from his previous outpatient psychiatric provider. A: Ongoing paranoia and psychosis with some thought blocking. Periods of somatic delusions about his bowel habits/bathroom/smells. Mood lability seems to worsen in the late afternoon with increased voices, finding risperidone prn beneficial. Less sedated this morning with adjusted risperidone dosing schedule. MNPR-recent acute aggression and significant psychosis with paranoia Overall, I spent a total of 35 minutes on this case including meeting with the patient, reviewing the chart, nursing report, multidisciplinary team meeting, orders, and documentation. (1) Suicide attempt by multiple drug overdose: (2) Schizophrenia: (3) Unspecified psychosis not due to a substance or known physiological condition: Plan 06/13/2024: Continue current medications and tx plan 06/12/2024: -Adjust risperidone timing to 0.5mg qAM and 1.5mg HS and continue with risperidone prn. 06/11/2024: -Risperidone 0.5mg TID prn for psychosis/paranoia 06/10/2024: -Continue current medications and tx plan 06/09/2024: -Discontinue abilify -Start risperidone 1mg BID -Continue haldol 5mg BID prn po for psychosis/paranoia 06/08/2024: The patient was admitted to the [facility] ([facility] mental health unit) on q15 min checks (behavioral with suicide precautions) for safety. The patient will participate in group, recreational, and milieu therapies and will be offered additional individual and family sessions as clinically appropriate. -Start abilify 5mg daily po tomorrow -For behavioral emergency: IM Benadryl 50mg, IM haldol 5mg and IM ativan 2mg BID prn for aggression -Work on ensuring he has additional outpatient services-confirming new intake for case management and new outpatient psychiatry Inventory Assets Strengths: supportive relationships, trusts brother Needs: safety and stabilization, medication adjustment, additional coping skills, increased outpatient services Suicide Risk Level Suicide Risk Level: Moderate (q15 min suicide checks) (s/p suicide attempt and ongoing psychosis with paranoia but no evidence for self-harming behavior, denies SI and able to make needs know, no current evidence to suggest he's having or responding to command hallucinations) Risk Factors Assessment Male: Yes : Yes Do You Have Access To A Gun?: No (brother removing from home, will need to confirm this was done) Health Problems: No Mental Health Diagnoses: Yes Substance Use Disorders: No Previous Attempt: Yes (leading to admission) Previous Psychiatric Hospitalization: Yes Protective Factors Assessment Employed: Yes Stable Relationships: Yes Supportive Family: Yes Interval History Identifying Information PETER ROSALES is a 28-year-old man who currently lives in [place], has a history of schizophrenia, and was admitted on 06/07/24 22:27 on a 201 voluntary but then switched to 302 involuntary commitment for psychosis and aggression and suicide attempt via polypharmacy ingestion. Chief Complaint "I'm ok, what's [employer]?". Review of Systems Sleep Information Total Hours of Sleep: 7.25 Meal Information Percent Meal Consumed - Breakfast: 100 Percent Meal Consumed - Lunch: 25 Percent Meal Consumed - Dinner: 25 Nutrition Comment: sleeping Subjective Subjective Patient was seen & assessed and interval progress reviewed with treatment team. Pretty fixated on his bowel movements last evening and then was paranoid that someone had his social security number and was responding to internal stimuli. He reported SI due to increased voices. He was reluctant to take medication, needed to see the package and then believed that the medication would kill him but then did accept prn risperidone and ativan. His brothers visited last evening. He then was able to attend community meeting and rated his mood as "tired". Today reports his mood is "ok". Awake and around peers but disorganized, standing on chairs. Trying to understand what case management means. Tells me he is still having the voices but "not so bad" and he feels the risperidone does help. Wonders "why have I have been really cold today?". He denies any symptoms of cold/flu. Denies SI this morning. Physical Exam Psychiatric Orientation: alert, oriented to person and + guarded Apperance: + disheveled Eye Contact: + fair eye contact Motor Behavior: no abnormal motor movements Speech: normal rate/rhythm/volume of speech Affect: + depressed affect, + flat affect, + labile affect and + irritable affect Mood: + irritable mood Thought Process: + thought blocking and + tangential thought process Thought Content: + paranoid and + delusions Suicidal Thoughts: denies suicidal thoughts Hallucinations: + auditory hallucinations Cognition: recent memory grossly intact and remote memory grossly intact; + attention not intact Insight: + poor insight Judgment: + limited judgement Vital Signs (Past 24 Hours) Last Vital Signs Temp 36.5 C 06/13/24 06:00 Pulse 75 06/13/24 06:36 Resp 16 06/13/24 06:00 BP 101/66 06/13/24 06:36 Pulse Ox 96 06/13/24 06:00 O2 Del Method Room Air 06/13/24 06:00 Results & Data (U) Current Inpatient Medications Current Inpatient Medications: Current Inpatient Medications Acetaminophen (Acetaminophen 325 Mg Tab) 650 mg PO Q4H PRN PRN Reason: Headache or Minor Fever Stop: 07/07/24 22:30 Last Admin: 06/08/24 19:18 Dose: 650 mg Al Hydrox/Mg Hydrox/Simethicone (Aluminum/Magnesium Susp 30 Ml Udc) 30 ml PO Q4H PRN PRN Reason: GI Upset Stop: 07/07/24 22:30 Amoxicillin/Clavulanate Potassium (Amoxicillin/Clavulanate 875 Mg Tab) 1 tab PO BID [facility]INIK; Protocol Stop: 06/16/24 10:59 Last Admin: 06/13/24 08:58 Dose: 1 tab Bismuth Subsalicylate (Bismuth Subsalicylate 262 Mg Chew) 2 tab PO Q30M PRN PRN Reason: Loose Stool/Diarrhea Stop: 07/07/24 22:30 Diphenhydramine HCl (Diphenhydramine 50 Mg/Ml Vial) 50 mg IM BID PRN PRN Reason: aggression Stop: 07/08/24 09:13 Docusate Sodium (Docusate Sodium 100 Mg Cap) 100 mg PO BID [facility] Stop: 07/10/24 20:59 Last Admin: 06/13/24 09:07 Dose: Not Given Haloperidol (Haloperidol 5 Mg Tab) 5 mg PO BID PRN PRN Reason: Agitation Stop: 07/08/24 02:36 Haloperidol Lactate (Haloperidol Lactate 5 Mg/Ml 1 Ml Vial) 5 mg IM BID PRN PRN Reason: aggression Stop: 07/08/24 09:13 Hydroxyzine HCl (Hydroxyzine Hcl 25 Mg Tab) 50 mg PO HSZ PRN PRN Reason: Insomnia Stop: 07/07/24 22:30 Hydroxyzine HCl (Hydroxyzine Hcl 25 Mg Tab) 25 mg PO Q4H PRN PRN Reason: Anxiety Stop: 07/07/24 22:30 Last Admin: 06/12/24 17:43 Dose: 25 mg Lorazepam (Lorazepam 2 Mg/1 Ml Vial) 2 mg IM BID PRN PRN Reason: aggression Stop: 07/08/24 09:13 Lorazepam (Lorazepam 1 Mg Tab) 1 mg PO BID PRN PRN Reason: Agitation/restlessness Stop: 07/08/24 02:34 Last Admin: 06/12/24 16:38 Dose: 1 mg Magnesium Hydroxide (Magnesium Hydroxide Susp 30 Ml Udc) 30 ml PO DAILY PRN PRN Reason: Constipation Stop: 07/07/24 22:30 Last Admin: 06/11/24 15:20 Dose: 30 ml Miscellaneous (Remove Nicoderm Patch) 1 each N/A DAILY@0859 [facility] Stop: 07/08/24 08:58 Last Admin: 06/13/24 09:07 Dose: Not Given Mupirocin (Mupirocin 2% Oint 22 Gm Tube) 1 appln TOP TID [facility] Stop: 07/09/24 13:59 Last Admin: 06/13/24 09:06 Dose: Not Given Nicotine (Nicotine 21 Mg/24 Hr Tdsy) 1 patch TD QAM [facility] Stop: 07/08/24 08:59 Last Admin: 06/13/24 09:08 Dose: 1 patch Nicotine Polacrilex (Nicotine Polacrilex 2 Mg Gum) 2 piece MT PRN PRN PRN Reason: Nicotine Withdrawal Symptoms Stop: 07/07/24 21:42 Last Admin: 06/12/24 19:30 Dose: 2 piece Polyethylene Glycol (Polyethylene (Miralax) 17 Gm Pack) 17 gm PO DAILY PRN PRN Reason: Constipation Stop: 07/10/24 19:52 Risperidone (Risperidone 0.25 Mg Tab) 0.5 mg PO TID PRN PRN Reason: psychosis/paranoia Stop: 07/11/24 13:59 Last Admin: 06/12/24 16:39 Dose: 0.5 mg Risperidone (Risperidone 0.5 Mg Tablet) 0.5 mg PO QAM [facility] Stop: 07/13/24 08:59 Last Admin: 06/13/24 09:00 Dose: 0.5 mg Risperidone (Risperidone 0.5 Mg Tablet) 1.5 mg PO HS [facility] Stop: 07/12/24 21:59 Last Admin: 06/12/24 21:49 Dose: 1.5 mg Sodium Chloride (Sodium Chloride 0.65% Na Soln 45 Ml ([place])) 1 - 2 sprays NA PRN PRN PRN Reason: Nasal Dryness/Congestion Stop: 07/07/24 22:30 Vitamin D (Cholecalciferol 125 Mcg (5,000 Units) Tab) 125 mcg PO QAM [facility] Stop: 07/12/24 08:59 Last Admin: 06/13/24 08:58 Dose: 125 mcg Mental Health & Subst Abuse Tx Therapist Name of Therapist: n/a Automotive Lube Technician Name of Automotive Lube Technician: n/a Post Discharge Appointments Primary Care Physician Name Of Family Doctor/PCP: No PCP (1) Suicide attempt by multiple drug overdose Encounter type: initial encounter Qualified Code(s): T50.912A - Poisoning by multiple unspecified drugs, medicaments and biological substances, intentional self-harm, initial encounter
[2024-06-14] MEDS ORDERED: risperiDONE 0.5 MG TABLET PO PRN (05:41)
[2024-06-14] MEDS: risperiDONE 0.25 MG TAB PO SCH (14:23)
--- NOTE | 2024-06-14 16:39 | Psychiatric Progress Note ---
Date of Service June 14, 2024 Impression / Recommendations Impression PETER ROSALES is a 28-year-old man who currently lives in [place], has a history of schizophrenia, and was admitted on 06/07/24 22:27 on a 201 voluntary but then switched to 302 involuntary commitment for psychosis and aggression and suicide attempt via polypharmacy ingestion. 302 commitment completed due to recent suicide attempt with ongoing psychosis and aggression and his inability to participate in any type of safety planning, he requires inpatient psychiatric hospitalization for safety and stabilization. Now on 303 commitment which expires 07/02/2024. Diagnostically consistent with unspecified psychosis with differential including schizophrenia vs schizoaffective disorder given psychomotor agitation and reports of recent poor sleep and suicide attempt vs MDD with psychotic features vs substance-induced or withdrawal (but unlikely as UDS negative and he denied any recent use except nicotine). Unclear what factors lead to his dismissal from his previous outpatient psychiatric provider. A: Concern for residual psychosis and will optimize risperidone dose. Patient is future oriented to engage in case management. Recent delusional complaints, none presented today. Concern for pre-existing intellectual disability. MNPR-recent acute aggression and significant psychosis with paranoia Overall, I spent a total of 40 minutes on this case including meeting with the patient, reviewing the chart, nursing report, multidisciplinary team meeting, orders, and documentation. (1) Suicide attempt by multiple drug overdose: (2) Schizophrenia: (3) Unspecified psychosis not due to a substance or known physiological condition: (4) Intellectual disability: Plan 06/14/2024: Add additional dose of risperidone 0.5 mg in the afternoon. Increase nightly risperidone to 2mg HS. 06/13/2024: Continue current medications and tx plan 06/12/2024: -Adjust risperidone timing to 0.5mg qAM and 1.5mg HS and continue with risperidone prn. 06/11/2024: -Risperidone 0.5mg TID prn for psychosis/paranoia 06/10/2024: -Continue current medications and tx plan 06/09/2024: -Discontinue abilify -Start risperidone 1mg BID -Continue haldol 5mg BID prn po for psychosis/paranoia 06/08/2024: The patient was admitted to the [facility] ([facility] health unit) on q15 min checks (behavioral with suicide precautions) for safety. The patient will participate in group, recreational, and milieu therapies and will be offered additional individual and family sessions as clinically appropriate. -Start abilify 5mg daily po tomorrow -For behavioral emergency: IM Benadryl 50mg, IM haldol 5mg and IM ativan 2mg BID prn for aggression -Work on ensuring he has additional outpatient services-confirming new intake for case management and new outpatient psychiatry Inventory Assets Strengths: supportive relationships, trusts brother Needs: safety and stabilization, medication adjustment, additional coping skills, increased outpatient services Suicide Risk Level Suicide Risk Level: Moderate (q15 min suicide checks) (s/p suicide attempt and ongoing psychosis with paranoia but no evidence for self-harming behavior, denies SI and able to make needs know, no current evidence to suggest he's having or responding to command hallucinations) Risk Factors Assessment Male: Yes : Yes Do You Have Access To A Gun?: No (brother removing from home, will need to confirm this was done) Health Problems: No Mental Health Diagnoses: Yes Substance Use Disorders: No Previous Attempt: Yes (leading to admission) Previous Psychiatric Hospitalization: Yes Protective Factors Assessment Employed: Yes Stable Relationships: Yes Supportive Family: Yes Interval History Identifying Information PETER ROSALES is a 28-year-old man who currently lives in [place], has a history of schizophrenia, and was admitted on 06/07/24 22:27 on a 201 voluntary but then switched to 302 involuntary commitment for psychosis and aggression and suicide attempt via polypharmacy ingestion. Chief Complaint Psychosis Review of Systems Sleep Information Total Hours of Sleep: 6.5 Meal Information Percent Meal Consumed - Breakfast: 100 Percent Meal Consumed - Lunch: 75 Percent Meal Consumed - Dinner: 100 Nutrition Comment: sleeping Subjective Subjective Patient was seen & assessed and interval progress reviewed with treatment team nursing and social work Patient reports feeling safe in the hospital. Complains of intermittent paranoid thoughts. Rates voices at 3.5 out of 10. In the past they have instructed self-harm. Sometimes the voices are "outside of the head". Patient reports taking Augmentin for past wound on his scalp and reports it has improved. Has not taken risperidone in the past. Reports past Latuda and "happy pills". Says he can go back to his mothers upon discharge. Is sleeping well. Was educated about what a case loader operator can do for him. Reports taking special classes and primary school for reading, writing, and math. Physical Exam Mental Examination Appearance: Disheveled Eye Contact: Maintains Eye Contact Motor Behavior: Tics and Slowed Speech: Soft Mood: Euthymic Affect: Nervous Thought Process: Slowed Thinking Insight: Poor Judgement: Poor Vital Signs (Past 24 Hours) Last Vital Signs Temp 36.7 C 06/14/24 06:20 Pulse 86 06/14/24 06:20 Resp 16 06/14/24 06:20 BP 100/66 06/14/24 06:20 Pulse Ox 96 06/13/24 06:00 O2 Del Method Room Air 06/13/24 06:00 Results & Data ([facility]) Current Inpatient Medications Current Inpatient Medications: Current Inpatient Medications Acetaminophen (Acetaminophen 325 Mg Tab) 650 mg PO Q4H PRN PRN Reason: Headache or Minor Fever Stop: 07/07/24 22:30 Last Admin: 06/08/24 19:18 Dose: 650 mg Al Hydrox/Mg Hydrox/Simethicone (Aluminum/Magnesium Susp 30 Ml Udc) 30 ml PO Q4H PRN PRN Reason: GI Upset Stop: 07/07/24 22:30 Amoxicillin/Clavulanate Potassium (Amoxicillin/Clavulanate 875 Mg Tab) 1 tab PO BID [facility]; Protocol Stop: 06/16/24 10:59 Last Admin: 06/14/24 09:09 Dose: 1 tab Bismuth Subsalicylate (Bismuth Subsalicylate 262 Mg Chew) 2 tab PO Q30M PRN PRN Reason: Loose Stool/Diarrhea Stop: 07/07/24 22:30 Diphenhydramine HCl (Diphenhydramine 50 Mg/Ml Vial) 50 mg IM BID PRN PRN Reason: aggression Stop: 07/08/24 09:13 Docusate Sodium (Docusate Sodium 100 Mg Cap) 100 mg PO BID [facility] Stop: 07/10/24 20:59 Last Admin: 06/14/24 09:12 Dose: Not Given Haloperidol (Haloperidol 5 Mg Tab) 5 mg PO BID PRN PRN Reason: Agitation Stop: 07/08/24 02:36 Haloperidol Lactate (Haloperidol Lactate 5 Mg/Ml 1 Ml Vial) 5 mg IM BID PRN PRN Reason: aggression Stop: 07/08/24 09:13 Hydroxyzine HCl (Hydroxyzine Hcl 25 Mg Tab) 50 mg PO HSZ PRN PRN Reason: Insomnia Stop: 07/07/24 22:30 Hydroxyzine HCl (Hydroxyzine Hcl 25 Mg Tab) 25 mg PO Q4H PRN PRN Reason: Anxiety Stop: 07/07/24 22:30 Last Admin: 06/12/24 17:43 Dose: 25 mg Lorazepam (Lorazepam 2 Mg/1 Ml Vial) 2 mg IM BID PRN PRN Reason: aggression Stop: 07/08/24 09:13 Lorazepam (Lorazepam 1 Mg Tab) 1 mg PO BID PRN PRN Reason: Agitation/restlessness Stop: 07/08/24 02:34 Last Admin: 06/13/24 15:59 Dose: 1 mg Magnesium Hydroxide (Magnesium Hydroxide Susp 30 Ml Udc) 30 ml PO DAILY PRN PRN Reason: Constipation Stop: 07/07/24 22:30 Last Admin: 06/11/24 15:20 Dose: 30 ml Miscellaneous (Remove Nicoderm Patch) 1 each N/A DAILY@0859 [facility] Stop: 07/08/24 08:58 Last Admin: 06/14/24 09:11 Dose: Not Given Mupirocin (Mupirocin 2% Oint 22 Gm Tube) 1 appln TOP TID [facility] Stop: 07/09/24 13:59 Last Admin: 06/14/24 13:00 Dose: Not Given Nicotine (Nicotine 21 Mg/24 Hr Tdsy) 1 patch TD QAM [facility] Stop: 07/08/24 08:59 Last Admin: 06/14/24 09:19 Dose: 1 patch Nicotine Polacrilex (Nicotine Polacrilex 2 Mg Gum) 2 piece MT PRN PRN PRN Reason: Nicotine Withdrawal Symptoms Stop: 07/07/24 21:42 Last Admin: 06/14/24 11:59 Dose: 1 piece Polyethylene Glycol (Polyethylene (Miralax) 17 Gm Pack) 17 gm PO DAILY PRN PRN Reason: Constipation Stop: 07/10/24 19:52 Risperidone (Risperidone 0.5 Mg Tablet) 0.5 mg PO QAM [facility] Stop: 07/13/24 08:59 Last Admin: 06/14/24 09:12 Dose: 0.5 mg Risperidone (Risperidone 0.5 Mg Tablet) 1.5 mg PO HS [facility] Stop: 07/12/24 21:59 Last Admin: 06/13/24 21:14 Dose: 1.5 mg Risperidone (Risperidone 0.5 Mg Tablet) 0.5 mg PO TID PRN PRN Reason: psychosis/paranoia Stop: 07/14/24 05:40 Risperidone (Risperidone 0.25 Mg Tab) 0.5 mg PO DAILY@1400 [facility] Stop: 07/14/24 13:59 Last Admin: 06/14/24 14:23 Dose: 0.5 mg Sodium Chloride (Sodium Chloride 0.65% Na Soln 45 Ml ([place])) 1 - 2 sprays NA PRN PRN PRN Reason: Nasal Dryness/Congestion Stop: 07/07/24 22:30 Vitamin D (Cholecalciferol 125 Mcg (5,000 Units) Tab) 125 mcg PO QAM [facility] Stop: 07/12/24 08:59 Last Admin: 06/14/24 09:10 Dose: 125 mcg Mental Health & Subst Abuse Tx Therapist Name of Therapist: n/a Vice President Tax Name of Vice President Tax: n/a Post Discharge Appointments Primary Care Physician Name Of Family Doctor/PCP: No PCP (1) Suicide attempt by multiple drug overdose Encounter type: initial encounter Qualified Code(s): T50.912A - Poisoning by multiple unspecified drugs, medicaments and biological substances, intentional self-harm, initial encounter
[2024-06-14] MEDS: risperiDONE 2 MG TABLET PO SCH (21:51)
[2024-06-14] MEDS: hydrOXYzine HCl 25 MG TAB PO PRN (23:14)
--- NOTE | 2024-06-15 15:14 | Psychiatric Progress Note ---
Date of Service June 15, 2024 Impression / Recommendations Impression PETER ROSALES is a 28-year-old man who currently lives in [place], has a history of schizophrenia, and was admitted on 06/07/24 22:27 on a 201 voluntary but then switched to 302 involuntary commitment for psychosis and aggression and suicide attempt via polypharmacy ingestion. 302 commitment completed due to recent suicide attempt with ongoing psychosis and aggression and his inability to participate in any type of safety planning, he requires inpatient psychiatric hospitalization for safety and stabilization. Now on 303 commitment which expires 07/02/2024. Diagnostically consistent with unspecified psychosis with differential including schizophrenia vs schizoaffective disorder given psychomotor agitation and reports of recent poor sleep and suicide attempt vs MDD with psychotic features vs substance-induced or withdrawal (but unlikely as UDS negative and he denied any recent use except nicotine). Unclear what factors lead to his dismissal from his previous outpatient psychiatric provider. A: Psychosis is resolving with improved thought process. Recent paranoia. Excess sedation from PRNs and will reduce dose today. No signs of EPS on exam. Future oriented. MNPR-recent acute aggression and significant psychosis with paranoia Overall, I spent a total of 40 minutes on this case including meeting with the patient, reviewing the chart, nursing report, multidisciplinary team meeting, orders, and documentation. (1) Suicide attempt by multiple drug overdose: (2) Schizophrenia: (3) Unspecified psychosis not due to a substance or known physiological condition: (4) Intellectual disability: Plan 06/15/2024: Decrease lorazepam to 0.5 mg twice daily as needed 06/14/2024: Add additional dose of risperidone 0.5 mg in the afternoon. Increase nightly risperidone to 2mg HS. 06/13/2024: Continue current medications and tx plan 06/12/2024: -Adjust risperidone timing to 0.5mg qAM and 1.5mg HS and continue with risperidone prn. 06/11/2024: -Risperidone 0.5mg TID prn for psychosis/paranoia 06/10/2024: -Continue current medications and tx plan 06/09/2024: -Discontinue abilify -Start risperidone 1mg BID -Continue haldol 5mg BID prn po for psychosis/paranoia 06/08/2024: The patient was admitted to the [facility] (locked inpatient mental health unit) on q15 min checks (behavioral with suicide precautions) for safety. The patient will participate in group, recreational, and milieu therapies and will be offered additional individual and family sessions as clinically appropriate. -Start abilify 5mg daily po tomorrow -For behavioral emergency: IM Benadryl 50mg, IM haldol 5mg and IM ativan 2mg BID prn for aggression -Work on ensuring he has additional outpatient services-confirming new intake for case management and new outpatient psychiatry Inventory Assets Strengths: supportive relationships, trusts brother Needs: safety and stabilization, medication adjustment, additional coping skills, increased outpatient services Suicide Risk Level Suicide Risk Level: Moderate (q15 min suicide checks) (s/p suicide attempt and ongoing psychosis with paranoia but no evidence for self-harming behavior, denies SI and able to make needs know, no current evidence to suggest he's having or responding to command hallucinations) Risk Factors Assessment Male: Yes : Yes Do You Have Access To A Gun?: No (brother removing from home, will need to confirm this was done) Health Problems: No Mental Health Diagnoses: Yes Substance Use Disorders: No Previous Attempt: Yes (leading to admission) Previous Psychiatric Hospitalization: Yes Protective Factors Assessment Employed: Yes Stable Relationships: Yes Supportive Family: Yes Interval History Identifying Information PETER ROSALES is a 28-year-old man who currently lives in [place], has a history of schizophrenia, and was admitted on 06/07/24 22:27 on a 201 voluntary but then switched to 302 involuntary commitment for psychosis and aggression and suicide attempt via polypharmacy ingestion. Chief Complaint Psychosis, anxiety Review of Systems Sleep Information Total Hours of Sleep: 6 Meal Information Percent Meal Consumed - Breakfast: 0 Percent Meal Consumed - Lunch: 100 Percent Meal Consumed - Dinner: 100 Nutrition Comment: meal dated, labeled and refrigerated; pt. allowed to sleep Subjective Subjective Patient was seen & assessed and interval progress reviewed with treatment team nursing and social work Patient has been attending groups. Nursing noted patient is more communicative and is asking for assistance when needed. Has made realizations of some of the writings he made on initial admission and that they did not make sense. Slept 6+ hours. Showered in the morning. On interview patient presents a constricted to blunted affect. He reports sleeping well and said that his afternoon was better yesterday. Denies any muscle rigidity or stiffness. Reports not hearing voices. Reports some paranoia when he was trying to sleep however resolved. Says that he has to walk around to feel calm. Feels the medication at night is too powerful and took a few hours for her to work. Says that he likes outdoors including activities such as hiking and fishing. Can go back to his mother's on discharge. Physical Exam Mental Examination Appearance: Disheveled Eye Contact: Maintains Eye Contact Motor Behavior: Tics and Slowed Speech: Soft Mood: Euthymic Affect: Nervous Thought Process: Slowed Thinking Thought Content: Intact Hallucinations: Auditory Insight: Poor Judgement: Poor Vital Signs (Past 24 Hours) Last Vital Signs Temp 36.5 C 06/15/24 06:34 Pulse 75 06/15/24 06:34 Resp 16 06/15/24 06:34 BP 94/62 L 06/15/24 06:34 Pulse Ox 96 06/13/24 06:00 O2 Del Method Room Air 06/13/24 06:00 Results & Data ([facility]) Current Inpatient Medications Current Inpatient Medications: Current Inpatient Medications Acetaminophen (Acetaminophen 325 Mg Tab) 650 mg PO Q4H PRN PRN Reason: Headache or Minor Fever Stop: 07/07/24 22:30 Last Admin: 06/08/24 19:18 Dose: 650 mg Al Hydrox/Mg Hydrox/Simethicone (Aluminum/Magnesium Susp 30 Ml Udc) 30 ml PO Q4H PRN PRN Reason: GI Upset Stop: 07/07/24 22:30 Amoxicillin/Clavulanate Potassium (Amoxicillin/Clavulanate 875 Mg Tab) 1 tab PO BID DOMINIK; Protocol Stop: 06/16/24 10:59 Last Admin: 06/15/24 12:34 Dose: 1 tab Bismuth Subsalicylate (Bismuth Subsalicylate 262 Mg Chew) 2 tab PO Q30M PRN PRN Reason: Loose Stool/Diarrhea Stop: 07/07/24 22:30 Diphenhydramine HCl (Diphenhydramine 50 Mg/Ml Vial) 50 mg IM BID PRN PRN Reason: aggression Stop: 07/08/24 09:13 Docusate Sodium (Docusate Sodium 100 Mg Cap) 100 mg PO BID DOMINIK Stop: 07/10/24 20:59 Last Admin: 06/15/24 12:32 Dose: Not Given Haloperidol (Haloperidol 5 Mg Tab) 5 mg PO BID PRN PRN Reason: Agitation Stop: 07/08/24 02:36 Haloperidol Lactate (Haloperidol Lactate 5 Mg/Ml 1 Ml Vial) 5 mg IM BID PRN PRN Reason: aggression Stop: 07/08/24 09:13 Hydroxyzine HCl (Hydroxyzine Hcl 25 Mg Tab) 50 mg PO HSZ PRN PRN Reason: Insomnia Stop: 07/07/24 22:30 Last Admin: 06/14/24 23:14 Dose: 50 mg Hydroxyzine HCl (Hydroxyzine Hcl 25 Mg Tab) 25 mg PO Q4H PRN PRN Reason: Anxiety Stop: 07/07/24 22:30 Last Admin: 06/12/24 17:43 Dose: 25 mg Lorazepam (Lorazepam 2 Mg/1 Ml Vial) 2 mg IM BID PRN PRN Reason: aggression Stop: 07/08/24 09:13 Lorazepam (Lorazepam 0.5 Mg Tab) 0.5 mg PO BID PRN PRN Reason: Agitation/restlessness Stop: 07/08/24 02:34 Magnesium Hydroxide (Magnesium Hydroxide Susp 30 Ml Udc) 30 ml PO DAILY PRN PRN Reason: Constipation Stop: 07/07/24 22:30 Last Admin: 06/11/24 15:20 Dose: 30 ml Miscellaneous (Remove Nicoderm Patch) 1 each N/A DAILY@0859 [facility] Stop: 07/08/24 08:58 Last Admin: 06/15/24 12:41 Dose: 1 each Mupirocin (Mupirocin 2% Oint 22 Gm Tube) 1 appln TOP TID [facility] Stop: 07/09/24 13:59 Last Admin: 06/15/24 13:24 Dose: Not Given Nicotine (Nicotine 21 Mg/24 Hr Tdsy) 1 patch TD QAM [facility] Stop: 07/08/24 08:59 Last Admin: 06/15/24 12:31 Dose: 1 patch Nicotine Polacrilex (Nicotine Polacrilex 2 Mg Gum) 2 piece MT PRN PRN PRN Reason: Nicotine Withdrawal Symptoms Stop: 07/07/24 21:42 Last Admin: 06/14/24 18:54 Dose: 1 piece Polyethylene Glycol (Polyethylene (Miralax) 17 Gm Pack) 17 gm PO DAILY PRN PRN Reason: Constipation Stop: 07/10/24 19:52 Risperidone (Risperidone 0.5 Mg Tablet) 0.5 mg PO QAM DOMINIK Stop: 07/13/24 08:59 Last Admin: 06/15/24 12:34 Dose: 0.5 mg Risperidone (Risperidone 0.5 Mg Tablet) 0.5 mg PO TID PRN PRN Reason: psychosis/paranoia Stop: 07/14/24 05:40 Risperidone (Risperidone 0.25 Mg Tab) 0.5 mg PO DAILY@1400 DOMINIK Stop: 07/14/24 13:59 Last Admin: 06/15/24 13:24 Dose: Not Given Risperidone (Risperidone 2 Mg Tablet) 2 mg PO HS DOMINIK Stop: 07/14/24 21:59 Last Admin: 06/14/24 21:51 Dose: 2 mg Sodium Chloride (Sodium Chloride 0.65% Na Soln 45 Ml ([place])) 1 - 2 sprays NA PRN PRN PRN Reason: Nasal Dryness/Congestion Stop: 07/07/24 22:30 Vitamin D (Cholecalciferol 125 Mcg (5,000 Units) Tab) 125 mcg PO QAM DOMINIK Stop: 07/12/24 08:59 Last Admin: 06/15/24 12:32 Dose: 125 mcg Mental Health & Subst Abuse Tx Therapist Name of Therapist: n/a Director Of Market Intelligence Name of Director Of Market Intelligence: n/a Post Discharge Appointments Primary Care Physician Name Of Family Doctor/PCP: No PCP (1) Suicide attempt by multiple drug overdose Encounter type: initial encounter Qualified Code(s): T50.912A - Poisoning by multiple unspecified drugs, medicaments and biological substances, intentional self-harm, initial encounter
[2024-06-15] MEDS: LORazepam 0.5 MG TAB PO PRN (21:36)
--- NOTE | 2024-06-16 12:57 | Psychiatric Progress Note ---
Date of Service June 16, 2024 Impression / Recommendations Impression PETER ROSALES is a 28-year-old man who currently lives in [place], has a history of schizophrenia, and was admitted on 06/07/24 22:27 on a 201 voluntary but then switched to 302 involuntary commitment for psychosis and aggression and suicide attempt via polypharmacy ingestion. 302 commitment completed due to recent suicide attempt with ongoing psychosis and aggression and his inability to participate in any type of safety planning, he requires inpatient psychiatric hospitalization for safety and stabilization. Now on 303 commitment which expires 07/02/2024. Diagnostically consistent with unspecified psychosis with differential including schizophrenia vs schizoaffective disorder given psychomotor agitation and reports of recent poor sleep and suicide attempt vs MDD with psychotic features vs substance-induced or withdrawal (but unlikely as UDS negative and he denied any recent use except nicotine). Unclear what factors lead to his dismissal from his previous outpatient psychiatric provider. A: Patient's psychosis is improving. Voicing improvement in auditory hallucinations and appears less distractible. Concern for a.m. sedation and we will adjust medications accordingly. Case management intake scheduled for today. MNPR-recent acute aggression and significant psychosis with paranoia Overall, I spent a total of 40 minutes on this case including meeting with the patient, reviewing the chart, nursing report, multidisciplinary team meeting, orders, and documentation. (1) Suicide attempt by multiple drug overdose: (2) Schizophrenia: (3) Unspecified psychosis not due to a substance or known physiological condition: (4) Intellectual disability: Plan 06/16/2024: Reduce Vistaril as needed to 25 mg nightly Discontinue a.m. risperidone 0.5 mg 06/15/2024: Decrease lorazepam to 0.5 mg twice daily as needed 06/14/2024: Add additional dose of risperidone 0.5 mg in the afternoon. Increase nightly risperidone to 2mg HS. 06/13/2024: Continue current medications and tx plan 06/12/2024: -Adjust risperidone timing to 0.5mg qAM and 1.5mg HS and continue with risperidone prn. 06/11/2024: -Risperidone 0.5mg TID prn for psychosis/paranoia 06/10/2024: -Continue current medications and tx plan 06/09/2024: -Discontinue abilify -Start risperidone 1mg BID -Continue haldol 5mg BID prn po for psychosis/paranoia 06/08/2024: The patient was admitted to the [facility] ([facility] inpatient mental health unit) on q15 min checks (behavioral with suicide precautions) for safety. The patient will participate in group, recreational, and milieu therapies and will be offered additional individual and family sessions as clinically appropriate. -Start abilify 5mg daily po tomorrow -For behavioral emergency: IM Benadryl 50mg, IM haldol 5mg and IM ativan 2mg BID prn for aggression -Work on ensuring he has additional outpatient services-confirming new intake for case management and new outpatient psychiatry Inventory Assets Strengths: supportive relationships, trusts brother Needs: safety and stabilization, medication adjustment, additional coping skills, increased outpatient services Suicide Risk Level Suicide Risk Level: Moderate (q15 min suicide checks) (s/p suicide attempt and ongoing psychosis with paranoia but no evidence for self-harming behavior, denies SI and able to make needs know, no current evidence to suggest he's having or responding to command hallucinations) Risk Factors Assessment Male: Yes : Yes Do You Have Access To A Gun?: No (brother removing from home, will need to confirm this was done) Health Problems: No Mental Health Diagnoses: Yes Substance Use Disorders: No Previous Attempt: Yes (leading to admission) Previous Psychiatric Hospitalization: Yes Protective Factors Assessment Employed: Yes Stable Relationships: Yes Supportive Family: Yes Interval History Identifying Information PETER ROSALES is a 28-year-old man who currently lives in [place], has a history of schizophrenia, and was admitted on 06/07/24 22:27 on a 201 voluntary but then switched to 302 involuntary commitment for psychosis and aggression and suicide attempt via polypharmacy ingestion. Chief Complaint Psychosis Review of Systems Sleep Information Total Hours of Sleep: 5.5 Meal Information Percent Meal Consumed - Breakfast: 100 Percent Meal Consumed - Lunch: 100 Percent Meal Consumed - Dinner: 100 Nutrition Comment: meal dated, labeled and refrigerated; pt. allowed to sleep Subjective Subjective Patient was seen & assessed and interval progress reviewed with treatment team nursing and social work Overnight patient received lorazepam and Vistaril as needed. Case management intake scheduled for today. Patient slept 5.5 hours. Patient reports sleeping well however complains of a.m. grogginess. Reports having a distressing dream last night that woke him up. Reports voices are improved in quality and intensity. Offered long-acting injection and currently not interested. No other complaints. Denies muscle stiffness or rigidity. Physical Exam Mental Examination Appearance: Disheveled Eye Contact: Maintains Eye Contact Motor Behavior: Tics and Slowed Speech: Soft Mood: Euthymic Affect: Blunted and Nervous Thought Process: Slowed Thinking Thought Content: Intact Hallucinations: Auditory Insight: Poor Judgement: Poor Vital Signs (Past 24 Hours) Last Vital Signs Temp 36.6 C 06/16/24 06:19 Pulse 70 06/16/24 06:19 Resp 16 06/16/24 06:19 BP 90/62 L 06/16/24 06:19 Pulse Ox 96 06/13/24 06:00 O2 Del Method Room Air 06/13/24 06:00 Results & Data ([facility]) Current Inpatient Medications Current Inpatient Medications: Current Inpatient Medications Acetaminophen (Acetaminophen 325 Mg Tab) 650 mg PO Q4H PRN PRN Reason: Headache or Minor Fever Stop: 07/07/24 22:30 Last Admin: 06/16/24 12:52 Dose: 650 mg Al Hydrox/Mg Hydrox/Simethicone (Aluminum/Magnesium Susp 30 Ml Udc) 30 ml PO Q4H PRN PRN Reason: GI Upset Stop: 07/07/24 22:30 Bismuth Subsalicylate (Bismuth Subsalicylate 262 Mg Chew) 2 tab PO Q30M PRN PRN Reason: Loose Stool/Diarrhea Stop: 07/07/24 22:30 Diphenhydramine HCl (Diphenhydramine 50 Mg/Ml Vial) 50 mg IM BID PRN PRN Reason: aggression Stop: 07/08/24 09:13 Docusate Sodium (Docusate Sodium 100 Mg Cap) 100 mg PO BID DOMINIK Stop: 07/10/24 20:59 Last Admin: 06/16/24 08:54 Dose: Not Given Haloperidol (Haloperidol 5 Mg Tab) 5 mg PO BID PRN PRN Reason: Agitation Stop: 07/08/24 02:36 Haloperidol Lactate (Haloperidol Lactate 5 Mg/Ml 1 Ml Vial) 5 mg IM BID PRN PRN Reason: aggression Stop: 07/08/24 09:13 Hydroxyzine HCl (Hydroxyzine Hcl 25 Mg Tab) 25 mg PO HSZ PRN PRN Reason: Insomnia Stop: 07/07/24 22:30 Lorazepam (Lorazepam 2 Mg/1 Ml Vial) 2 mg IM BID PRN PRN Reason: aggression Stop: 07/08/24 09:13 Lorazepam (Lorazepam 0.5 Mg Tab) 0.5 mg PO BID PRN PRN Reason: Agitation/restlessness Stop: 07/08/24 02:34 Last Admin: 06/15/24 21:36 Dose: 0.5 mg Magnesium Hydroxide (Magnesium Hydroxide Susp 30 Ml Udc) 30 ml PO DAILY PRN PRN Reason: Constipation Stop: 07/07/24 22:30 Last Admin: 06/11/24 15:20 Dose: 30 ml Miscellaneous (Remove Nicoderm Patch) 1 each N/A DAILY@0859 [facility] Stop: 07/08/24 08:58 Last Admin: 06/16/24 08:54 Dose: 1 each Mupirocin (Mupirocin 2% Oint 22 Gm Tube) 1 appln TOP TID [facility] Stop: 07/09/24 13:59 Last Admin: 06/16/24 08:46 Dose: Not Given Nicotine (Nicotine 21 Mg/24 Hr Tdsy) 1 patch TD QAM [facility] Stop: 07/08/24 08:59 Last Admin: 06/16/24 08:45 Dose: 1 patch Nicotine Polacrilex (Nicotine Polacrilex 2 Mg Gum) 2 piece MT PRN PRN PRN Reason: Nicotine Withdrawal Symptoms Stop: 07/07/24 21:42 Last Admin: 06/14/24 18:54 Dose: 1 piece Polyethylene Glycol (Polyethylene (Miralax) 17 Gm Pack) 17 gm PO DAILY PRN PRN Reason: Constipation Stop: 07/10/24 19:52 Risperidone (Risperidone 0.5 Mg Tablet) 0.5 mg PO TID PRN PRN Reason: psychosis/paranoia Stop: 07/14/24 05:40 Risperidone (Risperidone 0.25 Mg Tab) 0.5 mg PO DAILY@1400 [facility] Stop: 07/14/24 13:59 Last Admin: 06/15/24 13:24 Dose: Not Given Risperidone (Risperidone 2 Mg Tablet) 2 mg PO HS [facility] Stop: 07/14/24 21:59 Last Admin: 06/15/24 20:53 Dose: 2 mg Sodium Chloride (Sodium Chloride 0.65% Na Soln 45 Ml ([place])) 1 - 2 sprays NA PRN PRN PRN Reason: Nasal Dryness/Congestion Stop: 07/07/24 22:30 Vitamin D (Cholecalciferol 125 Mcg (5,000 Units) Tab) 125 mcg PO QAM DOMINIK Stop: 07/12/24 08:59 Last Admin: 06/16/24 08:45 Dose: 125 mcg Mental Health & Subst Abuse Tx Therapist Name of Therapist: n/a Recruitment Assistant Name of Recruitment Assistant: n/a Post Discharge Appointments Primary Care Physician Name Of Family Doctor/PCP: No PCP (1) Suicide attempt by multiple drug overdose Encounter type: initial encounter Qualified Code(s): T50.912A - Poisoning by multiple unspecified drugs, medicaments and biological substances, intentional self-harm, initial encounter
[2024-06-16] MEDS: IBUPROFEN 200 MG TAB PO SCH (13:23)
[2024-06-16] MEDS: BENZOCAINE 20% (ORAJEL) 11.9 GM TUBE MT SCH (13:24)
[2024-06-16] MEDS: hydrOXYzine HCl 25 MG TAB PO PRN (21:59)
[2024-06-17] MEDS ORDERED: BENZOCAINE 20% (ORAJEL) 11.9 GM TUBE MT PRN (09:31)
--- NOTE | 2024-06-17 14:05 | Psychiatric Progress Note ---
Date of Service June 17, 2024 Impression / Recommendations Impression PETER ROSALES is a 28-year-old man who currently lives in [place], has a history of schizophrenia, and was admitted on 06/07/24 22:27 on a 201 voluntary but then switched to 302 involuntary commitment for psychosis and aggression and suicide attempt via polypharmacy ingestion. 302 commitment completed due to recent suicide attempt with ongoing psychosis and aggression and his inability to participate in any type of safety planning, he requires inpatient psychiatric hospitalization for safety and stabilization. Now on 303 commitment which expires 07/02/2024. Diagnostically consistent with unspecified psychosis with differential including schizophrenia vs schizoaffective disorder given psychomotor agitation and reports of recent poor sleep and suicide attempt vs MDD with psychotic features vs substance-induced or withdrawal (but unlikely as UDS negative and he denied any recent use except nicotine). Unclear what factors lead to his dismissal from his previous outpatient psychiatric provider. A: Patient psychosis improving with decreased intensity of auditory hallucinations. Presenting a more linear and logical thought process with decreased paranoia. Continues to have tooth pain and advised to follow up with a dentist outpatient. Offered long-acting injection and refused; provided counseling on this. Concern for excess sedation from nighttime medications and will move to earlier in the evening. MNPR-recent acute aggression and significant psychosis with paranoia Overall, I spent a total of 40 minutes on this case including meeting with the patient, reviewing the chart, nursing report, multidisciplinary team meeting, orders, and documentation. (1) Suicide attempt by multiple drug overdose: (2) Schizophrenia: (3) Unspecified psychosis not due to a substance or known physiological condition: (4) Intellectual disability: Plan 06/17/2024: Adjust nightly risperidone dose to evening 06/16/2024: Reduce Vistaril as needed to 25 mg nightly Discontinue a.m. risperidone 0.5 mg 06/15/2024: Decrease lorazepam to 0.5 mg twice daily as needed 06/14/2024: Add additional dose of risperidone 0.5 mg in the afternoon. Increase nightly ris peridone to 2mg HS. 06/13/2024: Continue current medications and tx plan 06/12/2024: -Adjust risperidone timing to 0.5mg qAM and 1.5mg HS and continue with risperidone prn. 06/11/2024: -Risperidone 0.5mg TID prn for psychosis/paranoia 06/10/2024: -Continue current medications and tx plan 06/09/2024: -Discontinue abilify -Start risperidone 1mg BID -Continue haldol 5mg BID prn po for psychosis/paranoia 06/08/2024: The patient was admitted to the [facility] ([facility] [place] [facility]) on q15 min checks (behavioral with suicide precautions) for safety. The patient will participate in group, recreational, and milieu therapies and will be offered additional individual and family sessions as clinically appropriate. -Start abilify 5mg daily po tomorrow -For behavioral emergency: IM Benadryl 50mg, IM haldol 5mg and IM ativan 2mg BID prn for aggression -Work on ensuring he has additional outpatient services-confirming new intake for case management and new outpatient psychiatry Inventory Assets Strengths: supportive relationships, trusts brother Needs: safety and stabilization, medication adjustment, additional coping skills, increased outpatient services Suicide Risk Level Suicide Risk Level: Moderate (q15 min suicide checks) (s/p suicide attempt and ongoing psychosis with paranoia but no evidence for self-harming behavior, denies SI and able to make needs know, no current evidence to suggest he's having or responding to command hallucinations) Risk Factors Assessment Male: Yes : Yes Do You Have Access To A Gun?: No (brother removing from home, will need to confirm this was done) Health Problems: No Mental Health Diagnoses: Yes Substance Use Disorders: No Previous Attempt: Yes (leading to admission) Previous Psychiatric Hospitalization: Yes Protective Factors Assessment Employed: Yes Stable Relationships: Yes Supportive Family: Yes Interval History Identifying Information PETER ROSALES is a 28-year-old man who currently lives in [place], has a history of schizophrenia, and was admitted on 06/07/24 22:27 on a 201 voluntary but then switched to 302 involuntary commitment for psychosis and aggression and suicide attempt via polypharmacy ingestion. Chief Complaint Psychosis, paranoia Review of Systems Sleep Information Total Hours of Sleep: 5.5 Meal Information Percent Meal Consumed - Breakfast: 100 Percent Meal Consumed - Lunch: 100 Percent Meal Consumed - Dinner: 100 Nutrition Comment: meal dated, labeled and refrigerated; pt. allowed to sleep Subjective Subjective Patient was seen & assessed and interval progress reviewed with treatment team nursing and social work Patient reports feeling tired this morning. Says he slept well last night. Reports tooth pain is improved. Patient feels like voices are approaching baseline. Reports confusion from case management appointment yesterday about why he was being asked of any questions; reassured. Reports feeling anxious that he can have a cigarette. Offered long-acting and currently refuses stating he wants to try the medication for a little bit longer and see how it works. Physical Exam Mental Examination Appearance: Disheveled Eye Contact: Maintains Eye Contact Motor Behavior: Tics and Slowed Speech: Soft Mood: Euthymic Affect: Blunted and Nervous Thought Process: Slowed Thinking Thought Content: Intact Hallucinations: Auditory Insight: Poor (to limited, improving) Judgement: Poor (to limited, improving) Vital Signs (Past 24 Hours) Last Vital Signs Temp 36.7 C 06/17/24 06:28 Pulse 65 06/17/24 06:29 Resp 16 06/17/24 06:28 BP 90/47 L 06/17/24 06:29 Pulse Ox 96 06/13/24 06:00 O2 Del Method Room Air 06/13/24 06:00 Results & Data ([facility]) Current Inpatient Medications Current Inpatient Medications: Current Inpatient Medications Acetaminophen (Acetaminophen 325 Mg Tab) 650 mg PO Q4H PRN PRN Reason: Headache or Minor Fever Stop: 07/07/24 22:30 Last Admin: 06/17/24 13:20 Dose: 650 mg Al Hydrox/Mg Hydrox/Simethicone (Aluminum/Magnesium Susp 30 Ml Udc) 30 ml PO Q4H PRN PRN Reason: GI Upset Stop: 07/07/24 22:30 Benzocaine (Benzocaine 20% (Orajel) 11.9 Gm Tube) 1 appln MT TID PRN PRN Reason: mouth pain Stop: 07/16/24 13:09 Bismuth Subsalicylate (Bismuth Subsalicylate 262 Mg Chew) 2 tab PO Q30M PRN PRN Reason: Loose Stool/Diarrhea Stop: 07/07/24 22:30 Diphenhydramine HCl (Diphenhydramine 50 Mg/Ml Vial) 50 mg IM BID PRN PRN Reason: aggression Stop: 07/08/24 09:13 Docusate Sodium (Docusate Sodium 100 Mg Cap) 100 mg PO BID DOMINIK Stop: 07/10/24 20:59 Last Admin: 06/17/24 08:39 Dose: 100 mg Haloperidol (Haloperidol 5 Mg Tab) 5 mg PO BID PRN PRN Reason: Agitation Stop: 07/08/24 02:36 Haloperidol Lactate (Haloperidol Lactate 5 Mg/Ml 1 Ml Vial) 5 mg IM BID PRN PRN Reason: aggression Stop: 07/08/24 09:13 Hydroxyzine HCl (Hydroxyzine Hcl 25 Mg Tab) 25 mg PO HSZ PRN PRN Reason: Insomnia Stop: 07/07/24 22:30 Last Admin: 06/16/24 21:59 Dose: 25 mg Ibuprofen (Ibuprofen 200 Mg Tab) 400 mg PO BID [facility] Stop: 07/16/24 13:04 Last Admin: 06/17/24 08:38 Dose: 400 mg Lorazepam (Lorazepam 2 Mg/1 Ml Vial) 2 mg IM BID PRN PRN Reason: aggression Stop: 07/08/24 09:13 Lorazepam (Lorazepam 0.5 Mg Tab) 0.5 mg PO BID PRN PRN Reason: Agitation/restlessness Stop: 07/08/24 02:34 Last Admin: 06/16/24 20:58 Dose: 0.5 mg Magnesium Hydroxide (Magnesium Hydroxide Susp 30 Ml Udc) 30 ml PO DAILY PRN PRN Reason: Constipation Stop: 07/07/24 22:30 Last Admin: 06/11/24 15:20 Dose: 30 ml Miscellaneous (Remove Nicoderm Patch) 1 each N/A DAILY@0859 [facility] Stop: 07/08/24 08:58 Last Admin: 06/17/24 07:41 Dose: 1 each Mupirocin (Mupirocin 2% Oint 22 Gm Tube) 1 appln TOP TID [facility] Stop: 07/09/24 13:59 Last Admin: 06/17/24 13:34 Dose: Not Given Nicotine (Nicotine 21 Mg/24 Hr Tdsy) 1 patch TD QAM [facility] Stop: 07/08/24 08:59 Last Admin: 06/17/24 07:41 Dose: 1 patch Nicotine Polacrilex (Nicotine Polacrilex 2 Mg Gum) 2 piece MT PRN PRN PRN Reason: Nicotine Withdrawal Symptoms Stop: 07/07/24 21:42 Last Admin: 06/17/24 07:31 Dose: 1 piece Polyethylene Glycol (Polyethylene (Miralax) 17 Gm Pack) 17 gm PO DAILY PRN PRN Reason: Constipation Stop: 07/10/24 19:52 Risperidone (Risperidone 0.5 Mg Tablet) 0.5 mg PO TID PRN PRN Reason: psychosis/paranoia Stop: 07/14/24 05:40 Risperidone (Risperidone 0.25 Mg Tab) 0.5 mg PO DAILY@1400 [facility] Stop: 07/14/24 13:59 Last Admin: 06/17/24 13:20 Dose: 0.5 mg Risperidone (Risperidone 2 Mg Tablet) 2 mg PO DAILY@2000 [facility] Stop: 07/17/24 19:59 Sodium Chloride (Sodium Chloride 0.65% Na Soln 45 Ml ([place])) 1 - 2 sprays NA P RN PRN PRN Reason: Nasal Dryness/Congestion Stop: 07/07/24 22:30 Vitamin D (Cholecalciferol 125 Mcg (5,000 Units) Tab) 125 mcg PO QAM [facility] Stop: 07/12/24 08:59 Last Admin: 06/17/24 08:39 Dose: 125 mcg Mental Health & Subst Abuse Tx Psychiatrist Name of Psychiatrist: Alice Psychiatrist's Date Of Appointment With Psychiatric Provider: 06/23/24 Time of Appointment with Psychiatrist: 2:30 PM Psychiatric Appointment Comment: Amy Salazar Therapist Name of Therapist: n/a Packaging Sales Consultant Name of Packaging Sales Consultant: KASEY Hui Phone Number for Packaging Sales Consultant: [phone] Post Discharge Appointments Primary Care Physician Name Of Family Doctor/PCP: No PCP (1) Suicide attempt by multiple drug overdose Encounter type: initial encounter Qualified Code(s): T50.912A - Poisoning by multiple unspecified drugs, medicaments and biological substances, intentional self-harm, initial encounter
[2024-06-17] MEDS: risperiDONE 2 MG TABLET PO SCH (20:29)
--- NOTE | 2024-06-18 15:02 | Psychiatric Progress Note ---
Date of Service June 18, 2024 Impression / Recommendations Impression PETER ROSALES is a 28-year-old man who currently lives in [place], has a history of schizophrenia, and was admitted on 06/07/24 22:27 on a 201 voluntary but then switched to 302 involuntary commitment for psychosis and aggression and suicide attempt via polypharmacy ingestion. 302 commitment completed due to recent suicide attempt with ongoing psychosis and aggression and his inability to participate in any type of safety planning, he requires inpatient psychiatric hospitalization for safety and stabilization. Now on 303 commitment which expires 07/02/2024. Diagnostically consistent with unspecified psychosis with differential including schizophrenia vs schizoaffective disorder given psychomotor agitation and reports of recent poor sleep and suicide attempt vs MDD with psychotic features vs substance-induced or withdrawal (but unlikely as UDS negative and he denied any recent use except nicotine). Unclear what factors lead to his dismissal from his previous outpatient psychiatric provider. A: Patient is doing well with decreased intensity of his auditory hallucinations. Per pt always present at baseline however is currently tolerable for patient. Concern for intermittent paranoia. Pt is less sedated in the AM with recent medication adjustments. Proposed long-acting injection and patient currently refuses citing wanting to see how well the current medications are tolerated. MNPR-recent acute aggression and significant psychosis with paranoia Overall, I spent a total of 35 minutes on this case including meeting with the patient, reviewing the chart, nursing report, multidisciplinary team meeting, orders, and documentation. (1) Suicide attempt by multiple drug overdose: (2) Schizophrenia: (3) Unspecified psychosis not due to a substance or known physiological condi tion: (4) Intellectual disability: Plan 06/18/2024: Continue medications and treatment plan 06/17/2024: Adjust nightly risperidone dose to evening 06/16/2024: Reduce Vistaril as needed to 25 mg nightly Discontinue a.m. risperidone 0.5 mg 06/15/2024: Decrease lorazepam to 0.5 mg twice daily as needed 06/14/2024: Add additional dose of risperidone 0.5 mg in the afternoon. Increase nightly risperidone to 2mg HS. 06/13/2024: Continue current medications and tx plan 06/12/2024: -Adjust risperidone timing to 0.5mg qAM and 1.5mg HS and continue with risperidone prn. 06/11/2024: -Risperidone 0.5mg TID prn for psychosis/paranoia 06/10/2024: -Continue current medications and tx plan 06/09/2024: -Discontinue abilify -Start risperidone 1mg BID -Continue haldol 5mg BID prn po for psychosis/paranoia 06/08/2024: The patient was admitted to the [facility] ([facility] [place] [facility]) on q15 min checks (behavioral with suicide precautions) for safety. The patient will participate in group, recreational, and milieu therapies and will be offered additional individual and family sessions as clinically appropriate. -Start abilify 5mg daily po tomorrow -For behavioral emergency: IM Benadryl 50mg, IM haldol 5mg and IM ativan 2mg BID prn for aggression -Work on ensuring he has additional outpatient services-confirming new intake for case management and new outpatient psychiatry Inventory Assets Strengths: supportive relationships, trusts brother Needs: safety and stabilization, medication adjustment, additional coping skills, increased outpatient services Suicide Risk Level Suicide Risk Level: Moderate (q15 min suicide checks) (s/p suicide attempt and ongoing psychosis with paranoia but no evidence for self-harming behavior, denies SI and able to make needs know, no current evidence to suggest he's having or responding to command hallucinations) Risk Factors Assessment Male: Yes : Yes Do You Have Access To A Gun?: No (brother removing from home, will need to confirm this was done) Health Problems: No Mental Health Diagnoses: Yes Substance Use Disorders: No Previous Attempt: Yes (leading to admission) Previous Psychiatric Hospitalization: Yes Protective Factors Assessment Employed: Yes Stable Relationships: Yes Supportive Family: Yes Interval History Identifying Information PETER ROSALES is a 28-year-old man who currently lives in [place], has a history of schizophrenia, and was admitted on 06/07/24 22:27 on a 201 voluntary but then switched to 302 involuntary commitment for psychosis and aggression and suicide attempt via polypharmacy ingestion. Chief Complaint Psychosis Review of Systems Sleep Information Total Hours of Sleep: 6.5 Meal Information Percent Meal Consumed - Breakfast: 100 Percent Meal Consumed - Lunch: 100 Percent Meal Consumed - Dinner: 100 Nutrition Comment: meal dated, labeled and refrigerated; pt. allowed to sleep Subjective Subjective Patient was seen & assessed and interval progress reviewed with treatment team nursing and social work Patient reports feeling less sedated this morning. Had bowel movement. Reports having more energy. Says it was hard for him to go to sleep however was able to stay asleep. Rates his voices at baseline. Reports occasional paranoia and anxiety. Presents a future plan to do his chores and attend appointments. Asking about his work. Denies SI and HI. Physical Exam Mental Examination Appearance: Disheveled Eye Contact: Maintains Eye Contact Motor Behavior: Tics and Slowed Speech: Soft Mood: Euthymic Affect: Blunted and Nervous Thought Process: Slowed Thinking Thought Content: Intact Hallucinations: Auditory Insight: Poor (to limited, improving) Judgement: Poor (to limited, improving) Vital Signs (Past 24 Hours) Last Vital Signs Temp 36.4 C L 06/18/24 06:39 Pulse 69 06/18/24 08:24 Resp 16 06/18/24 06:39 BP 103/56 L 06/18/24 08:24 Pulse Ox 96 06/13/24 06:00 O2 Del Method Room Air 06/13/24 06:00 Results & Data ([facility] [place]) Current Inpatient Medications Current Inpatient Medications: Current Inpatient Medications Acetaminophen (Acetaminophen 325 Mg Tab) 650 mg PO Q4H PRN PRN Reason: Headache or Minor Fever Stop: 07/07/24 22:30 Last Admin: 06/17/24 13:20 Dose: 650 mg Al Hydrox/Mg Hydrox/Simethicone (Aluminum/Magnesium Susp 30 Ml Udc) 30 ml PO Q4H PRN PRN Reason: GI Upset Stop: 07/07/24 22:30 Benzocaine (Benzocaine 20% (Orajel) 11.9 Gm Tube) 1 appln MT TID PRN PRN Reason: mouth pain Stop: 07/16/24 13:09 Bismuth Subsalicylate (Bismuth Subsalicylate 262 Mg Chew) 2 tab PO Q30M PRN PRN Reason: Loose Stool/Diarrhea Stop: 07/07/24 22:30 Diphenhydramine HCl (Diphenhydramine 50 Mg/Ml Vial) 50 mg IM BID PRN PRN Reason: aggression Stop: 07/08/24 09:13 Docusate Sodium (Docusate Sodium 100 Mg Cap) 100 mg PO BID DOMINIK Stop: 07/10/24 20:59 Last Admin: 06/18/24 09:14 Dose: 100 mg Haloperidol (Haloperidol 5 Mg Tab) 5 mg PO BID PRN PRN Reason: Agitation Stop: 07/08/24 02:36 Haloperidol Lactate (Haloperidol Lactate 5 Mg/Ml 1 Ml Vial) 5 mg IM BID PRN PRN Reason: aggression Stop: 07/08/24 09:13 Hydroxyzine HCl (Hydroxyzine Hcl 25 Mg Tab) 25 mg PO HSZ PRN PRN Reason: Insomnia Stop: 07/07/24 22:30 Last Admin: 06/17/24 21:30 Dose: 25 mg Ibuprofen (Ibuprofen 200 Mg Tab) 400 mg PO BID [facility] Stop: 07/16/24 13:04 Last Admin: 06/18/24 09:18 Dose: 400 mg Lorazepam (Lorazepam 2 Mg/1 Ml Vial) 2 mg IM BID PRN PRN Reason: aggression Stop: 07/08/24 09:13 Lorazepam (Lorazepam 0.5 Mg Tab) 0.5 mg PO BID PRN PRN Reason: Agitation/restlessness Stop: 07/08/24 02:34 Last Admin: 06/17/24 20:07 Dose: 0.5 mg Magnesium Hydroxide (Magnesium Hydroxide Susp 30 Ml Udc) 30 ml PO DAILY PRN PRN Reason: Constipation Stop: 07/07/24 22:30 Last Admin: 06/11/24 15:20 Dose: 30 ml Miscellaneous (Remove Nicoderm Patch) 1 each N/A DAILY@0859 [facility] Stop: 07/08/24 08:58 Last Admin: 06/18/24 09:15 Dose: 1 each Mupirocin (Mupirocin 2% Oint 22 Gm Tube) 1 appln TOP TID [facility] Stop: 07/09/24 13:59 Last Admin: 06/18/24 14:20 Dose: Not Given Nicotine (Nicotine 21 Mg/24 Hr Tdsy) 1 patch TD QAM [facility] Stop: 07/08/24 08:59 Last Admin: 06/18/24 09:15 Dose: 1 patch Nicotine Polacrilex (Nicotine Polacrilex 2 Mg Gum) 2 piece MT PRN PRN PRN Reason: Nicotine Withdrawal Symptoms Stop: 07/07/24 21:42 Last Admin: 06/17/24 07:31 Dose: 1 piece Polyethylene Glycol (Polyethylene (Miralax) 17 Gm Pack) 17 gm PO DAILY PRN PRN Reason: Constipation Stop: 07/10/24 19:52 Risperidone (Risperidone 0.5 Mg Tablet) 0.5 mg PO TID PRN PRN Reason: psychosis/paranoia Stop: 07/14/24 05:40 Risperidone (Risperidone 0.25 Mg Tab) 0.5 mg PO DAILY@1400 [facility] Stop: 07/14/24 13:59 Last Admin: 06/18/24 14:19 Dose: 0.5 mg Risperidone (Risperidone 2 Mg Tablet) 2 mg PO DAILY@2000 [facility] Stop: 07/17/24 19:59 Last Admin: 06/17/24 20:29 Dose: 2 mg Sodium Chloride (Sodium Chloride 0.65% Na Soln 45 Ml ([place])) 1 - 2 sprays NA PRN PRN PRN Reason: Nasal Dryness/Congestion Stop: 07/07/24 22:30 Vitamin D (Cholecalciferol 125 Mcg (5,000 Units) Tab) 125 mcg PO QAM [facility] Stop: 07/12/24 08:59 Last Admin: 06/18/24 09:14 Dose: 125 mcg Mental Health & Subst Abuse Tx Psychiatrist Name of Psychiatrist: Alice Psychiatrist's Date Of Appointment With Psychiatric Provider: 06/23/24 Time of Appointment with Psychiatrist: 2:30 PM Psychiatric Appointment Comment: Amy Salazar Therapist Name of Therapist: n/a Java Oracle Developer Name of Java Oracle Developer: KASEY Hui Phone Number for Java Oracle Developer: [phone] Date of Appointment with Java Oracle Developer: 06/20/24 Time of Appointment with Java Oracle Developer: 3:30pm Case Management Appointment Comment: Susan Montejo [place] Post Discharge Appointments Primary Care Physician Name Of Family Doctor/PCP: No PCP Contact Information Discharge Discharge [address]: [address] [place] [address] (1) Suicide attempt by multiple drug overdose Encounter type: initial encounter Qualified Code(s): T50.912A - Poisoning by multiple unspecified drugs, medicaments and biological substances, intentional self-harm, initial encounter
--- NOTE | 2024-06-19 13:37 | Psychiatric Progress Note ---
Date of Service June 19, 2024 Impression / Recommendations Impression PETER ROSALES is a 28-year-old man who currently lives in [place], has a history of schizophrenia, and was admitted on 06/07/24 22:27 on a 201 voluntary but then switched to 302 involuntary commitment for psychosis and aggression and suicide attempt via polypharmacy ingestion. 302 commitment completed due to recent suicide attempt with ongoing psychosis and aggression and his inability to participate in any type of safety planning, he requires inpatient psychiatric hospitalization for safety and stabilization. Now on 303 commitment which expires 07/02/2024. Diagnostically consistent with unspecified psychosis with differential including schizophrenia vs schizoaffective disorder given psychomotor agitation and reports of recent poor sleep and suicide attempt vs MDD with psychotic features vs substance-induced or withdrawal (but unlikely as UDS negative and he denied any recent use except nicotine). Unclear what factors lead to his dismissal from his previous outpatient psychiatric provider. A: Patient is doing well with decreased intensity of his auditory hallucinations. Per pt always present at baseline however is currently tolerable for patient. Concern for intermittent paranoia. Patient did not sleep well overnight and will increase slightly hydroxyzine. Previous physical complaints from yesterday resolved. Patient is future oriented to return to work. MNPR-recent acute aggression and significant psychosis with paranoia Overall, I spent a total of 35 minutes on this case including meeting with the patient, reviewing the chart, nursing report, multidisciplinary team meeting, o rders, and documentation. (1) Suicide attempt by multiple drug overdose: (2) Schizophrenia: (3) Unspecified psychosis not due to a substance or known physiological condition: (4) Intellectual disability: Plan 06/19/2024: Increase Hydroxyzine to 50mg HS 06/18/2024: Continue medications and treatment plan 06/17/2024: Adjust nightly risperidone dose to evening 06/16/2024: Reduce Vistaril as needed to 25 mg nightly Discontinue a.m. risperidone 0.5 mg 06/15/2024: Decrease lorazepam to 0.5 mg twice daily as needed 06/14/2024: Add additional dose of risperidone 0.5 mg in the afternoon. Increase nightly risperidone to 2mg HS. 06/13/2024: Continue current medications and tx plan 06/12/2024: -Adjust risperidone timing to 0.5mg qAM and 1.5mg HS and continue with risperidone prn. 06/11/2024: -Risperidone 0.5mg TID prn for psychosis/paranoia 06/10/2024: -Continue current medications and tx plan 06/09/2024: -Discontinue abilify -Start risperidone 1mg BID -Continue haldol 5mg BID prn po for psychosis/paranoia 06/08/2024: The patient was admitted to the [facility]) on q15 min checks (behavioral with suicide precautions) for safety. The patient will participate in group, recreational, and milieu therapies and will be offered additional individual and family sessions as clinically appropriate. -Start abilify 5mg daily po tomorrow -For behavioral emergency: IM Benadryl 50mg, IM haldol 5mg and IM ativan 2mg BID prn for aggression -Work on ensuring he has additional outpatient services-confirming new intake for case management and new outpatient psychiatry Inventory Assets Strengths: supportive relationships, trusts brother Needs: safety and stabilization, medication adjustment, additional coping skills, increased outpatient services Suicide Risk Level Suicide Risk Level: Moderate (q15 min suicide checks) (s/p suicide attempt and ongoing psychosis with paranoia but no evidence for self-harming behavior, den ies SI and able to make needs know, no current evidence to suggest he's having or responding to command hallucinations) Risk Factors Assessment Male: Yes : Yes Do You Have Access To A Gun?: No (brother removing from home, will need to confirm this was done) Health Problems: No Mental Health Diagnoses: Yes Substance Use Disorders: No Previous Attempt: Yes (leading to admission) Previous Psychiatric Hospitalization: Yes Protective Factors Assessment Employed: Yes Stable Relationships: Yes Supportive Family: Yes Interval History Identifying Information PETER ROSALES is a 28-year-old man who currently lives in [place], has a history of schizophrenia, and was admitted on 06/07/24 22:27 on a 201 voluntary but then switched to 302 involuntary commitment for psychosis and aggression and suicide attempt via polypharmacy ingestion. Chief Complaint Psychosis Review of Systems Sleep Information Total Hours of Sleep: 4.25 Meal Information Percent Meal Consumed - Breakfast: 0 Percent Meal Consumed - Lunch: 100 Percent Meal Consumed - Dinner: 100 Nutrition Comment: Patient reports not feeling well and returned to bed. Subjective Subjective Patient was seen & assessed and interval progress reviewed with treatment team nursing and social work Pt slept 4.5 hours. Reports chest pain resolved. says he was not sleepy last night. 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 Reports voices are baseline. Reports at times worrying excessively about things and has difficulty taking his mind off of it. Appears slightly restless. Physical Exam Mental Examination Appearance: Disheveled Eye Contact: Maintains Eye Contact Motor Behavior: Tics and Slowed Speech: Soft Mood: Euthymic Affect: Blunted and Nervous Thought Process: Slowed Thinking Thought Content: Intact Hallucinations: Auditory Insight: Poor (to limited, improving) Judgement: Poor (to limited, improving) Vital Signs (Past 24 Hours) Last Vital Signs Temp 36.9 C 06/19/24 06:27 Pulse 112 H 06/19/24 06:27 Resp 16 06/19/24 06:27 BP 104/66 06/19/24 06:27 Pulse Ox 98 06/18/24 15:06 O2 Del Method Room Air 06/18/24 15:06 Results & Data ([facility]) Current Inpatient Medications Current Inpatient Medications: Current Inpatient Medications Acetaminophen (Acetaminophen 325 Mg Tab) 650 mg PO Q4H PRN PRN Reason: Headache or Minor Fever Stop: 07/07/24 22:30 Last Admin: 06/17/24 13:20 Dose: 650 mg Al Hydrox/Mg Hydrox/Simethicone (Aluminum/Magnesium Susp 30 Ml Udc) 30 ml PO Q4H PRN PRN Reason: GI Upset Stop: 07/07/24 22:30 Benzocaine (Benzocaine 20% (Orajel) 11.9 Gm Tube) 1 appln MT TID PRN PRN Reason: mouth pain Stop: 07/16/24 13:09 Bismuth Subsalicylate (Bismuth Subsalicylate 262 Mg Chew) 2 tab PO Q30M PRN PRN Reason: Loose Stool/Diarrhea Stop: 07/07/24 22:30 Diphenhydramine HCl (Diphenhydramine 50 Mg/Ml Vial) 50 mg IM BID PRN PRN Reason: aggression Stop: 07/08/24 09:13 Docusate Sodium (Docusate Sodium 100 Mg Cap) 100 mg PO BID DOMINIK Stop: 07/10/24 20:59 Last Admin: 06/19/24 10:11 Dose: Not Given Haloperidol (Haloperidol 5 Mg Tab) 5 mg PO BID PRN PRN Reason: Agitation Stop: 07/08/24 02:36 Haloperidol Lactate (Haloperidol Lactate 5 Mg/Ml 1 Ml Vial) 5 mg IM BID PRN PRN Reason: aggression Stop: 07/08/24 09:13 Hydroxyzine HCl (Hydroxyzine Hcl 25 Mg Tab) 25 mg PO HSZ PRN PRN Reason: Insomnia Stop: 07/07/24 22:30 Last Admin: 06/18/24 23:35 Dose: 25 mg Ibuprofen (Ibuprofen 200 Mg Tab) 400 mg PO BID [facility] Stop: 07/16/24 13:04 Last Admin: 06/19/24 10:05 Dose: 400 mg Lorazepam (Lorazepam 2 Mg/1 Ml Vial) 2 mg IM BID PRN PRN Reason: aggression Stop: 07/08/24 09:13 Lorazepam (Lorazepam 0.5 Mg Tab) 0.5 mg PO BID PRN PRN Reason: Agitation/restlessness Stop: 07/08/24 02:34 Last Admin: 06/17/24 20:07 Dose: 0.5 mg Magnesium Hydroxide (Magnesium Hydroxide Susp 30 Ml Udc) 30 ml PO DAILY PRN PRN Reason: Constipation Stop: 07/07/24 22:30 Last Admin: 06/11/24 15:20 Dose: 30 ml Miscellaneous (Remove Nicoderm Patch) 1 each N/A DAILY@0859 [facility] Stop: 07/08/24 08:58 Last Admin: 06/19/24 10:10 Dose: 1 each Mupirocin (Mupirocin 2% Oint 22 Gm Tube) 1 appln TOP TID [facility] Stop: 07/09/24 13:59 Last Admin: 06/19/24 10:09 Dose: Not Given Nicotine (Nicotine 21 Mg/24 Hr Tdsy) 1 patch TD QAM [facility] Stop: 07/08/24 08:59 Last Admin: 06/19/24 10:06 Dose: 1 patch Nicotine Polacrilex (Nicotine Polacrilex 2 Mg Gum) 2 piece MT PRN PRN PRN Reason: Nicotine Withdrawal Symptoms Stop: 07/07/24 21:42 Last Admin: 06/19/24 10:32 Dose: 2 piece Polyethylene Glycol (Polyethylene (Miralax) 17 Gm Pack) 17 gm PO DAILY PRN PRN Reason: Constipation Stop: 07/10/24 19:52 Risperidone (Risperidone 0.5 Mg Tablet) 0.5 mg PO TID PRN PRN Reason: psychosis/paranoia Stop: 07/14/24 05:40 Risperidone (Risperidone 0.25 Mg Tab) 0.5 mg PO DAILY@1400 [facility] Stop: 07/14/24 13:59 Last Admin: 06/18/24 14:19 Dose: 0.5 mg Risperidone (Risperidone 2 Mg Tablet) 2 mg PO DAILY@2000 [facility] Stop: 07/17/24 19:59 Last Admin: 06/18/24 20:38 Dose: 2 mg Sodium Chloride (Sodium Chloride 0.65% Na Soln 45 Ml (Cyr)) 1 - 2 sprays NA PRN PRN PRN Reason: Nasal Dryness/Congestion Stop: 07/07/24 22:30 Vitamin D (Cholecalciferol 125 Mcg (5,000 Units) Tab) 125 mcg PO QAM [facility] Stop: 07/12/24 08:59 Last Admin: 06/19/24 10:05 Dose: 125 mcg Mental Health & Subst Abuse Tx Psychiatrist Name of Psychiatrist: Alice Psychiatrist's Date Of Appointment With Psychiatric Provider: 06/23/24 Time of Appointment with Psychiatrist: 2:30 PM Psychiatric Appointment Comment: Amy Salazar Therapist Name of Therapist: n/a Top Executive Name of Top Executive: KASEY Hui Phone Number for Top Executive: [phone] Date of Appointment with Top Executive: 06/20/24 Time of Appointment with Top Executive: 3:30pm Case Management Appointment Comment: Susan Montejo [facility] Discharge Appointments Primary Care Physician Name Of Family Doctor/PCP: No PCP Contact Information Discharge Discharge Address: [address] [place] [address] (1) Suicide attempt by multiple drug overdose Encounter type: initial encounter Qualified Code(s): T50.912A - Poisoning by multiple unspecified drugs, medicaments and biological substances, intentional self-harm, initial encounter
[2024-06-19] MEDS: hydrOXYzine HCl 25 MG TAB PO PRN (20:34)
[2024-06-20] MEDS: SERTRALINE HCL 50 MG TABLET PO SCH (11:18)
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
== END 2024-06-20 13:24 | disposition home or self-care (01) | DRG 885 ==
LOC: ED 16:07 → 3S 22:08 → SUATTDRO 22:27 → 3S 23:46